=== PATIENT | female | born 1960 | race Caucasian/White ===

== ENCOUNTER 2022-10-04 08:41 | Outpatient (AMB) | payer OTHER, SELFPAY ==
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
[2022-10-04 08:44] VITALS: BP 126/76; PULSE 64; O2SAT 94; BMI 45.8
== END 2022-10-04 09:22 | disposition home or self-care (01) ==
PROVIDERS: PCP Internal Medicine; Visit Provider Internal Medicine
DX: M25.571 Pain in right ankle and joints of right foot (principal); M96.1 Postlaminectomy syndrome, not elsewhere classified; M25.441 Effusion, right hand; M25.442 Effusion, left hand
CPT/HCPCS: 99204

== ENCOUNTER → 2022-10-04 08:41 | Outpatient (BNVA) | payer OTHER, SELFPAY | PROVIDERS: PCP Internal Medicine; Visit Provider Internal Medicine | DX: M96.1 Postlaminectomy syndrome, not elsewhere classified (principal); M25.571 Pain in right ankle and joints of right foot; M25.449 Effusion, unspecified hand | CPT/HCPCS: 99202 ==

== ENCOUNTER 2022-11-10 07:41 | Outpatient (REF) | payer OTHER, SELFPAY | END 2022-11-10 07:42 | disposition home or self-care (01) | LOC: HO.CT 07:41 | PROVIDERS: PCP Physician Assistant Medical; Visit Provider Internal Medicine | DX: M96.1 Postlaminectomy syndrome, not elsewhere classified (principal) | CPT/HCPCS: 72131 ==

== ENCOUNTER 2022-11-17 12:12 | Outpatient (REF) | payer OTHER, SELFPAY | END 2022-11-17 12:13 | disposition home or self-care (01) | LOC: HO.MRI 12:12 | PROVIDERS: PCP Physician Assistant Medical; Visit Provider Internal Medicine | DX: M25.571 Pain in right ankle and joints of right foot (principal) | CPT/HCPCS: 73721 ==

== ENCOUNTER 2022-12-06 14:32 | Outpatient (AMB) | payer OTHER, SELFPAY ==
[2022-12-06 14:38] VITALS: RESP 12; BMI 46.1
--- NOTE | 2022-12-06 14:38 | A.OFFVIS_ITS ---
Intake Vital Signs 12/06/22 14:38 Height 5 ft 5 in Weight 277 lb BMI 46.1 Blood Pressure Location Lt brachial Position Sitting Respiration 12 Intake Visit Reasons: MRI/CT scan results/Lvm Allergies Penicillins Allergy (Severe, Verified 12/06/22 14:39) Anaphylaxis omeprazole [From Prilosec] Adverse Reaction (Severe, Verified 12/06/22 14:39) Rash pregabalin [From Lyrica] Adverse Reaction (Severe, Verified 12/06/22 14:39) fluid gain Medication List - Last Reconciled 12/06/22 by Whitley Rudolph LPN aspirin (Adult Aspirin Regimen) 81 mg PO DAILY celecoxib (Celebrex) 200 mg PO BID empagliflozin (Jardiance) 10 mg PO DAILY epinephrine (EpiPen) 0.3 mg IM Q4H PRN flecainide 100 mg PO Q12H gabapentin 300 mg PO QID glimepiride 2 mg PO DAILY PRN mecobalamin (vitamin B12) mcg IM .monthly metoprolol tartrate 25 mg PO DAILY mirabegron ER (Myrbetriq) 50 mg PO DAILY nitroglycerin 0.4 mg sublingual Q5M PRN ondansetron HCl 4 mg PO Q8H oxybutynin chloride ER 15 mg PO DAILY pantoprazole 40 mg PO DAILY pravastatin 10 mg PO BEDTIME rizatriptan (Maxalt) take 1 tab at onset of headache; if no relief may repeat 1 tab after at least 2 hrs; max = 3 tabs/24 hr PO ropinirole 3 mg PO BEDTIME tizanidine 2 mg PO Q8H PRN torsemide 40 mg PO DAILY tramadol 50 mg PO BID PRN trazodone 100 mg PO BEDTIME PRN venlafaxine ER 150 mg PO DAILY HPI MRI/CT scan results/Lvm HPI Details 62-year-old female who presents today to the office for a review of result. She has been experiencing back and leg pain. She states that her back pain is mostly localized on one side in the low back region. She had lumbar injections, which provided relief for a week, by Dr. Palma at [facility]. She had tried tramadol in the past. She states that her leg/foot pain has been worsening. She has weakness and instability in her lower extremities. She mostly stumbles during ambulation, which has led to multiple falls in the past. She has also noticed leg buckling while walking. She has had difficulty standing or walking in recent weeks. [facility] Medical History (Updated 12/06/22 @ 16:47 by Cheng Cruz MD) Lumbar post-laminectomy syndrome Hiatal hernia Diffuse spasm of esophagus Obstructive sleep apnea syndrome Osteoporosis Hyperlipidemia Family history of breast cancer Migraine Vitamin D deficiency Restless legs Salomon esophagus Morbid obesity Fibromyalgia Insomnia Cobalamin deficiency Spinal stenosis of lumbar region Lumbar radiculopathy Overactive bladder Chronic kidney disease, stage 3a Pain in left foot Allergy to penicillin ROQUE (dyspnea on exertion) Sensory ataxia Peripheral venous insufficiency Thrombophlebitis of superficial veins of both lower extremities Heart failure with normal ejection fraction Paroxysmal supraventricular tachycardia Coronary atherosclerosis Prinzmetal angina Hypertensive renal disease Anisocoria Chronic pain syndrome Anxiety Major depressive disorder Iron deficiency anemia Review of Systems Const All systems reviewed & are unremarkable except as noted in HPI and below Physical Exam Vital Signs: Last Vital Signs Resp 12 12/06/22 14:38 BMI result Body Mass Index 46.1 General: Appears afebrile. Alert and oriented. Mood and affect appropriate. Follows and participates in conversation appropriately. Respiratory effort is unlabored. Able to transition from sit to stand unassisted. Ambulates with bilaterally normal heel strike and toe off. Results Reviewed Results Reviewed: 11/17/22: MR ANKLE WITHOUT CONTRAST, RIGHT FINDINGS: BONE AND ARTICULAR CARTILAGE: Irregular linear low T1/low T2 signal through the medial aspect of the distal tibia contacting the medial, anterior, and posterior cortices. Prominent adjacent marrow edema. Findings are consistent with an incomplete fracture. No extension to the articular surface. Mildly displaced, oblique fracture through the distal fibular diametaphysis with cortical step off measuring up to 0.3 cm anteriorly. Surrounding new bone/callus formation with prominent marrow edema, consistent with a subacute fracture. The ankle mortise is maintained. No talar osteochondral lesion. No concerning lytic or blastic osseous lesion. Degenerative cystic change at the angle of [place]. Prominent plantar calcaneal spur. ACHILLES TENDON: Thickening of the distal Achilles tendon consistent with chronic tendinosis. No measurable tear. OTHER TENDONS: Fluid within the posterior tibialis, peroneal brevis, and peroneal longus tendon sheaths, which may represent normal variation versus mild tenosynovitis. Diffuse thickening and increased T2 signal of the tendon insertion, consistent with tendinosis. No transverse tendon tear or tendon retraction. LIGAMENTS: Complete absence of the anterior talofibular ligament consistent with a complete ligament tear. Near-complete full-thickness tear of the calcaneofibular and posterior talofibular ligaments. Grade 1 sprain/partial tear of the deltoid ligament. JOINT FLUID AND SOFT TISSUES: [id number] tibiotalar and posterior subtalar joint effusions. Prominent lateral subcutaneous edema. No soft tissue mass or fluid collection. PLANTAR FASCIA: Intact. SINUS TARSI AND TARSAL TUNNEL: Mild attenuation of the sinus tarsi which can be seen in the setting of sinus tarsi syndrome. Patent tarsal tunnel. IMPRESSION: 1. Incomplete fracture through the medial aspect of the distal tibia with prominent adjacent marrow edema. No extension to the articular surface. 2. Mildly displaced, subacute fracture through the distal fibular diametaphysis with prominent surrounding new bone/callus formation and prominent marrow edema. 3. Complete tear of the anterior talofibular ligament with near-complete tears of the calcaneofibular and posterior talofibular ligaments. Grade 1 sprain/partial tear of the deltoid ligament. 4. Fluid within the posterior tibialis, peroneal brevis, and peroneal longus tendon sheaths, which may represent normal variation versus mild tenosynovitis. No transverse tendon tear or tendon retraction. Chronic Achilles tendinosis without a measurable tear. 5. [id number] tibiotalar and posterior subtalar joint effusions. Prominent lateral subcutaneous edema. 6. Attenuation of the sinus tarsi which can be seen in the setting of sinus tarsi syndrome. 11/10/22: CT LUMBAR SPINE WITHOUT CONTRAST FINDINGS: Transitional lumbosacral anatomy with sacralized L5 vertebral body characterized by hypertrophy of the bilateral L5 transverse processes and fusion with the sacrum bilaterally (Castellvi IIIb). For the purposes of this examination the L5-S1 disc space can be seen on image 104, series 4. There is also fusion across the L5-S1 disc space. Normal lumbar lordosis is preserved. Grade 1 anterolisthesis at L3-L4. Vertebral body heights are maintained. There is no suspicious osseous lesion. Severe L4-L5 disc height loss with subchondral sclerosis/cystic change, ventral disc osteophyte and vacuum phenomenon. There is also mild to moderate L1-L2 disc height loss with vacuum phenomenon and mild L3-L4 disc height loss. Please not canal patency is not well assessed on this examination due to inherent limitations of CT without intrathecal contrast. Within these limitations, there is suggestion of congenital spinal canal narrowing with crowding/prominence of the dorsal epidural fat and degenerative changes with level by level detail are as follows: L1-L2: Annular disc bulge with punctate focus of inferiorly extruded air within the left lateral recess, mild bilateral facet hypertrophy and prominence of the dorsal epidural fat. Apparent mild spinal canal and subarticular zone narrowing. Mild bilateral neural foraminal stenosis. L2-L3: Annular disc bulge and mild bilateral facet arthrosis with ligamentum flavum thickening. Prominence of the dorsal epidural fat. Apparent moderate to severe spinal canal and subarticular zone narrowing. Mild to moderate left and mild right neural foraminal stenosis. L3-L4: Posterior disc uncovering/pseudodisc bulge, advanced bilateral facet arthrosis with vacuum phenomenon and partially calcified ligamentum flavum thickening. Severe spinal canal stenosis and subarticular zone narrowing with compression of the thecal sac and traversing bilateral L4 nerve roots. Moderate left and mild right neural foraminal stenosis with mass effect along the exiting/extraforaminal left L4 nerve root and contact along the extraforaminal right L4 nerve root.. L4-L5: Disc osteophyte complex with left lateral recess disc protrusion and right lateral recess disc osteophyte protrusion. Advanced bilateral facet arthrosis. Moderate spinal canal and bilateral subarticular zone narrowing with compression of the traversing bilateral L5 nerve roots. Severe right and moderate to severe left neural foraminal stenosis with compression of the exiting right L4 nerve root and mild mass effect on the exiting left L4 nerve root. L5-S1: No spinal canal or neural foraminal stenosis. There is mild fatty atrophy of the paraspinal musculature. 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 Postsurgical changes of the stomach with associated anastomosis and additional enteric anastomosis in the left hemiabdomen. The abdominal aorta is of normal contour and caliber. Control Integration Engineer radiographs demonstrate asymmetric left-sided CAM lesion with loss of the normal femoral head-neck offset may predispose to femoro-acetabular impingement and clinical correlation is advised. Degenerative changes at the sacroiliac joints with osseous spurring, subchondral sclerosis and vacuum phenomenon. IMPRESSION: 1. Transitional lumbosacral anatomy (Castellvi IIIb). 2. Advanced multilevel lumbar spondylosis. Severe spinal canal stenosis at L3- L4 and moderate to severe spinal canal and subarticular zone narrowing at L2-L3 and L4-L5. Varying degrees of subarticular zone narrowing, notably with compression of the traversing bilateral L4 and L5 nerve roots at L3-L4 and L4- L5, respectively. Neural foraminal stenosis is most pronounced and severe in the right at L4-L5 with compression of the exiting right L4 nerve root. 3. Control Integration Engineer radiographs demonstrate asymmetric left-sided CAM lesion with loss of the normal femoral head-neck offset may predispose to femoro-acetabular imping ement and clinical correlation is advised. Assessment & Plan Assessment & Plan (1) Current chronic use of systemic steroids: Code(s): Z79.52 - residential (current) use of systemic steroids (2) Lumbar post-laminectomy syndrome: Code(s): M96.1 - Postlaminectomy syndrome, not elsewhere classified (3) Tibial fracture: Comment: Distal Code(s): S82.209A - Unspecified fracture of shaft of unspecified tibia, initial encounter for closed fracture Qualifiers: Encounter type: subsequent encounter Tibia location: distal Fracture type: closed Fracture alignment: nondisplaced Laterality: right Fracture healing: with delayed healing (4) Spondylolisthesis, lumbar region: Code(s): M43.16 - Spondylolisthesis, lumbar region Plan I ordered a DEXA scan for further evaluation of osteoporosis. I also ordered MRI scan of lumbar spine to interrogate for spinal stenosis and x-ray of the lumbar spine to assess instability. She may need a decompression for spinal stenosis prior to potential neuromodulation. She also has significant endplate changes that may benefit from a BVN ablation. Ordered a boot to wear until satisfactory relief of pain is achieved from fracture healing. The patient will follow up for review of the results. Scribed for Dr. Cruz by Dixon Salazar, chief medical officer, on 12/06/2022. I, Dr. Cruz, have personally reviewed and agree with the information entered by the scribe. Orders: Orders XR DEXA axial skeleton Today M25.571 - Pain in right ankle and joints of right foot, M96.1 - Postlaminectomy syndrome, not elsewhere classified, Z79.52 - ad terminal makeup operator (current) use of systemic steroids MR lumbar spine wo con Today M96.1 - Postlaminectomy syndrome, not elsewhere classified XR lumbar spine bending only Today M43.16 - Spondylolisthesis, lumbar region Coding Level of Care Code New Pt Level 4 (67396) Diagnoses Current chronic use of systemic steroids Z79.52 Lumbar post-laminectomy syndrome M96.1 Tibial fracture S82.209A Encounter type: subsequent encounter Tibia location: distal Fracture type: closed Fracture alignment: nondisplaced Laterality: right Fracture healing: with delayed healing Spondylolisthesis, lumbar region M43.16
== END 2022-12-06 15:12 | disposition home or self-care (01) ==
PROVIDERS: PCP Physician Assistant Medical; Visit Provider Internal Medicine
DX: M96.1 Postlaminectomy syndrome, not elsewhere classified (principal); Z79.52 Long term (current) use of systemic steroids; S82.209D Unspecified fracture of shaft of unspecified tibia, subsequent encounter for closed fracture with routine healing; M43.16 Spondylolisthesis, lumbar region
CPT/HCPCS: 99214

== ENCOUNTER → 2022-12-06 14:32 | Outpatient (BNVA) | payer OTHER, SELFPAY | PROVIDERS: PCP Physician Assistant Medical; Visit Provider Internal Medicine | DX: M43.16 Spondylolisthesis, lumbar region (principal); M96.1 Postlaminectomy syndrome, not elsewhere classified; S82.209D Unspecified fracture of shaft of unspecified tibia, subsequent encounter for closed fracture with routine healing; Z79.52 Long term (current) use of systemic steroids | CPT/HCPCS: 99212 ==

== ENCOUNTER 2022-12-13 13:50 | Outpatient (REF) | payer OTHER, SELFPAY ==
--- NOTE | ~2022-12-13 | XR_ITS ---
EXAMINATION: XR LUMBOSACRAL SPINE BENDING FILMS ONLY CLINICAL INFORMATION: Spondylolisthesis of lumbar region COMPARISON: CT 11/11/2019 TECHNIQUE: Lateral neutral, flexion and extension views of lumbar spine. FINDINGS: Allowing for difference in technique there is no significant interval change in narrowing of L5-S1 intervertebral disc space and grade 1 anterior listhesis of L4 over L5. There is narrowing cough L2-L3 also. There is mild instability of spondylolisthesis on flexion and extension views with exaggeration of listhesis on flexion view XR/XR lumbar spine bending only IMPRESSION: Unstable is spondylolisthesis at the level of L4-L5.
== END 2022-12-13 13:51 | disposition home or self-care (01) ==
LOC: HO.XRAY 13:50
PROVIDERS: PCP Physician Assistant Medical; Visit Provider Internal Medicine
DX: M43.16 Spondylolisthesis, lumbar region (principal)
CPT/HCPCS: 72120

== ENCOUNTER 2023-03-29 15:06 | Outpatient (AMB) | payer OTHER, SELFPAY ==
--- NOTE | 2023-03-29 15:08 | MHC.OFFVIS ---
Intake Vital Signs 03/29/23 15:09 Height 5 ft 5 in Weight 275 lb 12.772 oz BMI 45.9 BP 136/74 Blood Pressure Location Lt brachial Position Sitting Pulse 75 Pulse Source Pulse Oximeter Temp 97.2 F Temp Source Skin Pulse Oximetry (%) 95 Intake Visit Reasons: Hand effusion Intake Note: New pt presents today for consult, previously seen by Dr Gr in [place]. C/o hand pain and swelling for approx 4-5 years; also morning stiffness. Currently follows with Dr Marlow Chip Bin Convey[facility] Tender Required: No Accompanied by: Self / Same As Patient Allergies Penicillins Allergy (Severe, Verified 03/29/23 15:15) Anaphylaxis omeprazole [From Prilosec] Adverse Reaction (Severe, Verified 03/29/23 15:15) Rash pregabalin [From Lyrica] Adverse Reaction (Severe, Verified 03/29/23 15:15) fluid gain Medication List - Last Reconciled 03/29/23 by Torie Eduardo MD albuterol sulfate 90 mcg/actuation inhalation aspirin (Adult Aspirin Regimen) 81 mg PO DAILY buprenorphine 15 mcg/hour 1 patch topical QWEEK celecoxib (Celebrex) 200 mg PO BID ciclopirox 0.77% topical cyanocobalamin (vitamin B-12) mcg IM cyclobenzaprine 5 mg PO TID PRN empagliflozin (Jardiance) 10 mg PO DAILY epinephrine (EpiPen) 0.3 mg IM Q4H PRN flecainide 100 mg PO Q12H gabapentin 1 morning 2 at lunch, 1 late afternoon , 2 bedtime orally 4 times a day; glimepiride 2 mg PO DAILY PRN isosorbide mononitrate ER 15 mg PO QAM lifitegrast 5% (Xiidra) drps ophthalmic (eye) loperamide mg PO losartan 25 mg PO DAILY loteprednol etabonate 0.5% (Lotemax) ophthalmic (eye) metoprolol succinate ER 25 mg PO DAILY mirabegron ER (Myrbetriq) 50 mg PO DAILY nitroglycerin 0.4 mg sublingual Q5M PRN ondansetron HCl 4 mg PO Q8H oxybutynin chloride ER 15 mg PO DAILY pantoprazole 40 mg PO BID pravastatin 10 mg PO BEDTIME rizatriptan (Maxalt) take 1 tab at onset of headache; if no relief may repeat 1 tab after at least 2 hrs; max = 3 tabs/24 hr PO ropinirole 3 mg PO BEDTIME tizanidine 2 mg PO BEDTIME torsemide 40mg qam, additional 20mg may be taken orally daily; tramadol 50 mg PO BID PRN trazodone 50 - 100 mg PO BEDTIME venlafaxine ER 150 mg PO DAILY HPI HPI Comments History of Present Illness Details This is a 62-year-old female who presents for evaluation of bilateral hand pain and swelling. She stated that she used to follow-up with Dr. Gr years ago and was diagnosed with fibromyalgia. She states that for the last 2 and half years she has been having bilateral hand pain and swelling, worse on the right, usually involves the 2nd and 3rd MCP and is now starting to involve the 4th and 5th MCPs. Symptoms not improved with NSAIDs, 2 weeks ago patient was having left hip pain, she took a prednisone prescription that was left over from a prescription for bronchitis last year. The prednisone helped her hip and improved the pain and swelling of her hands. She was also having significant right ankle pain. She was recently evaluated by Pain Management for a spinal cord stimulator right ankle MRI was ordered which showed right distal tibia fracture as well as multiple ligament tears as well as possible tenosynovitis. She was evaluated by a foot and ankle surgeon and no specific treatment was recommended. States that her brother was diagnosed with my Harleykz ds (IgG4 related ds) and follows up in [place]. She denies any history of DVT/PE [facility] Medical History (Updated 03/29/23 @ 16:22 by Torie Eduardo MD) Hiatal hernia Diffuse spasm of esophagus Obstructive sleep apnea syndrome Osteoporosis Hyperlipidemia Family history of breast cancer Migraine Vitamin D deficiency Restless legs Salomon esophagus Morbid obesity Fibromyalgia Insomnia Cobalamin deficiency Spinal stenosis of lumbar region Lumbar radiculopathy Overactive bladder Chronic kidney disease, stage 3a Pain in left foot Allergy to penicillin ROQUE (dyspnea on exertion) Sensory ataxia Peripheral venous insufficiency Thrombophlebitis of superficial veins of both lower extremities Heart failure with normal ejection fraction Paroxysmal supraventricular tachycardia Coronary atherosclerosis Prinzmetal angina Hypertensive renal disease Anisocoria Chronic pain syndrome Anxiety Major depressive disorder Iron deficiency anemia Surgical History (Updated 03/29/23 @ 15:17 by Gia Raphael [facility]) History of total right knee replacement H/O gastric bypass Lumbar post-laminectomy syndrome Family History (Updated 03/29/23 @ 15:19 by SEBAS Zhu) Mother Hypertension Father Non-Hodgkin lymphoma Hypertension Diabetes Brother Mikulicz syndrome Female Reproductive History Menstrual Total pregnancies: 0 Review of Systems Card Reports dyspnea on exertion Resp Reports dyspnea on exertion Musc Reports arthralgias, Reports joint swelling and Reports stiffness Skin/Breast Denies rash Physical Exam Vital Signs: Last Vital Signs Temp 97.2 F 03/29/23 15:09 Pulse 75 03/29/23 15:09 BP 136/74 03/29/23 15:09 Pulse Ox 95 03/29/23 15:09 BMI result Body Mass Index 45.9 Const General: cooperative, healthy appearing and comfortable Nutritional Appearance: obese morbidly obese Orientation/consciousness: patient oriented x3 Limitations: ambulation with cane HEENT Head: Yes normocephalic and Yes atraumatic Mouth: moist mucous membranes Resp Effort & Inspection: normal respiratory effort and able to speak in complete sentences Skin General skin exam: no rashes or lesions noted Neuro General: patient oriented x3 Extrem Other: Right wrist pain with full flexion Right 2nd and 3rd MCP tenderness and mild puffiness Few tender PIPs right hand Left 2nd and 3rd MCP tenderness Normal nailfold capillaroscopy Assessment & Plan Assessment & Plan (1) Swelling of hand joint: Code(s): M25.449 - Effusion, unspecified hand Qualifiers: Laterality: right Qualified Code(s): M25.441 - Effusion, right hand Plan: This is a 62-year-old female who presents for evaluation of bilateral hand pain and swelling, worse on the right, symptoms most severe in the 2nd and 3rd MCP, history of right distal tibia fracture with no memory of any trauma. It ankle MRI showing multiple tendon tears and tenosynovitis. Brother with IgG4 related disease. Will order comprehensive thoracic to screen for underlying autoimmune rheumatic disease. Check bilateral hand and wrist x-rays Plan I spent 47 minutes reviewing patient's chart, evaluating patient, ordering diagnostic workup, counseling patient and documenting in the chart Orders: Orders KELLY Reflex Titer and Pattern Today M32.9 - Systemic lupus erythematosus, unspecified Complement C3 Today M32.9 - Systemic lupus erythematosus, unspecified Complement C4 Today M32.9 - Systemic lupus erythematosus, unspecified C Reactive Protein Today M32.9 - Systemic lupus erythematosus, unspecified DNA Double Stranded-Crithidia Today M32.9 - Systemic lupus erythematosus, unspecified Erythrocyte Sedimentation Rate Today M32.9 - Systemic lupus erythematosus, unspecified Comprehensive Met. Panel Today M32.9 - Systemic lupus erythematosus, unspecified Protein Electrophoresis, Serum Today M32.9 - Systemic lupus erythematosus, unspecified Rheumatoid Factor Today M25.449 - Effusion, unspecified hand Cyclic Citrullinated Peptide Today M25.449 - Effusion, unspecified hand Lysozyme, Serum Today D86.9 - Sarcoidosis, unspecified Hepatitis A,B,C Profile Today Z11.59 - Encounter for screening for other viral diseases T Spot TB Today Z11.7 - Encounter for testing for latent tuberculosis infection Immunoglobulin G Subclasses Today D89.84 - IgG4-related disease Ferritin Today M11.20 - Other chondrocalcinosis, unspecified site Transferrin Today M11.20 - Other chondrocalcinosis, unspecified site Parathyroid Hormone Intact Today M11.20 - Other chondrocalcinosis, unspecified site Anti Extractable Nuclear Ag Today M32.9 - Systemic lupus erythematosus, unspecified Anti DNA DS Antibody Today M32.9 - Systemic lupus erythematosus, unspecified Protein Creatinine Ratio, Ur Today M32.9 - Systemic lupus erythematosus, unspecified Sjogren's Antibodies Today M32.9 - Systemic lupus erythematosus, unspecified UA w Microscopic Today M32.9 - Systemic lupus erythematosus, unspecified Complete Blood Count Auto Diff Today M32.9 - Systemic lupus erythematosus, unspecified Immunofixation Pnl, Serum Today M32.9 - Systemic lupus erythematosus, unspecified Angiotensin Converting Enzyme Today D86.9 - Sarcoidosis, unspecified IRON PROFILE Today M11.20 - Other chondrocalcinosis, unspecified site TSH reflex Free T4 Today M11.20 - Other chondrocalcinosis, unspecified site XR hand wrist LT Today M25.449 - Effusion, unspecified hand XR hand wrist RT Today M25.449 - Effusion, unspecified hand Coding Level of Care Code New Pt Level 4 (66696) Diagnoses Swelling of joint of right hand M25.441 Laterality: right
[2023-03-29 15:09] VITALS: BP 136/74; PULSE 75; TEMP 36.2; O2SAT 95; BMI 45.9
== END 2023-03-29 15:59 | disposition home or self-care (01) ==
PROVIDERS: PCP Internal Medicine; Visit Provider Student in an Organized Health Care Education/Training Program
DX: M25.441 Effusion, right hand (principal)
CPT/HCPCS: 99204

== ENCOUNTER → 2023-03-29 15:06 | Outpatient (BNVA) | payer OTHER, SELFPAY | PROVIDERS: PCP Internal Medicine; Visit Provider Student in an Organized Health Care Education/Training Program | DX: M25.441 Effusion, right hand (principal) | CPT/HCPCS: 99202 ==

== ENCOUNTER 2023-03-30 16:09 | Outpatient (REF) | payer OTHER, SELFPAY ==
--- NOTE | ~2023-03-30 | XR_ITS ---
EXAMINATION: XR HAND/WRIST, RIGHT CLINICAL INFORMATION: Effusion, unspecified hand. COMPARISON: None available. TECHNIQUE: PA, lateral, and oblique views of the right hand and wrist, together with a dedicated navicular view. FINDINGS: Bony mineralization is normal. There is a boutonniere deformity of the right index finger, with PIP flexion and DIP extension. This suggests an extensor slip tear injury. No associated fracture or dislocation is seen. The proximal and distal carpal rows are intact. There is no abnormal bony erosive change. No focal soft tissue swelling, gas or foreign body is seen. XR/XR hand wrist RT IMPRESSION: A boutonniere deformity is seen of the right index finger, suggesting an extensor digitorum tendon tear injury. EXAMINATION: XR HAND/WRIST, LEFT CLINICAL INFORMATION: Effusion, unspecified hand. COMPARISON: None available. TECHNIQUE: PA, lateral, and oblique views of the left hand and wrist, together with a dedicated navicular view. FINDINGS: Bony alignment and mineralization are normal. There is moderate osteoarthritic change of the first carpometacarpal joint. No fracture or dislocation is seen. The proximal and distal carpal rows are intact. There is no abnormal bone erosion. No focal soft tissue swelling, gas or foreign body is seen. IMPRESSION: 1. There is moderate osteoarthritic change of the left first carpometacarpal joint. 2. No fracture or dislocation is seen. 3. There is no abnormal bone erosion.
--- NOTE | ~2023-03-30 | XR_ITS ---
EXAMINATION: XR HAND/WRIST, RIGHT CLINICAL INFORMATION: Effusion, unspecified hand. COMPARISON: None available. TECHNIQUE: PA, lateral, and oblique views of the right hand and wrist, together with a dedicated navicular view. FINDINGS: Bony mineralization is normal. There is a boutonniere deformity of the right index finger, with PIP flexion and DIP extension. This suggests an extensor slip tear injury. No associated fracture or dislocation is seen. The proximal and distal carpal rows are intact. There is no abnormal bony erosive change. No focal soft tissue swelling, gas or foreign body is seen. XR/XR hand wrist LT IMPRESSION: A boutonniere deformity is seen of the right index finger, suggesting an extensor digitorum tendon tear injury. EXAMINATION: XR HAND/WRIST, LEFT CLINICAL INFORMATION: Effusion, unspecified hand. COMPARISON: None available. TECHNIQUE: PA, lateral, and oblique views of the left hand and wrist, together with a dedicated navicular view. FINDINGS: Bony alignment and mineralization are normal. There is moderate osteoarthritic change of the first carpometacarpal joint. No fracture or dislocation is seen. The proximal and distal carpal rows are intact. There is no abnormal bone erosion. No focal soft tissue swelling, gas or foreign body is seen. IMPRESSION: 1. There is moderate osteoarthritic change of the left first carpometacarpal joint. 2. No fracture or dislocation is seen. 3. There is no abnormal bone erosion.
[2023-03-30 16:47] LABS: MANUAL DIFF FLAG NO
[2023-03-30 16:53] LABS: Basophils Percent Auto 0.3 % (0-2); Eosinophils Absolute Auto 0.3 X10*3/uL (0.0-0.4); Hemoglobin 13.9 g/dl (12.0-16.0); Imm Gran Abs Auto 0.02 X10*3/uL (0.00-0.03); Imm Gran Pct Auto 0.2 % (0.0-0.4); Lymphocytes Absolute Auto 2.1 X10*3/uL (1.2-4.9); Lymphocytes Percent Auto 19.9 % (20-40); Mean Corpuscular HGB Conc 31.6 g/dl (31.0-35.0); Mean Corpuscular Hemoglobin 26.8 pg (27.0-33.0); Mean Corpuscular Volume 84.8 fL (80.0-98.0); Mean Platelet Volume 10.1 fL (9.4-12.3); Monocytes Absolute Auto 0.6 X10*3/uL (0.1-1.2); Monocytes Percent Auto 5.9 % (2-11); Neutrophils Absolute Auto 7.5 x10*3/uL (2.0-8.3); Neutrophils Percent Auto 70.7 % (45-73); Platelet Count 294 X10*3/uL (160-400); Red Blood Count 5.19 X10*6/uL (4.20-5.50); Red Cell Distribution Width 15.1 % (11.0-16.0); White Blood Count 10.6 X10*3/uL (4.8-10.8)
[2023-03-30 17:20] LABS: Rheumatoid Factor < 13.0 IU/mL (<15.0)
[2023-03-30 17:34] LABS: Alanine Aminotransferase 17 U/L (0-31); Albumin Level 3.9 g/dL (3.5-5.0); Alkaline Phosphatase 116 U/L (39-117); Anion Gap 13 (12-20); Aspartate Amino Transferase 19 U/L (5-31); Bilirubin Total 0.3 mg/dL (0.0-1.0); Blood Urea Nitrogen 23 mg/dL (9-16); C Reactive Protein 1.09 mg/dL (< or = 0.50); Calcium 8.5 mg/dL (8.4-10.2); Carbon Dioxide 21 mmol/L (22-29); Chloride 108 mmol/L (96-108); Estimated Glomerular Filt Rate 58; Glucose Random 193 mg/dL (60-115); Iron 53 mcg/dL (30-160); Percent Iron Saturation 19 % (15-50); Potassium 4.4 mmol/L (3.3-5.1); Sodium 138 mmol/L (135-145); Total Iron Binding Capacity 286 mcg/dL (228-428); Unsaturated Iron Binding 233 ug/dL
[2023-03-30 17:35] LABS: Erythrocyte Sedimentation Rate 12 MM/HR (0-20)
[2023-03-30 17:49] LABS: Appearance Urine Clear; Color Urine Yellow; Glucose Urine UA >=1000 mg/dL (Negative); Leukocyte Esterase Urine Small (1+) (Negative); Nitrite Urine Negative (Negative); PH 5.5 (5.0-9.0); Specific Gravity - Urine >= 1.030 (1.005-1.025); UMIC TRIGGER UA YES; Urine Blood Negative (Negative); Urine Ketones Negative (Negative); Urine Protein Negative (Neg-Trace)
[2023-03-30 17:50] LABS: Ferritin 88 ng/mL (10-250); TSH reflex Free T4 1.54 uIU/mL (0.32-4.0)
[2023-03-30 17:51] LABS: Bacteria Urine Trace (None Seen); Hyaline Casts Urine 0-2 /LPF (0-2); RBC Urine 0-2 /HPF (0-2); WBC Urine >50 /HPF (0-5)
[2023-03-30 18:10] LABS: Creatinine Urine 79.55 mg/dL; Protein/Creatinine Ratio, Ur 0.13 (<0.2); Total Protein Urine Random 10 mg/dL (<12)
[2023-03-31 05:38] LABS: Parathyroid Hormone Intact 139.5 pg/mL (8.7-77.1)
[2023-03-31 08:27] LABS: HBS Num1 > 1000.00 mIU/mL (0-7.99); HBc Num1 0.11 S/CO (0.00-0.79); HBsAGNum1 0.44 S/CO (0.00-0.99); Hepatitis B Core Antibody Nonreactive (Nonreactive); Hepatitis B Surface Antigen Negative (Negative); ~HepC Num1 0.12 S/CO (0.00-0.79); ~Hepatitis A Antibody IgM Nonreactive (Nonreactive); ~Hepatitis B Surface Antibody REACTIVE (Nonreactive); ~Hepatitis C Antibody Nonreactive (Nonreactive)
[2023-03-31 19:23] LABS: Transferrin 269 mg/dL (188-341)
[2023-03-31 20:34] LABS: Anti DNA DS Antibody 1 IU/mL; Antibody to SS-A Antigen <1.0 NEG AI (<1.0 NEG); Antibody to SS-B Antigen <1.0 NEG AI (<1.0 NEG); SM/Ribonucleoprotein Ab <1.0 NEG AI (<1.0 NEG); Smith Protein <1.0 NEG AI (<1.0 NEG)
[2023-04-01 07:48] LABS: Complement C3 149 mg/dL (83-193)
[2023-04-01 11:59] LABS: Prot Elec - Albumin 3.7 g/dL (3.8-4.8); Prot Elec - Alpha1 0.3 g/dL (0.2-0.3); Prot Elec - Alpha2 0.7 g/dL (0.5-0.9); Prot Elec - Beta 1 0.5 g/dL (0.4-0.6); Prot Elec - Beta 2 0.4 g/dL (0.2-0.5); Prot Elec - Total Protein 6.5 g/dL (6.1-8.1)
[2023-04-01 14:13] LABS: Cyclic Citrullinated Peptide <16 UNITS
[2023-04-01 16:44] LABS: Immunoglobulin G Subclass 1 552 mg/dL (382-929); Immunoglobulin G Subclass 2 404 mg/dL (241-700); Immunoglobulin G Subclass 3 7 mg/dL (22-178); Immunoglobulin G Subclass 4 98.4 mg/dL (4-86); Immunoglobulin G Total 1021 mg/dL (600-1540)
[2023-04-02 08:28] LABS: TS Negative Control Passed; TS Panel A 0; TS Panel B 0; TS Positive Control Passed; TSpotTB Negative (Negative)
[2023-04-03 13:29] LABS: Angiotensin Converting Enzyme 23.2 U/L (9-67)
[2023-04-04 13:08] LABS: IgA 208 mg/dL (70-320); IgG 1108 mg/dL (600-1540); IgM 88 mg/dL (50-300)
[2023-04-05 15:07] LABS: DNAds, Crithidia Antibody Positive (Negative)
[2023-04-05 15:44] LABS: DNAds, Crithidia Antibody 1:10 titer (<1:10)
[2023-04-06 19:58] LABS: Lysozyme, Serum 8.4 mcg/mL (5.0-11.0)
[2023-04-11 15:44] LABS: Anti Nuclear Antibody Screen NEGATIVE (NEGATIVE)
== END 2023-03-30 16:10 | disposition home or self-care (01) ==
LOC: HO.LAB 16:09
PROVIDERS: PCP Physician Assistant Medical; Visit Provider Student in an Organized Health Care Education/Training Program
DX: M25.449 Effusion, unspecified hand (principal)
CPT/HCPCS: 36415; 73110; 73130; 80053; 81001; 82164; 82570; 82728; 82784; 83540; 83970; 84156; 84165; 84443; 84466; 85025; 85549; 85652; 86038; 86140; 86160; 86200; 86225; 86235; 86255; 86334; 86431; 86481; 86704; 86706; 86709; 86803; 87340

== ENCOUNTER 2023-04-19 13:57 | Outpatient (AMB) | payer OTHER, SELFPAY ==
[2023-04-19 14:07] VITALS: BP 128/66; PULSE 79; TEMP 36.2; O2SAT 95; BMI 46.7
--- NOTE | 2023-04-19 14:07 | MHC.OFFVIS ---
Intake Vital Signs 04/19/23 14:07 Height 5 ft 5 in Weight 280 lb 13.903 oz BMI 46.7 BP 128/66 Blood Pressure Location Rt brachial Position Sitting Pulse 79 Pulse Source Pulse Oximeter Temp 97.2 F Temp Source Skin Pulse Oximetry (%) 95 Oxygen Delivery Method Room Air Intake Visit Reasons: discuss lab Result Intake Note: Patient last seen 03/29/23 presents today for follow up and test results. 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 Part Time Required: No Accompanied by: Friend Allergies Penicillins Allergy (Severe, Verified 04/19/23 14:15) Anaphylaxis omeprazole [From Prilosec] Adverse Reaction (Severe, Verified 04/19/23 14:15) Rash pregabalin [From Lyrica] Adverse Reaction (Severe, Verified 04/19/23 14:15) fluid gain Medication List - Last Reconciled 04/19/23 by Torie Eduardo MD albuterol sulfate 90 mcg/actuation inhalation aspirin (Adult Aspirin Regimen) 81 mg PO DAILY buprenorphine 15 mcg/hour 1 patch topical QWEEK celecoxib (Celebrex) 200 mg PO BID ciclopirox 0.77% topical cyanocobalamin (vitamin B-12) mcg IM cyclobenzaprine 5 mg PO TID PRN empagliflozin (Jardiance) 10 mg PO DAILY epinephrine (EpiPen) 0.3 mg IM Q4H PRN flecainide 100 mg PO Q12H gabapentin 1 morning 2 at lunch, 1 late afternoon , 2 bedtime orally 4 times a day; glimepiride 2 mg PO DAILY PRN isosorbide mononitrate ER 15 mg PO QAM lifitegrast 5% (Xiidra) drps ophthalmic (eye) loperamide mg PO losartan 25 mg PO DAILY loteprednol etabonate 0.5% (Lotemax) ophthalmic (eye) metoprolol succinate ER 25 mg PO DAILY nitroglycerin 0.4 mg sublingual Q5M PRN ondansetron HCl 4 mg PO Q8H oxybutynin chloride ER 15 mg PO DAILY pantoprazole 40 mg PO BID pravastatin 10 mg PO BEDTIME rizatriptan (Maxalt) take 1 tab at onset of headache; if no relief may repeat 1 tab after at least 2 hrs; max = 3 tabs/24 hr PO ropinirole 3 mg PO BEDTIME tizanidine 2 mg PO BEDTIME torsemide 40mg qam, additional 20mg may be taken orally daily; tramadol 50 mg PO BID PRN trazodone 50 - 100 mg PO BEDTIME venlafaxine ER 150 mg PO DAILY vibegron (Gemtesa) 75 mg PO DAILY HPI HPI Comments History of Present Illness Details Patient returns for follow-up after completion of her diagnostic workup. Continues to have the same joint pain and swelling both hands Initial history: This is a 62-year-old female who presents for evaluation of bilateral hand pain and swelling. She stated that she used to follow-up with Dr. Gr years ago and was diagnosed with fibromyalgia. She states that for the last 2 and half years she has been having bilateral hand pain and swelling, worse on the right, usually involves the 2nd and 3rd MCP and is now starting to involve the 4th and 5th MCPs. Symptoms not improved with NSAIDs, 2 weeks ago patient was having left hip pain, she took a prednisone prescription that was left over from a prescription for bronchitis last year. The prednisone helped her hip and improved the pain and swelling of her hands. She was also having significant right ankle pain. She was recently evaluated by Pain Management for a spinal cord stimulator right ankle MRI was ordered which showed right distal tibia fracture as well as multiple ligament tears as well as possible tenosynovitis. She was evaluated by a foot and ankle surgeon and no specific treatment was recommended. States that her brother was diagnosed with my Medz ds (IgG4 related ds) and follows up in [place]. She denies any history of DVT/PE [facility] Medical History Hiatal hernia Diffuse spasm of esophagus Obstructive sleep apnea syndrome Osteoporosis Hyperlipidemia Family history of breast cancer Migraine Vitamin D deficiency Restless legs Salomon esophagus Morbid obesity Fibromyalgia Insomnia Cobalamin deficiency Spinal stenosis of lumbar region Lumbar radiculopathy Overactive bladder Chronic kidney disease, stage 3a Pain in left foot Allergy to penicillin ROQUE (dyspnea on exertion) Sensory ataxia Peripheral venous insufficiency Thrombophlebitis of superficial veins of both lower extremities Heart failure with normal ejection fraction Paroxysmal supraventricular tachycardia Coronary atherosclerosis Prinzmetal angina Hypertensive renal disease Anisocoria Chronic pain syndrome Anxiety Major depressive disorder Iron deficiency anemia Surgical History History of total right knee replacement H/O gastric bypass Lumbar post-laminectomy syndrome Family History Mother Hypertension Father Non-Hodgkin lymphoma Hypertension Diabetes Brother Mikulicz syndrome Review of Systems [facility] Reports arthralgias, Reports joint swelling and Reports stiffness Skin/Breast Denies rash Physical Exam Vital Signs: Last Vital Signs Temp 97.2 F 04/19/23 14:07 Pulse 79 04/19/23 14:07 BP 128/66 04/19/23 14:07 Pulse Ox 95 04/19/23 14:07 Oxygen Delivery Method Room Air 04/19/23 14:07 BMI result Body Mass Index 46.7 Const General: cooperative, healthy appearing and comfortable Nutritional Appearance: obese morbidly obese Orientation/consciousness: patient oriented x3 Limitations: ambulation with cane HEENT Head: Yes normocephalic and Yes atraumatic Mouth: moist mucous membranes Resp Effort & Inspection: normal respiratory effort and able to speak in complete sentences Skin General skin exam: no rashes or lesions noted Neuro General: patient oriented x3 Extrem Other: Right wrist pain with full flexion Right 2nd and 3rd MCP tenderness and mild puffiness Few tender PIPs right hand Left 2nd and 3rd MCP tenderness Normal nailfold capillaroscopy Results Reviewed Results Reviewed: 11/17/22: MR ANKLE WITHOUT CONTRAST, RIGHT FINDINGS: BONE AND ARTICULAR CARTILAGE: Irregular linear low T1/low T2 signal through the medial aspect of the distal tibia contacting the medial, anterior, and posterior cortices. Prominent adjacent marrow edema. Findings are consistent with an incomplete fracture. No extension to the articular surface. Mildly displaced, oblique fracture through the distal fibular diametaphysis with cortical step off measuring up to 0.3 cm anteriorly. Surrounding new bone/callus formation with prominent marrow edema, consistent with a subacute fracture. The ankle mortise is maintained. No talar osteochondral lesion. No concerning lytic or blastic osseous lesion. Degenerative cystic change at the angle of Gissane. Prominent plantar calcaneal spur. ACHILLES TENDON: Thickening of the distal Achilles tendon consistent with chronic tendinosis. No measurable tear. OTHER TENDONS: Fluid within the posterior tibialis, peroneal brevis, and peroneal longus tendon sheaths, which may represent normal variation versus mild tenosynovitis. Diffuse thickening and increased T2 signal of the tendon insertion, consistent with tendinosis. No transverse tendon tear or tendon retraction. LIGAMENTS: Complete absence of the anterior talofibular ligament consistent with a complete ligament tear. Near-complete full-thickness tear of the calcaneofibular and posterior talofibular ligaments. Grade 1 sprain/partial tear of the deltoid ligament. JOINT FLUID AND SOFT TISSUES: [id number]-nitnarno tibiotalar and posterior subtalar joint effusions. Prominent lateral subcutaneous edema. No soft tissue mass or fluid collection. PLANTAR FASCIA: Intact. SINUS TARSI AND TARSAL TUNNEL: Mild attenuation of the sinus tarsi which can be seen in the setting of sinus tarsi syndrome. Patent tarsal tunnel. IMPRESSION: 1. Incomplete fracture through the medial aspect of the distal tibia with prominent adjacent marrow edema. No extension to the articular surface. 2. Mildly displaced, subacute fracture through the distal fibular diametaphysis with prominent surrounding new bone/callus formation and prominent marrow edema. 3. Complete tear of the anterior talofibular ligament with near-complete tears of the calcaneofibular and posterior talofibular ligaments. Grade 1 sprain/partial tear of the deltoid ligament. 4. Fluid within the posterior tibialis, peroneal brevis, and peroneal longus tendon sheaths, which may represent normal variation versus mild tenosynovitis. No transverse tendon tear or tendon retraction. Chronic Achilles tendinosis without a measurable tear. 5. [id number] tibiotalar and posterior subtalar joint effusions. Prominent lateral subcutaneous edema. 6. Attenuation of the sinus tarsi which can be seen in the setting of sinus tarsi syndrome. 11/10/22: CT LUMBAR SPINE WITHOUT CONTRAST FINDINGS: Transitional lumbosacral anatomy with sacralized L5 vertebral body characterized by hypertrophy of the bilateral L5 transverse processes and fusion with the sacrum bilaterally (Castellvi IIIb). For the purposes of this examination the L5-S1 disc space can be seen on image 104, series 4. There is also fusion across the L5-S1 disc space. Normal lumbar lordosis is preserved. Grade 1 anterolisthesis at L3-L4. Vertebral body heights are maintained. There is no suspicious osseous lesion. Severe L4-L5 disc height loss with subchondral sclerosis/cystic change, ventral disc osteophyte and vacuum phenomenon. There is also mild to moderate L1-L2 disc height loss with vacuum phenomenon and mild L3-L4 disc height loss. Please not canal patency is not well assessed on this examination due to inherent limitations of CT without intrathecal contrast. Within these limitations, there is suggestion of congenital spinal canal narrowing with crowding/prominence of the dorsal epidural fat and degenerative changes with level by level detail are as follows: L1-L2: Annular disc bulge with punctate focus of inferiorly extruded air within the left lateral recess, mild bilateral facet hypertrophy and prominence of the dorsal epidural fat. Apparent mild spinal canal and subarticular zone narrowing. Mild bilateral neural foraminal stenosis. L2-L3: Annular disc bulge and mild bilateral facet arthrosis with ligamentum flavum thickening. Prominence of the dorsal epidural fat. Apparent moderate to severe spinal canal and subarticular zone narrowing. Mild to moderate left and mild right neural foraminal stenosis. L3-L4: Posterior disc uncovering/pseudodisc bulge, advanced bilateral facet arthrosis with vacuum phenomenon and partially calcified ligamentum flavum thickening. Severe spinal canal stenosis and subarticular zone narrowing with compression of the thecal sac and traversing bilateral L4 nerve roots. Moderate left and mild right neural foraminal stenosis with mass effect along the exiting/extraforaminal left L4 nerve root and contact along the extraforaminal right L4 nerve root.. L4-L5: Disc osteophyte complex with left lateral recess disc protrusion and right lateral recess disc osteophyte protrusion. Advanced bilateral facet arthrosis. Moderate spinal canal and bilateral subarticular zone narrowing with compression of the traversing bilateral L5 nerve roots. Severe right and moderate to severe left neural foraminal stenosis with compression of the exiting right L4 nerve root and mild mass effect on the exiting left L4 nerve root. L5-S1: No spinal canal or neural foraminal stenosis. There is mild fatty atrophy of the paraspinal musculature. 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 Postsurgical changes of the stomach with associated anastomosis and additional enteric anastomosis in the left hemiabdomen. The abdominal aorta is of normal contour and caliber. Sweet Potato Disintegrator radiographs demonstrate asymmetric left-sided CAM lesion with loss of the normal femoral head-neck offset may predispose to femoro-acetabular impingement and clinical correlation is advised. Degenerative changes at the sacroiliac joints with osseous spurring, subchondral sclerosis and vacuum phenomenon. IMPRESSION: 1. Transitional lumbosacral anatomy (Castellvi IIIb). 2. Advanced multilevel lumbar spondylosis. Severe spinal canal stenosis at L3-L4 and moderate to severe spinal canal and subarticular zone narrowing at L2-L3 and L4-L5. Varying degrees of subarticular zone narrowing, notably with compression of the traversing bilateral L4 and L5 nerve roots at L3-L4 and L4-L5, respectively. Neural foraminal stenosis is most pronounced and severe in the right at L4-L5 with compression of the exiting right L4 nerve root. 3. Sweet Potato Disintegrator radiographs demonstrate asymmetric left-sided CAM lesion with loss of the normal femoral head-neck offset may predispose to femoro-acetabular impingement and clinical correlation is advised. Assessment & Plan Assessment & Plan (1) Swelling of hand joint: Code(s): M25.449 - Effusion, unspecified hand Qualifiers: Laterality: right Qualified Code(s): M25.441 - Effusion, right hand Plan: This is a 62-year-old female who presents for evaluation of bilateral hand pain and swelling, worse on the right, symptoms most severe in the 2nd and 3rd MCP, history of right distal tibia fracture with no memory of any trauma. RT ankle MRI showing multiple tendon tears and tenosynovitis. Brother with IgG4 related disease. Symptoms improving with steroid taper. Labs show mildly elevated CRP, normal ESR and negative serologies. Clinical picture consistent with new onset inflammatory arthritis. Need to start DMARDs. Discussed risks and benefits of methotrexate. Patient agreed to proceed. Start methotrexate 15 mg weekly for 2 weeks, 17.5 mg weekly for 2 weeks then remain on 20 mg weekly Folic acid 1 mg daily Prednisone taper for relief Labs before next visit in 2 months (2) detention methotrexate user: Code(s): Z79.631 - exterminator helper termite (current) use of antimetabolite agent Plan: Monitor safety labs (3) Parathyroid hormone excess: Code(s): E21.3 - Hyperparathyroidism, unspecified Plan: Elevated PTH with normal calcium levels. Advised patient to establish care with fine jewelry sales associate Plan I spent 27 minutes reviewing patient's chart, evaluating patient, ordering diagnostic workup, counseling patient and documenting in the chart Orders: Orders Erythrocyte Sedimentation Rate 2 Months M13.80 - Other specified arthritis, unspecified site, Z79.631 - detention (current) use of antimetabolite agent Complete Blood Count Auto Diff 2 Months M13.80 - Other specified arthritis, unspecified site, Z79.631 - detention (current) use of antimetabolite agent Comprehensive Met. Panel 2 Months M13.80 - Other specified arthritis, unspecified site, Z79.631 - detention (current) use of antimetabolite agent C Reactive Protein 2 Months M13.80 - Other specified arthritis, unspecified site, Z79.631 - exterminator helper termite (current) use of antimetabolite agent Medications: New folic acid 1 mg PO DAILY 90 tabs 0RF methotrexate sodium Take 6 tabs once weekly for 2 weeks, 7 tabs once weekly for 2 weeks then stay on 8 tabs weekly 64 tabs 0RF prednisone Take 4 tabs daily for 1 week, 3 tabs daily for 1 week, 2 tabs daily for 1 week, 1 tab daily for 1 week then stop 70 tabs 0RF Coding Level of Care Code Est Pt Level 4 (49580) Diagnoses Swelling of joint of right hand M25.441 Laterality: right detention methotrexate user Z79.631 Parathyroid hormone excess E21.3
== END 2023-04-19 14:52 | disposition home or self-care (01) ==
PROVIDERS: PCP Physician Assistant Medical; Visit Provider Student in an Organized Health Care Education/Training Program
DX: M25.441 Effusion, right hand (principal); Z79.631 Long term (current) use of antimetabolite agent; E21.3 Hyperparathyroidism, unspecified
CPT/HCPCS: 99214

== ENCOUNTER → 2023-04-19 13:57 | Outpatient (BNVA) | payer OTHER, SELFPAY | PROVIDERS: PCP Physician Assistant Medical; Visit Provider Student in an Organized Health Care Education/Training Program | DX: M25.441 Effusion, right hand (principal); E21.3 Hyperparathyroidism, unspecified; Z79.631 Long term (current) use of antimetabolite agent | CPT/HCPCS: 99212 ==

== ENCOUNTER 2023-06-20 11:18 | Outpatient (REF) | payer OTHER, SELFPAY ==
[2023-06-20 11:49] LABS: MANUAL DIFF FLAG NO
[2023-06-20 12:17] LABS: Basophils Absolute Auto 0.1 X10*3/uL (0.0-0.2); Basophils Percent Auto 0.6 % (0-2); Eosinophils Absolute Auto 0.1 X10*3/uL (0.0-0.4); Hematocrit 43.1 % (37.0-47.0); Hemoglobin 13.8 g/dl (12.0-16.0); Imm Gran Abs Auto 0.03 X10*3/uL (0.00-0.03); Imm Gran Pct Auto 0.3 % (0.0-0.4); Lymphocytes Absolute Auto 1.1 X10*3/uL (1.2-4.9); Lymphocytes Percent Auto 12.1 % (20-40); Mean Corpuscular Hemoglobin 28.2 pg (27.0-33.0); Mean Corpuscular Volume 88.1 fL (80.0-98.0); Mean Platelet Volume 10.6 fL (9.4-12.3); Monocytes Absolute Auto 0.4 X10*3/uL (0.1-1.2); Monocytes Percent Auto 4.4 % (2-11); Neutrophils Absolute Auto 7.2 x10*3/uL (2.0-8.3); Neutrophils Percent Auto 81.6 % (45-73); Platelet Count 273 X10*3/uL (160-400); Red Blood Count 4.89 X10*6/uL (4.20-5.50); Red Cell Distribution Width 15.8 % (11.0-16.0); White Blood Count 8.9 X10*3/uL (4.8-10.8)
[2023-06-20 12:39] LABS: Alanine Aminotransferase 18 U/L (0-31); Albumin Level 3.8 g/dL (3.5-5.0); Alkaline Phosphatase 86 U/L (39-117); Anion Gap 13 (12-20); Aspartate Amino Transferase 18 U/L (5-31); Bilirubin Total 0.4 mg/dL (0.0-1.0); Blood Urea Nitrogen 18 mg/dL (9-16); C Reactive Protein 1.13 mg/dL (< or = 0.50); Calcium 9.2 mg/dL (8.4-10.2); Carbon Dioxide 23 mmol/L (22-29); Chloride 111 mmol/L (96-108); Estimated Glomerular Filt Rate > 60; Glucose Random 139 mg/dL (60-115); Potassium 4.4 mmol/L (3.3-5.1); Sodium 143 mmol/L (135-145); Total Protein 6.8 g/dL (6.5-8.0)
[2023-06-20 13:00] LABS: Erythrocyte Sedimentation Rate 6 MM/HR (0-20)
== END 2023-06-20 11:19 | disposition home or self-care (01) ==
LOC: HO.LAB 11:18
PROVIDERS: PCP Physician Assistant Medical; Visit Provider Student in an Organized Health Care Education/Training Program
DX: M13.80 Other specified arthritis, unspecified site (principal); Z79.631 Long term (current) use of antimetabolite agent
CPT/HCPCS: 36415; 80053; 85025; 85652; 86140

== ENCOUNTER 2023-06-21 09:49 | Outpatient (AMB) | payer OTHER, SELFPAY ==
--- NOTE | 2023-06-21 09:56 | MHC.OFFVIS ---
Vital Signs 06/21/23 10:03 Height 5 ft 5 in Weight 271 lb 2.697 oz BMI 45.1 BP 116/72 Blood Pressure Location Rt brachial Position Sitting Pulse 83 Pulse Source Pulse Oximeter Pulse Oximetry (%) 95 Oxygen Delivery Method Room Air Intake Visit Reasons: RA Intake Note: Patient last seen 04/19/23 presents today for follow up and test results. 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 Allergies Penicillins Allergy (Severe, Verified 06/21/23 10:03) Anaphylaxis omeprazole [From Prilosec] Adverse Reaction (Severe, Verified 06/21/23 10:03) Rash pregabalin [From Lyrica] Adverse Reaction (Severe, Verified 06/21/23 10:03) fluid gain Medication List - Last Reconciled 06/21/23 by Torie Eduardo MD albuterol sulfate 90 mcg/actuation inhalation aspirin (Adult Aspirin Regimen) 81 mg PO DAILY buprenorphine 15 mcg/hour 1 patch topical QWEEK celecoxib (Celebrex) 200 mg PO BID cholecalciferol (vitamin D3) (Vitamin D3) 125 mcg PO DAILY ciclopirox 0.77% topical cyanocobalamin (vitamin B-12) mcg IM cyclobenzaprine 5 mg PO TID PRN empagliflozin (Jardiance) 10 mg PO DAILY epinephrine (EpiPen) 0.3 mg IM Q4H PRN flecainide mg PO DAILY fluticasone furoate-vilanterol 100-25 mcg/dose (Breo Ellipta) inhalation gabapentin 1 morning 2 at lunch, 1 late afternoon , 2 bedtime orally 4 times a day; glimepiride 2 mg PO DAILY PRN isosorbide mononitrate ER 15 mg PO QAM lifitegrast 5% (Xiidra) drps ophthalmic (eye) loperamide mg PO losartan 25 mg PO DAILY loteprednol etabonate 0.5% (Lotemax) ophthalmic (eye) metoprolol succinate ER 25 mg PO DAILY nitroglycerin 0.4 mg sublingual Q5M PRN ondansetron HCl 4 mg PO Q8H oxybutynin chloride ER 15 mg PO DAILY pantoprazole 40 mg PO BID pravastatin 10 mg PO BEDTIME prednisone 10 mg (2 x 5 mg) PO DAILY rizatriptan (Maxalt) take 1 tab at onset of headache; if no relief may repeat 1 tab after at least 2 hrs; max = 3 tabs/24 hr PO ropinirole 3 mg PO BEDTIME semaglutide (Ozempic) mg subcut tizanidine 2 mg PO BEDTIME torsemide mg PO tramadol 50 mg PO BID PRN trazodone 50 - 100 mg PO BEDTIME venlafaxine ER 150 mg PO DAILY vibegron (Gemtesa) 75 mg PO DAILY HPI Comments Details: 63-year-old female with seronegative RA returns for follow-up. She took methotrexate for approximately 1 month and could not tolerate it due to persistent GI upset and nausea. It was discontinued 3-4 weeks ago and we restarted prednisone. She is taking prednisone 10 mg daily and it gives her about 20% relief. Continues to have pain and swelling in her wrists and knuckles. Initial history: This is a 62-year-old female who presents for evaluation of bilateral hand pain and swelling. She stated that she used to follow-up with Dr. Gr years ago and was diagnosed with fibromyalgia. She states that for the last 2 and half years she has been having bilateral hand pain and swelling, worse on the right, usually involves the 2nd and 3rd MCP and is now starting to involve the 4th and 5th MCPs. Symptoms not improved with NSAIDs, 2 weeks ago patient was having left hip pain, she took a prednisone prescription that was left over from a prescription for bronchitis last year. The prednisone helped her hip and improved the pain and swelling of her hands. She was also having significant right ankle pain. She was recently evaluated by Pain Management for a spinal cord stimulator right ankle MRI was ordered which showed right distal tibia fracture as well as multiple ligament tears as well as possible tenosynovitis. She was evaluated by a foot and ankle surgeon and no specific treatment was recommended. States that her brother was diagnosed with my Miculikz ds (IgG4 related ds) and follows up in [place]. She denies any history of DVT/PE [facility] Medical History (Updated 06/21/23 @ 10:30 by Torie Eduardo MD) Hiatal hernia Diffuse spasm of esophagus Obstructive sleep apnea syndrome Osteoporosis Hyperlipidemia Family history of breast cancer Migraine Vitamin D deficiency Restless legs Salomon esophagus Morbid obesity Fibromyalgia Insomnia Cobalamin deficiency Spinal stenosis of lumbar region Lumbar radiculopathy Overactive bladder Chronic kidney disease, stage 3a Pain in left foot Allergy to penicillin ROQUE (dyspnea on exertion) Sensory ataxia Peripheral venous insufficiency Thrombophlebitis of superficial veins of both lower extremities Heart failure with normal ejection fraction Paroxysmal supraventricular tachycardia Coronary atherosclerosis Prinzmetal angina Hypertensive renal disease Anisocoria Chronic pain syndrome Anxiety Major depressive disorder Iron deficiency anemia Surgical History History of total right knee replacement H/O gastric bypass Lumbar post-laminectomy syndrome Family History Mother Hypertension Father Non-Hodgkin lymphoma Hypertension Diabetes Brother Mikulicz syndrome Review of Systems [facility] [place] Reports arthralgias, Reports joint swelling and Reports stiffness Skin/Breast Denies rash Physical Exam Vital Signs: Last Vital Signs Pulse 83 06/21/23 10:03 BP 116/72 06/21/23 10:03 Pulse Ox 95 06/21/23 10:03 Oxygen Delivery Method Room Air 06/21/23 10:03 BMI result Body Mass Index 45.1 Const General: cooperative, healthy appearing and comfortable Nutritional Appearance: obese morbidly obese Orientation/consciousness: patient oriented x3 Limitations: ambulation with cane HEENT Head: Yes normocephalic and Yes atraumatic Mouth: moist mucous membranes Resp Effort & Inspection: normal respiratory effort and able to speak in complete sentences Skin General skin exam: no rashes or lesions noted Neuro General: patient oriented x3 Extrem Other: Right wrist swelling and tenderness, pain with full flexion Left wrist tenderness and pain with full flexion Right 2nd and 3rd MCP tenderness and mild puffiness Few tender PIPs right hand Left 2nd, 3rd MCP swelling Left 2nd 3rd 4th and 5th MCP tenderness Left 2nd and 3rd PIP tenderness Normal nailfold capillaroscopy Results Reviewed Results Reviewed: 11/17/22: MR ANKLE WITHOUT CONTRAST, RIGHT FINDINGS: BONE AND ARTICULAR CARTILAGE: Irregular linear low T1/low T2 signal through the medial aspect of the distal tibia contacting the medial, anterior, and posterior cortices. Prominent adjacent marrow edema. Findings are consistent with an incomplete fracture. No extension to the articular surface. Mildly displaced, oblique fracture through the distal fibular diametaphysis with cortical step off measuring up to 0.3 cm anteriorly. Surrounding new bone/callus formation with prominent marrow edema, consistent with a subacute fracture. The ankle mortise is maintained. No talar osteochondral lesion. No concerning lytic or blastic osseous lesion. Degenerative cystic change at the angle of [place]. Prominent plantar calcaneal spur. ACHILLES TENDON: Thickening of the distal Achilles tendon consistent with chronic tendinosis. No measurable tear. OTHER TENDONS: Fluid within the posterior tibialis, peroneal brevis, and peroneal longus tendon sheaths, which may represent normal variation versus mild tenosynovitis. Diffuse thickening and increased T2 signal of the tendon insertion, consistent with tendinosis. No transverse tendon tear or tendon retraction. LIGAMENTS: Complete absence of the anterior talofibular ligament consistent with a complete ligament tear. Near-complete full-thickness tear of the calcaneofibular and posterior talofibular ligaments. Grade 1 sprain/partial tear of the deltoid ligament. JOINT FLUID AND SOFT TISSUES: [id number] tibiotalar and posterior subtalar joint effusions. Prominent lateral subcutaneous edema. No soft tissue mass or fluid collection. PLANTAR FASCIA: Intact. SINUS TARSI AND TARSAL TUNNEL: Mild attenuation of the sinus tarsi which can be seen in the setting of sinus tarsi syndrome. Patent tarsal tunnel. IMPRESSION: 1. Incomplete fracture through the medial aspect of the distal tibia with prominent adjacent marrow edema. No extension to the articular surface. 2. Mildly displaced, subacute fracture through the distal fibular diametaphysis with prominent surrounding new bone/callus formation and prominent marrow edema. 3. Complete tear of the anterior talofibular ligament with near-complete tears of the calcaneofibular and posterior talofibular ligaments. Grade 1 sprain/partial tear of the deltoid ligament. 4. Fluid within the posterior tibialis, peroneal brevis, and peroneal longus tendon sheaths, which may represent normal variation versus mild tenosynovitis. No transverse tendon tear or tendon retraction. Chronic Achilles tendinosis without a measurable tear. 5. [id number] tibiotalar and posterior subtalar joint effusions. Prominent lateral subcutaneous edema. 6. Attenuation of the sinus tarsi which can be seen in the setting of sinus tarsi syndrome. 11/10/22: CT LUMBAR SPINE WITHOUT CONTRAST FINDINGS: Transitional lumbosacral anatomy with sacralized L5 vertebral body characterized by hypertrophy of the bilateral L5 transverse processes and fusion with the sacrum bilaterally (Castellvi IIIb). For the purposes of this examination the L5-S1 disc space can be seen on image 104, series 4. There is also fusion across the L5-S1 disc space. Normal lumbar lordosis is preserved. Grade 1 anterolisthesis at L3-L4. Vertebral body heights are maintained. There is no suspicious osseous lesion. Severe L4-L5 disc height loss with subchondral sclerosis/cystic change, ventral disc osteophyte and vacuum phenomenon. There is also mild to moderate L1-L2 disc height loss with vacuum phenomenon and mild L3-L4 disc height loss. Please not canal patency is not well assessed on this examination due to inherent limitations of CT without intrathecal contrast. Within these limitations, there is suggestion of congenital spinal canal narrowing with crowding/prominence of the dorsal epidural fat and degenerative changes with level by level detail are as follows: L1-L2: Annular disc bulge with punctate focus of inferiorly extruded air within the left lateral recess, mild bilateral facet hypertrophy and prominence of the dorsal epidural fat. Apparent mild spinal canal and subarticular zone narrowing. Mild bilateral neural foraminal stenosis. L2-L3: Annular disc bulge and mild bilateral facet arthrosis with ligamentum flavum thickening. Prominence of the dorsal epidural fat. Apparent moderate to severe spinal canal and subarticular zone narrowing. Mild to moderate left and mild right neural foraminal stenosis. L3-L4: Posterior disc uncovering/pseudodisc bulge, advanced bilateral facet arthrosis with vacuum phenomenon and partially calcified ligamentum flavum thickening. Severe spinal canal stenosis and subarticular zone narrowing with compression of the thecal sac and traversing bilateral L4 nerve roots. Moderate left and mild right neural foraminal stenosis with mass effect along the exiting/extraforaminal left L4 nerve root and contact along the extraforaminal right L4 nerve root.. L4-L5: Disc osteophyte complex with left lateral recess disc protrusion and right lateral recess disc osteophyte protrusion. Advanced bilateral facet arthrosis. Moderate spinal canal and bilateral subarticular zone narrowing with compression of the traversing bilateral L5 nerve roots. Severe right and moderate to severe left neural foraminal stenosis with compression of the exiting right L4 nerve root and mild mass effect on the exiting left L4 nerve root. L5-S1: No spinal canal or neural foraminal stenosis. There is mild fatty atrophy of the paraspinal musculature. 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 Postsurgical changes of the stomach with associated anastomosis and additional enteric anastomosis in the left hemiabdomen. The abdominal aorta is of normal contour and caliber. [employer] Dispatcher radiographs demonstrate asymmetric left-sided CAM lesion with loss of the normal femoral head-neck offset may predispose to femoro-acetabular impingement and clinical correlation is advised. Degenerative changes at the sacroiliac joints with osseous spurring, subchondral sclerosis and vacuum phenomenon. IMPRESSION: 1. Transitional lumbosacral anatomy (Castellvi IIIb). 2. Advanced multilevel lumbar spondylosis. Severe spinal canal stenosis at L3-L4 and moderate to severe spinal canal and subarticular zone narrowing at L2-L3 and L4-L5. Varying degrees of subarticular zone narrowing, notably with compression of the traversing bilateral L4 and L5 nerve roots at L3-L4 and L4-L5, respectively. Neural foraminal stenosis is most pronounced and severe in the right at L4-L5 with compression of the exiting right L4 nerve root. 3. [employer] Dispatcher radiographs demonstrate asymmetric left-sided CAM lesion with loss of the normal femoral head-neck offset may predispose to femoro-acetabular impingement and clinical correlation is advised. Assessment & Plan Assessment & Plan (1) Seronegative rheumatoid arthritis: Comment: -ve RF -ve CCP MTX 04/2023 DC 05/2023 due to nausea & GI upset Code(s): M06.00 - Rheumatoid arthritis without rheumatoid factor, unspecified site Category: Medical Plan: This is a 63-year-old female who presents for evaluation of bilateral hand pain and swelling, worse on the right, symptoms most severe in the 2nd and 3rd MCP, history of right distal tibia fracture with no memory of any trauma.? RT ankle MRI showing multiple tendon tears and tenosynovitis.? Brother with IgG4 related disease.? Symptoms improving with steroid taper. Labs show mildly elevated CRP, normal ESR and negative serologies.? Clinical picture consistent with new onset seronegative rheumatoid arthritis. We started methotrexate last visit, patient took it for approximately 1 month but could not tolerate it due to significant nausea and GI upset Will need to switch DMARDs. Discussed risks and benefits of TNF inhibitors. Patient agreed to proceed. Will start prior authorization for Enbrel. Continue prednisone 10 mg daily for 4 weeks, 5 mg daily for 4 weeks then stop Labs before next visit in 3 months (2) High risk medication use: Code(s): Z79.899 - Other halfway (current) drug therapy Category: Medical Plan: Side effects of Enbrel were discussed with the patient in detail including increased risk of infection, demyelinating disease, reactivation of latent TB, possible increased risk of solid and skin tumors. Patient fully aware. Advised patient to seek medical care [facility] if patient has an infection and advised patient to stop the medication until the infection is resolved. Plan I spent 27 minutes reviewing patient's chart, evaluating patient, ordering diagnostic workup, counseling patient and documenting in the chart Orders: Orders Erythrocyte Sedimentation Rate 3 Months M13.80 - Other specified arthritis, unspecified site Complete Blood Count Auto Diff 3 Months M13.80 - Other specified arthritis, unspecified site Comprehensive Met. Panel 3 Months M13.80 - Other specified arthritis, unspecified site C Reactive Protein 3 Months M13.80 - Other specified arthritis, unspecified site Medications: Changed From prednisone 10 mg (2 x 5 mg) PO DAILY 60 tabs 0RF To prednisone Take 2 tabs daily for 4 weeks then 1 tab daily for 4 weeks then stop 90 tabs 0RF Coding Level of Care Code Est Pt Level 4 (65557) Diagnoses Seronegative rheumatoid arthritis M06.00 High risk medication use Z79.899
[2023-06-21 10:03] VITALS: BP 116/72; PULSE 83; O2SAT 95; BMI 45.1
== END 2023-06-21 10:25 | disposition home or self-care (01) ==
PROVIDERS: PCP Physician Assistant Medical; Visit Provider Student in an Organized Health Care Education/Training Program
DX: M06.00 Rheumatoid arthritis without rheumatoid factor, unspecified site (principal); Z79.899 Other long term (current) drug therapy
CPT/HCPCS: 99214

== ENCOUNTER → 2023-06-21 09:49 | Outpatient (BNVA) | payer OTHER, SELFPAY | PROVIDERS: PCP Physician Assistant Medical; Visit Provider Student in an Organized Health Care Education/Training Program | DX: M06.00 Rheumatoid arthritis without rheumatoid factor, unspecified site (principal) | CPT/HCPCS: 99212 ==

== ENCOUNTER 2023-09-13 10:14 | Outpatient (AMB) | payer OTHER, SELFPAY ==
--- NOTE | 2023-09-13 10:17 | A.OFFVIS_ITS ---
Vital Signs 09/13/23 10:21 Height 5 ft 5 in Weight 255 lb 8.252 oz BMI 42.5 BP 116/68 Blood Pressure Location Rt brachial Position Sitting Pulse 93 Pulse Source Pulse Oximeter Pulse Oximetry (%) 94 Oxygen Delivery Method Room Air Intake Visit Reasons: RA/cm Intake Note: Patient presents for RA. Allergies Penicillins Allergy (Severe, Verified 09/13/23 10:20) Anaphylaxis omeprazole [From Prilosec] Adverse Reaction (Severe, Verified 09/13/23 10:20) Rash pregabalin [From Lyrica] Adverse Reaction (Severe, Verified 09/13/23 10:20) fluid gain Medication List - Last Reconciled 09/13/23 by Torie Eduardo MD albuterol sulfate 90 mcg/actuation inhalation aspirin (Adult Aspirin Regimen) 81 mg PO DAILY buprenorphine 15 mcg/hour 1 patch topical QWEEK celecoxib (Celebrex) 200 mg PO BID cholecalciferol (vitamin D3) (Vitamin D3) 125 mcg PO DAILY ciclopirox 0.77% topical cyanocobalamin (vitamin B-12) mcg IM cyclobenzaprine 5 mg PO TID PRN empagliflozin (Jardiance) 10 mg PO DAILY Enbrel SureClick (etanercept) 50 mg subcut QWEEK NS epinephrine (EpiPen) 0.3 mg IM Q4H PRN flecainide mg PO DAILY fluticasone furoate-vilanterol 100-25 mcg/dose (Breo Ellipta) inhalation gabapentin 300 mg PO BID glimepiride 2 mg PO DAILY PRN isosorbide mononitrate ER 15 mg PO QAM lifitegrast 5% (Xiidra) drps ophthalmic (eye) loperamide mg PO losartan 25 mg PO DAILY loteprednol etabonate 0.5% (Lotemax) ophthalmic (eye) metoprolol succinate ER 25 mg PO DAILY nitroglycerin 0.4 mg sublingual Q5M PRN ondansetron HCl 4 mg PO Q8H oxybutynin chloride ER 15 mg PO DAILY pantoprazole 40 mg PO BID pravastatin 10 mg PO BEDTIME rizatriptan (Maxalt) take 1 tab at onset of headache; if no relief may repeat 1 tab after at least 2 hrs; max = 3 tabs/24 hr PO ropinirole 3 mg PO BEDTIME semaglutide (Ozempic) mg subcut tizanidine 2 mg PO BEDTIME torsemide mg PO tramadol 50 mg PO BID PRN trazodone 50 - 100 mg PO BEDTIME venlafaxine ER 150 mg PO DAILY vibegron (Gemtesa) 75 mg PO DAILY HPI Comments Details: 63-year-old female with seronegative RA returns for follow-up. Has been taking Enbrel regularly for more than 2 months now. Denies any side effects. Pain and swelling of her knuckles significantly improved. Been using a new right ankle brace and it does help. She has been using Ozempic and she has lost 25 lb, she was also started on a nasal CPAP with improvement of her sleep. She is starting to use last gabapentin, she is down to 300 mg Twice daily. Overall doing much better Initial history: This is a 62-year-old female who presents for evaluation of bilateral hand pain and swelling. She stated that she used to follow-up with Dr. Gr years ago and was diagnosed with fibromyalgia. She states that for the last 2 and half years she has been having bilateral hand pain and swelling, worse on the right, usually involves the 2nd and 3rd MCP and is now starting to involve the 4th and 5th MCPs. Symptoms not improved with NSAIDs, 2 weeks ago patient was having left hip pain, she took a prednisone prescription that was left over from a prescription for bronchitis last year. The prednisone helped her hip and improved the pain and swelling of her hands. She was also having significant right ankle pain. She was recently evaluated by Pain Management for a spinal cord stimulator right ankle MRI was ordered which showed right distal tibia fracture as well as multiple ligament tears as well as possible tenosynovitis. She was evaluated by a foot and ankle surgeon and no specific treatment was recommended. States that her brother was diagnosed with my Miculikz ds (IgG4 related ds) and follows up in [place]. She denies any history of DVT/PE [facility] Medical History Hiatal hernia Diffuse spasm of esophagus Obstructive sleep apnea syndrome Osteoporosis Hyperlipidemia Family history of breast cancer Migraine Vitamin D deficiency Restless legs Saloomn esophagus Morbid obesity Fibromyalgia Insomnia Cobalamin deficiency Spinal stenosis of lumbar region Lumbar radiculopathy Overactive bladder Chronic kidney disease, stage 3a Pain in left foot Allergy to penicillin ROQUE (dyspnea on exertion) Sensory ataxia Peripheral venous insufficiency Thrombophlebitis of superficial veins of both lower extremities Heart failure with normal ejection fraction Paroxysmal supraventricular tachycardia Coronary atherosclerosis Prinzmetal angina Hypertensive renal disease Anisocoria Chronic pain syndrome Anxiety Major depressive disorder Iron deficiency anemia Surgical History History of total right knee replacement H/O gastric bypass Lumbar post-laminectomy syndrome Family History Mother Hypertension Father Non-Hodgkin lymphoma Hypertension Diabetes Brother Mikulicz syndrome Female Reproductive History Menstrual Total pregnancies: 0 Review of Systems Musc Reports arthralgias, Denies joint swelling and Denies stiffness Skin/Breast Denies rash Physical Exam Vital Signs: Last Vital Signs Pulse 93 09/13/23 10:21 BP 116/68 09/13/23 10:21 Pulse Ox 94 09/13/23 10:21 Oxygen Delivery Method Room Air 09/13/23 10:21 BMI result Body Mass Index 42.5 Const General: cooperative, healthy appearing and comfortable Nutritional Appearance: obese morbidly obese Orientation/consciousness: patient oriented x3 Limitations: ambulation with cane HEENT Head: Yes normocephalic and Yes atraumatic Mouth: moist mucous membranes Resp Effort & Inspection: normal respiratory effort and able to speak in complete sentences Skin General skin exam: no rashes or lesions noted Neuro General: patient oriented x3 Extrem Other: Bilateral wrist tenderness but no swelling Mild puffiness of right 2nd and 3rd MCPs with no significant tenderness Puffiness of left 2nd and 3rd MCPs but no significant tenderness No PIP swelling or tenderness bilaterally No elbow pain with full flexion-extension Normal range of motion of shoulders without pain Left knee crepitus and pain with flexion Right ankle tenderness medially Left ankle tenderness without much swelling Few tender PIPs right hand Normal nailfold capillaroscopy Results Reviewed Results Reviewed: 11/17/22: MR ANKLE WITHOUT CONTRAST, RIGHT FINDINGS: BONE AND ARTICULAR CARTILAGE: Irregular linear low T1/low T2 signal through the medial aspect of the distal tibia contacting the medial, anterior, and posterior cortices. Prominent adjacent marrow edema. Findings are consistent with an incomplete fracture. No extension to the articular surface. Mildly displaced, oblique fracture through the distal fibular diametaphysis with cortical step off measuring up to 0.3 cm anteriorly. Surrounding new bone/callus formation with prominent marrow edema, consistent with a subacute fracture. The ankle mortise is maintained. No talar osteochondral lesion. No concerning lytic or blastic osseous lesion. Degenerative cystic change at the angle of [place]iss[place]. Prominent plantar calcaneal spur. ACHILLES TENDON: Thickening of the distal Achilles tendon consistent with chronic tendinosis. No measurable tear. OTHER TENDONS: Fluid within the posterior tibialis, peroneal brevis, and peroneal longus tendon sheaths, which may represent normal variation versus mild tenosynovitis. Diffuse thickening and increased T2 signal of the tendon insertion, consistent with tendinosis. No transverse tendon tear or tendon retraction. LIGAMENTS: Complete absence of the anterior talofibular ligament consistent with a complete ligament tear. Near-complete full-thickness tear of the calcaneofibular and posterior talofibular ligaments. Grade 1 sprain/partial tear of the deltoid ligament. JOINT FLUID AND SOFT TISSUES: [id number] tibiotalar and posterior subtalar joint effusions. Prominent lateral subcutaneous edema. No soft tissue mass or fluid collection. PLANTAR FASCIA: Intact. SINUS TARSI AND TARSAL TUNNEL: Mild attenuation of the sinus tarsi which can be seen in the setting of sinus tarsi syndrome. Patent tarsal tunnel. IMPRESSION: 1. Incomplete fracture through the medial aspect of the distal tibia with prominent adjacent marrow edema. No extension to the articular surface. 2. Mildly displaced, subacute fracture through the distal fibular diametaphysis with prominent surrounding new bone/callus formation and prominent marrow edema. 3. Complete tear of the anterior talofibular ligament with near-complete tears of the calcaneofibular and posterior talofibular ligaments. Grade 1 sprain/partial tear of the deltoid ligament. 4. Fluid within the posterior tibialis, peroneal brevis, and peroneal longus tendon sheaths, which may represent normal variation versus mild tenosynovitis. No transverse tendon tear or tendon retraction. Chronic Achilles tendinosis without a measurable tear. 5. [id number] tibiotalar and posterior subtalar joint effusions. Prominent lateral subcutaneous edema. 6. Attenuation of the sinus tarsi which can be seen in the setting of sinus tar si syndrome. 11/10/22: CT LUMBAR SPINE WITHOUT CONTRAST FINDINGS: Transitional lumbosacral anatomy with sacralized L5 vertebral body characterized by hypertrophy of the bilateral L5 transverse processes and fusion with the sacrum bilaterally (Castellvi IIIb). For the purposes of this examination the L5-S1 disc space can be seen on image 104, series 4. There is also fusion across the L5-S1 disc space. Normal lumbar lordosis is preserved. Grade 1 anterolisthesis at L3-L4. Vertebral body heights are maintained. There is no suspicious osseous lesion. Severe L4-L5 disc height loss with subchondral sclerosis/cystic change, ventral disc osteophyte and vacuum phenomenon. There is also mild to moderate L1-L2 disc height loss with vacuum phenomenon and mild L3-L4 disc height loss. Please not canal patency is not well assessed on this examination due to inherent limitations of CT without intrathecal contrast. Within these limitations, there is suggestion of congenital spinal canal narrowing with crowding/prominence of the dorsal epidural fat and degenerative changes with level by level detail are as follows: L1-L2: Annular disc bulge with punctate focus of inferiorly extruded air within the left lateral recess, mild bilateral facet hypertrophy and prominence of the dorsal epidural fat. Apparent mild spinal canal and subarticular zone narrowing. Mild bilateral neural foraminal stenosis. L2-L3: Annular disc bulge and mild bilateral facet arthrosis with ligamentum flavum thickening. Prominence of the dorsal epidural fat. Apparent moderate to severe spinal canal and subarticular zone narrowing. Mild to moderate left and mild right neural foraminal stenosis. L3-L4: Posterior disc uncovering/pseudodisc bulge, advanced bilateral facet arthrosis with vacuum phenomenon and partially calcified ligamentum flavum thickening. Severe spinal canal stenosis and subarticular zone narrowing with compression of the thecal sac and traversing bilateral L4 nerve roots. Moderate left and mild right neural foraminal stenosis with mass effect along the exiting/extraforaminal left L4 nerve root and contact along the extraforaminal right L4 nerve root.. L4-L5: Disc osteophyte complex with left lateral recess disc protrusion and right lateral recess disc osteophyte protrusion. Advanced bilateral facet arthrosis. Moderate spinal canal and bilateral subarticular zone narrowing with compression of the traversing bilateral L5 nerve roots. Severe right and moderate to severe left neural foraminal stenosis with compression of the exiting right L4 nerve root and mild mass effect on the exiting left L4 nerve root. L5-S1: No spinal canal or neural foraminal stenosis. There is mild fatty atrophy of the paraspinal musculature. 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 Postsurgical changes of the stomach with associated anastomosis and additional enteric anastomosis in the left hemiabdomen. The abdominal aorta is of normal contour and caliber. [facility] radiographs demonstrate asymmetric left-sided CAM lesion with loss of the normal femoral head-neck offset may predispose to femoro-acetabular impingement and clinical correlation is advised. Degenerative changes at the sacroiliac joints with osseous spurring, subchondral sclerosis and vacuum phenomenon. IMPRESSION: 1. Transitional lumbosacral anatomy (Castellvi IIIb). 2. Advanced multilevel lumbar spondylosis. Severe spinal canal stenosis at L3- L4 and moderate to severe spinal canal and subarticular zone narrowing at L2-L3 and L4-L5. Varying degrees of subarticular zone narrowing, notably with compression of the traversing bilateral L4 and L5 nerve roots at L3-L4 and L4- L5, respectively. Neural foraminal stenosis is most pronounced and severe in the right at L4-L5 with compression of the exiting right L4 nerve root. 3. [facility] radiographs demonstrate asymmetric left-sided CAM lesion with loss of the normal femoral head-neck offset may predispose to femoro-acetabular impingement and clinical correlation is advised. Assessment & Plan Assessment & Plan (1) Seronegative rheumatoid arthritis: Comment: -ve RF -ve CCP (initial eval : bilateral hand pain and swelling, worse on the right, symptoms most severe in the 2nd and 3rd MCP, history of right distal tibia fracture with no memory of any trauma.? RT ankle MRI showing multiple tendon tears and tenosynovitis) MTX 04/2023 DC 05/2023 due to nausea & GI upset Enbrel 06/2023 effective Code(s): M06.00 - Rheumatoid arthritis without rheumatoid factor, unspecified site Category: Medical Plan: This is a 63-year-old female with seronegative RA who presents for follow-up. Doing much better overall on Enbrel 50 mg weekly. Joints much less swollen and tender Continue Enbrel 50 mg weekly Labs before next visit in 4 months (2) High risk medication use: Code(s): Z79.899 - Other group home (current) drug therapy Category: Medical Plan: Side effects of Enbrel were discussed with the patient in detail including increased risk of infection, demyelinating disease, reactivation of latent TB, possible increased risk of solid and skin tumors. Patient fully aware. Advised patient to seek medical care [facility] if patient has an infection and advised patient to stop the medication until the infection is resolved. Plan I spent 27 minutes reviewing patient's chart, evaluating patient, ordering diagnostic workup, counseling patient and documenting in the chart Orders: Orders Complete Blood Count Auto Diff 4 Months M06.00 - Rheumatoid arthritis without rheumatoid factor, unspecified site Erythrocyte Sedimentation Rate 4 Months M06.00 - Rheumatoid arthritis without rheumatoid factor, unspecified site Comprehensive Met. Panel 4 Months M06.00 - Rheumatoid arthritis without rheumatoid factor, unspecified site C Reactive Protein 4 Months M06.00 - Rheumatoid arthritis without rheumatoid factor, unspecified site Coding Level of Care Code Est Pt Level 4 (85330) Diagnoses Seronegative rheumatoid arthritis M06.00 High risk medication use Z79.899
[2023-09-13 10:21] VITALS: BP 116/68; PULSE 93; O2SAT 94; BMI 42.5
== END 2023-09-13 10:45 | disposition home or self-care (01) ==
PROVIDERS: PCP Physician Assistant Medical; Visit Provider Student in an Organized Health Care Education/Training Program
DX: M06.00 Rheumatoid arthritis without rheumatoid factor, unspecified site (principal); Z79.899 Other long term (current) drug therapy
CPT/HCPCS: 99214

== ENCOUNTER → 2023-09-13 10:14 | Outpatient (BNVA) | payer OTHER, SELFPAY | PROVIDERS: PCP Physician Assistant Medical; Visit Provider Student in an Organized Health Care Education/Training Program | DX: M06.00 Rheumatoid arthritis without rheumatoid factor, unspecified site (principal); Z79.899 Other long term (current) drug therapy | CPT/HCPCS: 99212 ==

== ENCOUNTER 2024-05-01 15:10 | Outpatient (REF) | payer OTHER, SELFPAY ==
[2024-05-01 15:26] LABS: MANUAL DIFF FLAG NO
[2024-05-01 17:11] LABS: Basophils Absolute Auto 0.1 X10*3/uL (0.0-0.2); Basophils Percent Auto 0.7 % (0-2); Eosinophils Absolute Auto 0.2 X10*3/uL (0.0-0.4); Eosinophils Percent Auto 2.3 % (0-4); Hematocrit 43.8 % (37.0-47.0); Hemoglobin 14.3 g/dl (12.0-16.0); Imm Gran Abs Auto 0.02 X10*3/uL (0.00-0.03); Imm Gran Pct Auto 0.2 % (0.0-0.4); Lymphocytes Absolute Auto 1.4 X10*3/uL (1.2-4.9); Lymphocytes Percent Auto 17.7 % (20-40); Mean Corpuscular HGB Conc 32.6 g/dl (31.0-35.0); Mean Corpuscular Hemoglobin 28.2 pg (27.0-33.0); Mean Corpuscular Volume 86.4 fL (80.0-98.0); Mean Platelet Volume 10.6 fL (9.4-12.3); Monocytes Absolute Auto 0.4 X10*3/uL (0.1-1.2); Monocytes Percent Auto 4.8 % (2-11); Neutrophils Percent Auto 74.3 % (45-73); Platelet Count 268 X10*3/uL (160-400); Red Blood Count 5.07 X10*6/uL (4.20-5.50); Red Cell Distribution Width 14.6 % (11.0-16.0); White Blood Count 8.1 X10*3/uL (4.8-10.8)
[2024-05-01 17:35] LABS: Alanine Aminotransferase 15 U/L (0-31); Albumin Level 4.2 g/dL (3.5-5.0); Alkaline Phosphatase 87 U/L (39-117); Anion Gap 10 (12-20); Aspartate Amino Transferase 22 U/L (5-31); Bilirubin Total 0.6 mg/dL (0.0-1.0); Blood Urea Nitrogen 16 mg/dL (9-16); C Reactive Protein 0.28 mg/dL (< or = 0.50); Calcium 9.2 mg/dL (8.4-10.2); Carbon Dioxide 27 mmol/L (22-29); Chloride 110 mmol/L (96-108); Estimated Glomerular Filt Rate > 60; Glucose Random 82 mg/dL (60-115); Potassium 4.3 mmol/L (3.3-5.1); Sodium 143 mmol/L (135-145)
[2024-05-01 18:14] LABS: Erythrocyte Sedimentation Rate 5 MM/HR (0-20)
== END 2024-05-01 15:11 | disposition home or self-care (01) ==
LOC: HO.LAB 15:10
PROVIDERS: PCP Physician Assistant Medical; Visit Provider Student in an Organized Health Care Education/Training Program
DX: M06.00 Rheumatoid arthritis without rheumatoid factor, unspecified site (principal); M13.80 Other specified arthritis, unspecified site
CPT/HCPCS: 36415; 80053; 85025; 85652; 86140

== ENCOUNTER 2024-07-10 13:50 | Outpatient (AMB) | payer OTHER, SELFPAY ==
[2024-07-10 13:52] VITALS: BP 124/70; PULSE 72; O2SAT 93; BMI 33.9
--- NOTE | 2024-07-10 13:52 | MHC.OFFVIS ---
Vital Signs 07/10/24 13:52 Height 5 ft 5 in Weight 203 lb 7.787 oz BMI 33.9 BP 124/70 Blood Pressure Location Lt brachial Position Sitting Pulse 72 Pulse Source Pulse Oximeter Pulse Oximetry (%) 93 Oxygen Delivery Method Room Air Intake Visit Reasons: RA/cm Intake Note: Patient last seen by Doctor Torie Eduardo on 09/13/23. Presents today for RA follow up and test results. Patient taking Mounjaro, 7.5 . Allergies Penicillins Allergy (Severe, Verified 07/10/24 13:57) Anaphylaxis vaccine adjuvant system, AS01B lipo [From Shingrix (PF)] Allergy (Mild, Verified 07/10/24 13:57) Shingles varicella-zoster virus glycoprotein [From Shingrix (PF)] Allergy (Mild, Verified 07/10/24 13:57) Shingles omeprazole [From Prilosec] Adverse Reaction (Severe, Verified 07/10/24 13:57) Rash pregabalin [From Lyrica] Adverse Reaction (Severe, Verified 07/10/24 13:57) fluid gain Medication List - Last Reconciled 07/10/24 by Ana Alvarez MD aspirin (Adult Aspirin Regimen) 81 mg PO DAILY buprenorphine 15 mcg/hour 1 patch topical QWEEK celecoxib (Celebrex) 200 mg PO BID cholecalciferol (vitamin D3) (Vitamin D3) 125 mcg PO DAILY cyanocobalamin (vitamin B-12) mcg IM cyclobenzaprine 5 mg PO TID PRN cyclosporine 0.1% (Vevye) drps ophthalmic (eye) empagliflozin (Jardiance) 10 mg PO DAILY epinephrine (EpiPen) 0.3 mg IM Q4H PRN flecainide mg PO DAILY gabapentin 300 mg PO BID glimepiride 2 mg PO DAILY PRN isosorbide mononitrate ER 15 mg PO QAM loperamide mg PO losartan 50 mg PO DAILY metoprolol succinate ER 25 mg PO DAILY mirabegron ER (Myrbetriq) 50 mg PO DAILY nitroglycerin 0.4 mg sublingual Q5M PRN ondansetron HCl 4 mg PO Q8H oxybutynin chloride ER 15 mg PO DAILY pantoprazole 40 mg PO BID pravastatin 10 mg PO BEDTIME rizatriptan (Maxalt) take 1 tab at onset of headache; if no relief may repeat 1 tab after at least 2 hrs; max = 3 tabs/24 hr PO ropinirole 3 mg PO BEDTIME tizanidine 2 mg PO BEDTIME torsemide mg PO tramadol 50 mg PO BID PRN trazodone 50 - 100 mg PO BEDTIME venlafaxine ER 150 mg PO DAILY HPI Comments Details: Patient is a 64-year-old female with diabetes, hyperlipidemia, hyperparathyroidism, overactive bladder, hypertension, polyarticular osteoarthritis and seronegative rheumatoid arthritis here today for follow up Interval History: Patient last seen 09/13/[address] Eduardo. At that time she was following up for her sero negative rheumatoid arthritis on Enbrel monotherapy with significant improvement in her swollen and tender joint count. About 3 months ago, she stopped Enbrel due to rash (hives, sores and erythema at the injection sites) Since then she has noticed return of symtoms Of note she was walking in [place] and noticed sudden onset of foot pain. Went to several providers before ultimately doing a CT which confirmed a fracture. Currently seeing podiatry and in an ankle brace Rheumatologic History: Seronegative rheumatoid arthritis -ve RF -ve CCP (initial eval : bilateral hand pain and swelling, worse on the right, symptoms most severe in the 2nd and 3rd MCP, history of right distal tibia fracture with no memory of any trauma.? RT ankle MRI showing multiple tendon tears and tenosynovitis) MTX 04/2023 DC 05/2023 due to nausea & GI upset Enbrel 06/2023 effective Initial history: This is a 62-year-old female who presents for evaluation of bilateral hand pain and swelling. She stated that she used to follow-up with Dr. Gr years ago and was diagnosed with fibromyalgia. She states that for the last 2 and half years she has been having bilateral hand pain and swelling, worse on the right, usually involves the 2nd and 3rd MCP and is now starting to involve the 4th and 5th MCPs. Symptoms not improved with NSAIDs, 2 weeks ago patient was having left hip pain, she took a prednisone prescription that was left over from a prescription for bronchitis last year. The prednisone helped her hip and improved the pain and swelling of her hands. She was also having significant right ankle pain. She was recently evaluated by Pain Management for a spinal cord stimulator right ankle MRI was ordered which showed right distal tibia fracture as well as multiple ligament tears as well as possible tenosynovitis. She was evaluated by a foot and ankle surgeon and no specific treatment was recommended. States that her brother was diagnosed with my Iwona ds (IgG4 related ds) and follows up in [place]. She denies any history of DVT/PE Current Rheumatology Medication(s): Enbrel 50mg SC weekly (no longer taking) [facility] Medical History Hiatal hernia Diffuse spasm of esophagus Obstructive sleep apnea syndrome Osteoporosis Hyperlipidemia Family history of breast cancer Migraine Vitamin D deficiency Restless legs Salomon esophagus Morbid obesity Fibromyalgia Insomnia Cobalamin deficiency Spinal stenosis of lumbar region Lumbar radiculopathy Overactive bladder Chronic kidney disease, stage 3a Pain in left foot Allergy to penicillin ROQUE (dyspnea on exertion) Sensory ataxia Peripheral venous insufficiency Thrombophlebitis of superficial veins of both lower extremities Heart failure with normal ejection fraction Paroxysmal supraventricular tachycardia Coronary atherosclerosis Prinzmetal angina Hypertensive renal disease Anisocoria Chronic pain syndrome Anxiety Major depressive disorder Iron deficiency anemia Surgical History History of total right knee replacement H/O gastric bypass Lumbar post-laminectomy syndrome Family History Mother Hypertension Father Non-Hodgkin lymphoma Hypertension Diabetes Brother Mikulicz syndrome Review of Systems Const Details: Review of Systems Constitutional: Denies fever, chills, weight loss ENT: Denies vision changes, eye pain or eye redness, dental caries, dry mouth GI: Denies nausea, vomiting, diarrhea, abdominal pain, change in BM Pulm: Denies SOB, ROQUE, hemoptysis, wheezing Cards: Denies chest pain, palpitations Skin: Denies Raynaud's, rash, nail changes, photosensitivity, [employer]: Denies headaches, weakness, paresthesias, recurrent falls MSK: as per HPI All other systems reviewed and are unremarkable except noted above Physical Exam Vital Signs: Last Vital Signs Pulse 72 07/10/24 13:52 BP 124/70 07/10/24 13:52 Pulse Ox 93 07/10/24 13:52 Oxygen Delivery Method Room Air 07/10/24 13:52 BMI result Body Mass Index 33.9 Vital signs reviewed Physical Examination CONSTITUITIONAL Patient alert and cooperative. Well appearing and in no apparent painful distress HEENT Conjunctiva and sclera clear. ?Pupils equal round and reactive to light. ?No lymphadenopathy. ? CHEST/RESPIRATORY SYSTEM Normal respiratory effort and able to speak in complete sentences. ?Clear to auscultation bilaterally. ?No crackles, rales, rhonchi, wheezes heard. CARDIAC SYSTEM Regular rate and rhythm. ?S1 and S2 heard no murmurs. ?Radial pulses intact bilaterally MSK Hands: ?Able to make a fist. Right: TTP of the 2nd - 5th MCPs and PIPs Left: TTP of the 3rd MCP. No TTP of the PIPs Mild herbeden's nodes noted Wrists: ?Full range of motion.Bilateral TTP Elbows: Full range of motion without pain. No tenderness, weakness, swelling, increased warmth or erythema. Shoulders: Full range of active range of motion. TTP bilateral AC joint Hips: Full range of motion without pain. Hip bursa: Bilateral TTP Knees: ?Full range of motion. ?No tenderness, swelling, increased warmth or erythema.?Surgical scar of the right knee. Ankles: Right ankle in a mold. Left ankle no TTP or swelling.? Feet: ?Negative squeeze test. ?No tenderness to palpation or swelling of the MTPs. Tender points:?No tenderness to palpation of the bilateral trapezius, supraspinatus, greater trochanters, anterior costochondral junctions, bilateral gluteal areas, bilateral suboccipital muscle insertions SKIN Skin intact without rashes. Results Reviewed Results Reviewed: Laboratory Tests 05/01/24 15:25 WBC 8.1 RBC 5.07 Hgb 14.3 Hct 43.8 Plt Count 268 ESR 5 Sodium 143 Potassium 4.3 Chloride 110 H Carbon Dioxide 27 BUN 16 Creatinine 0.91 AST 22 ALT 15 Alkaline Phosphatase 87 C-Reactive Protein 0.28 Rheumatology lab 03/30/23 16:40 Rheumatoid Factor < 13.0 Cycl Citrul Peptide IgG <16 KELLY Screen NEGATIVE Infectious labs 03/30/23 16:40 Hepatitis A IgM Ab Nonreactive Hep Bs Antigen Negative Hep Bs Antibody REACTIVE Hep B Core Total Ab Nonreactive Hepatitis C Ab (EIA) Nonreactive TB Test (T-Spot) Com Negative Assessment & Plan Assessment & Plan (1) Seronegative rheumatoid arthritis: Comment: -ve RF -ve CCP (initial eval : bilateral hand pain and swelling, worse on the right, symptoms most severe in the 2nd and 3rd MCP, history of right distal tibia fracture with no memory of any trauma.? RT ankle MRI showing multiple tendon tears and tenosynovitis) MTX 04/2023 DC 05/2023 due to nausea & GI upset Enbrel 06/2023 effective Code(s): M06.00 - Rheumatoid arthritis without rheumatoid factor, unspecified site Category: Medical Plan: #Seronegative RA Patient is a 64-year-old female with seronegative rheumatoid arthritis here today for follow up. Had an allergic reaction to Enbrel and so had to self discontinue it. Currently in flare of her disease with elevated CDAI and inflammatory markers indicating moderate rheumatoid arthritis disease activity. Since she had good efficacy from the Enbrel we will try another TNF: Humira Plan - Stop Enbrel - Start Humira 40mg SC every 2 weeks - RTC 3 months - Labs before visit: CBC, CMP, ESR, CRP, hepatitis panel, T spot (2) Screening for osteoporosis: Code(s): Z13.820 - Encounter for screening for osteoporosis Plan: #Screening for osteoporosis Patient with ankle fracture after minimal trauma. We will check bone density (3) Encounter for monitoring of adalimumab therapy: Code(s): Z51.81 - Encounter for therapeutic drug level monitoring; Z79.620 - moth exterminator (current) use of immunosuppressive biologic Plan: #Long-term Use of TNF Inhibitors: Humira Discussed with the patient the benefits and risks of TNF inhibitors for the management of the rheumatic condition Benefits include reduce pain, maintenance of remission and reduction of flares as well as ?progression of the disease Risks include injection sites/infusion reactions, serious infections (such as bacterial infections, opportunistic infections), malignancy, delaminating syndromes, autoimmune phenomena, CHF exacerbations, palmar plantar psoriasis and cytopenias Recommended rotating injection sites, and holding medication during and for up to 1 week after resolution of a febrile illness or open skin wound Plan I spent 42 minutes reviewing the record and labs, taking a history, examining the patient, discussing the treatment plan, ordering diagnostic work up and documenting in the medical record Orders: Orders XR DEXA axial skeleton Today M81.0 - Age-related osteoporosis without current pathological fracture XR DEXA appendicular skeleton Today M81.0 - Age-related osteoporosis without current pathological fracture Complete Blood Count Auto Diff 3 Months M06.00 - Rheumatoid arthritis without rheumatoid factor, unspecified site Comprehensive Met. Panel 3 Months M06.00 - Rheumatoid arthritis without rheumatoid factor, unspecified site Erythrocyte Sedimentation Rate 3 Months M06.00 - Rheumatoid arthritis without rheumatoid factor, unspecified site Hepatitis A,B,C Profile 3 Months M06.00 - Rheumatoid arthritis without rheumatoid factor, unspecified site T Spot TB 3 Months M06.00 - Rheumatoid arthritis without rheumatoid factor, unspecified site C Reactive Protein 3 Months M06.00 - Rheumatoid arthritis without rheumatoid factor, unspecified site Medications: New adalimumab (Humira(CF) Pen) 40 mg (0.4 mL) subcut Q2W 2 ea 5RF M06.00 - Rheumatoid arthritis without rheumatoid factor, unspecified site Coding Level of Care Code Est Pt Level 5 (15587) Complex EM visit Add On G2211 Diagnoses Seronegative rheumatoid arthritis M06.00 Screening for osteoporosis Z13.820 Encounter for monitoring of adalimumab therapy Z51.81; Z79.620
--- OUTSIDE RECORDS SUMMARY | 2024-07-10 15:34 | XMS_ITS | Data Portability ---
Author Organization [facility], Main Office Address [address] [facility] [address] [place] [id number] Care Team Providers Care Tube Skiver Name Role Phone JHONNY RESENDIZ Medical Oncologist [phone] YVON CUEVA Orthopedic Surgeon [phone] ANNEMARIE GILL Cleat Maker LOUISA TATUM Breast Surgeon AMBER SMALLWOOD Primary Care Provider [phone] [facility] Lead Generation Representative [facility] Urologist LOKESH LAMAR Neurologist CATHY CURTIS Pickling Solution Maker MAGDALENA LOWERY Sleep Medicine TAMMIE MITCHELL Machine Maintenance Servicer ARIC SERRA Physical Therapist [phone] QUE PIKE Pipe Wrapping Machine Operator [phone] WIL IRAHETA Automotive Metalsmith Assessment Encounter Date Assessment Date Assessment LastModified by Organization Details LastModified Time 02/20/2024 02/20/2024 This service was provided using telemedicine. Patient consented to video & audio visit Patient was located in the [facility]. Provider was located in the office. No other persons participated in the telemedicine visit except for the patient unless otherwise indicated here. Total time of visit was 20 minutes. STable symptoms of URI with recent COVID diagnosis. Used Lagevrio because of renal insufficiency last time she was treated for COVID. Also noted to have fewer drug drug interactions with Lagevrio. Reviewed infection control recommendations and indications for call to office or eval in ED. [email or web address] Not available 02/20/2024 14:19:51 03/01/2024 03/01/2024 This service was provided using telemedicine. Patient consented to video & audio visit Patient was located in the [facility]. Provider was located in the office. No other persons participated in the telemedicine visit except for the patient unless otherwise indicated here. Total time of visit was 15 minutes. [email or web address] Not available 03/01/2024 17:00:40 04/19/2024 04/19/2024 This service was provided using telemedicine. Patient consented to video & audio visit Patient was located in the [facility]. Provider was located in the office. No other persons participated in the telemedicine visit except for the patient unless otherwise indicated here. Total time of visit was 15 minutes. kathie Not available 04/19/2024 15:40:50 05/31/2024 05/31/2024 This service was provided using telemedicine. Patient consented to video & audio visit Patient was located at home in the [facility]. Provider was located in the office. No other persons participated in the telemedicine visit except for the patient unless otherwise indicated here. Total time of visit was 12 minutes. [email or web address] Not available 05/31/2024 15:11:24 Plan of Treatment Reminders Order Date Submit Date Provider Last Modified By Organization Details Last Modified Time Details Appointments Follow Up DM 30 2024 10:00A M Tatianna Smallwood PA-C Not available Not available Not available AWV30 2024 01:00P M Amber Smallwood PA-C Not available Not available Not available Lab None record ed. Referral None record ed. Procedures None record ed. Surgeries None record ed. Imaging None record ed. Medication Orders Tyleno l Arthri tis Pain 650 mg tablet ,exten ded releas e 2024 025 [facility]/Pharmacy #[id number], [address] [place] [address], [address], 05/31/2024 15:10:50 bupren orphin e 15 mcg/ho ur weekly transd ermal patch 2024 025 [facility]/Pharmacy #0838, [address] [place] [address], [address], 07/05/2024 05:01:29 bupren orphin e 15 mcg/ho ur weekly transd ermal patch 2024 025 [facility]/Pharmacy #0859, [address] [place] [address], [address], 07/05/2024 05:01:29 bupren orphin e 15 mcg/ho ur weekly transd ermal patch 2024 025 [facility]armacy #0859, [address] [place] [address], [address], 07/05/2024 05:01:29 Tyleno l Arthri tis Pain 650 mg tablet ,exten ded releas e 2024 025 [facility]/Pharmacy #0859, [address] [place] [address], [address], 04/19/2024 15:28:16 bupren orphin e 15 mcg/ho ur weekly transd ermal patch 2024 025 [facility]/Pharmacy #0859, [address] [place] [address], [address], 07/05/2024 05:01:29 bupren orphin e 15 mcg/ho ur weekly transd ermal patch 2024 025 [facility]/Pharmacy #0859, [address] [place] [address], [address], 07/05/2024 05:01:29 bupren orphin e 15 mcg/ho ur weekly transd ermal patch 2024 025 [facility]/Pharmacy #0859, [address] [place] [address], [address], 07/05/2024 05:01:29 Mounja ro 5 mg/0.5 mL subcut aneous pen inject or 2024 025 [facility]/Pharmacy #0859, [address] [place] [address], [address], 05/22/2024 14:08:28 Lagevr io 200 mg capsul e (EUA) 2024 025 [facility] #[id number], [address] [place], [place], [id number], 03/01/2024 14:46:57 COVID- 19 At-Marissa e Test kit 2024 025 angely [facility] #[id number], [address] [place], [place], [id number], 05/31/2024 14:37:13 Patient TargetsNo targets recorded. Patient Instructions Encounter Date Encounter Id Patient Instructions Last Modified By Organization Details Last Modified Time 02/20/2024 [id number] 10 things to do when you have covid-19 [email or web address] Not available 02/20/2024 13:48:43 04/11/2024 [id number] body mass index: care instructions Not available 04/11/2024 10:44:30 learning about healthy weight Not available 04/11/2024 10:44:30 Medications (OTC, herbal therapies, supplements) reviewed and reconciled with patient and or caregiver, including potential side effects, drug interactions, instructions, and the consequences of not taking medication. Reviewed potential barriers to medication adherence, such as side effects from medication or cost of medication. [email or web address] Not available 04/11/2024 10:11:31 04/19/2024 [id number] chronic pain: care instructions [email or web address] Not available 04/19/2024 15:28:13 Learning About Take-Home Naloxone Kits for Opioid Emergencies [email or web address] Not available 04/19/2024 15:28:13 Reviewed the risks and benefits of long-term use of opiate for chronic, non-malignant pain. Reviewed with patient that group home opiate use is appropriate treatment based on current medical condition and patient states that continued benefit is noted. Contract for opiate use is in place. Discussed side effects of opiates. Caution driving, reviewed fall risk, and treatment for constipation, as well as option to fill in lesser amounts. [email or web address] Not available 04/19/2024 15:21:16 05/31/2024 [id number] chronic pain: care instructions [email or web address] Not available 05/31/2024 15:00:10 Learning About Take-Home Naloxone Kits for Opioid Emergencies [email or web address] Not available 05/31/2024 15:00:10 Reviewed the risks and benefits of long-term use of opiate for chronic, non-malignant pain. Reviewed with patient that ferry terminal agent opiate use is appropriate treatment based on current medical condition and patient states that continued benefit is noted. Contract for opiate use is in place. Discussed side effects of opiates. Caution driving, reviewed fall risk, and treatment for constipation, as well as option to fill in lesser amounts. A Prescription for an Opioid has been given to the patient and I have reviewed the patients profile in [facility] Partial fill of RX is possible. angely Not available 05/31/2024 14:35:40 Reason for Referral None Reported. Results Created Date Observation Date Name Description Value Unit Range Abnormal Flag Note LastModifiedBy Organization Detail LastModifiedTime 03/19/1903/20/2024 BASIC METAB OLIC PANEL (8) glucose 96 mg/dL 70-99 normal Not Available [facility] ([facility]) [address] [place], [address], 03/21/2024 12:05:57 03/19/19 25 03/20/2024 BASIC METAB OLIC PANEL (8) BUN 23 mg/dL 8-27 normal Not Available [facility] ([facility]) [address] [place], [address], 03/21/2024 12:05:57 03/19/19 25 03/20/2024 BASIC METAB OLIC PANEL (8) creatinine 1.10 mg/dL 0.57-1 .00 above high normal Not Available [facility] ([facility]) [address] [place], [address], 03/21/2024 12:05:57 03/19/19 25 03/20/2024 BASIC METAB OLIC PANEL (8) eGFR 56 mL/mi n/1.7 3 >59 below low normal Not Available [facility] ([facility]) [address] [facility] [place], [address], 03/21/2024 12:05:57 03/19/19 25 03/20/2024 BASIC METAB OLIC PANEL (8) BUN/creatini ne ratio 21 12-28 normal Not Available [facility] ([facility]) [address] [facility] [place], [address], 03/21/2024 12:05:57 03/19/19 25 03/20/2024 BASIC METAB OLIC PANEL (8) sodium 144 mmol/ L 134-14 4 normal Not Available [facility] ([facility]) [address] [facility] [place], [address], 03/21/2024 12:05:57 03/19/19 25 03/20/2024 BASIC METAB OLIC PANEL (8) potassium 4.9 mmol/ L 3.5-5. 2 normal Not Available [facility] ([facility]) [address] [facility] [place], [address], 03/21/2024 12:05:57 03/19/19 25 03/20/2024 BASIC METAB OLIC PANEL (8) chloride 105 mmol/ L 96-106 normal Not Available [facility] ([facility]) [address] [facility] [place], [address], 03/21/2024 12:05:57 03/19/19 25 03/20/2024 BASIC METAB OLIC PANEL (8) carbon dioxide, total 24 mmol/ L 20-29 normal Not Available [facility] ([facility]) [address] [facility] [place], [address], 03/21/2024 12:05:57 03/19/19 25 03/20/2024 BASIC METAB OLIC PANEL (8) calcium 8.9 mg/dL 8.7-10 .3 normal Not Available [facility] ([facility]) [address] [facility] [place], [address], 03/21/2024 12:05:57 03/19/19 25 03/21/2024 ALBUM IN/CR EAT RATIO , RANDO M UR creatinine, urine 80.3 mg/dL not estab. normal Not Available [facility] ([facility]) [address] [facility], [place], [address], 03/21/2024 12:05:58 03/19/19 25 03/21/2024 ALBUM IN/CR EAT RATIO , RANDO M UR albumin, urine 6.2 ug/mL not estab. Not Available [facility] ([facility]) [address] [place], [address], 03/21/2024 12:05:58 03/19/19 25 03/21/2024 ALBUM IN/CR EAT RATIO , RANDO M UR alb/creat ratio 8 mg/g_ creat 0-29 Kathleen l: 0 - 29 Moder ately incre ased: 30 - 300 Sever jelena incre ased: >300 Not Available [facility] ([facility]) [address] [facility], [place], [address], 03/21/2024 12:05:58 03/19/19 25 03/20/2024 HEMOG LOBIN A1C hemoglobin A1C 6.0 % 4.8-5. 6 above high normal Predi abete s: 5.7 - 6.4 Diabe colleen: >6.4 Glyce joel contr ol for adult s with diabe colleen: <7.0 Not Available [facility] ([facility]) [address] [facility], [place], [address], 03/21/2024 12:05:59 03/28/1903/28/2024 TISSU E EXAM .note See Note Origi nal Order ing Provi cristina: [facility] - [address], [place], [place] [address] Not Available [address], [address], 03/29/2024 10:59:10 03/28/19 25 03/28/2024 TISSU E EXAM final diagnosis Esopha gaby, biopsy : - Squam ocolu mnar junct ion with a focus of intes tinal metap lasia (Strong ett esoph catie) ident ified in one tissu e fragm ent, negat herminio for dyspl zak. - Esoph ageal squam ous mucos a with scatt ered intra epith elial eosin ophil s (maxi mum of three intra epith elial eosin ophil s in a high- power field and react herminio epith elial simpson es inclu ding focal ly promi nent spong iosis , basil ar hyper plasi a and an areas of mucos al erosi on. - Scant gastr ic cardi ac-ty pe mucos a with chron ic infla mmati on also prese nt. Elect nieves kovacs matt d by Matti Bustos MD on 2024 at 10:56 AM Not Available [address], [address], 03/29/2024 10:59:10 03/28/19 25 03/28/2024 TISSU E EXAM gross description A. Esopha gaby, biopsi es- hx of emilie ts: Label ed biop sies esoph catie . Recei gen in forma mark are seven irreg ular pink- white mucos al tissu e fragm ents, rangi ng from less than 0.1 cm to 0.3 cm in great est dimen amari, which are wrapp ed in paper and submi tted in toto in one casse tte, seven piece s, multi ple level s on one slide . YADY Not Available [address], [address], 03/29/2024 10:59:10 03/28/19 25 03/28/2024 TISSU E EXAM disclaimer Unles s other jacinto speci fied, all tissu e is 10% NB forma mark fixed and paraf fin embed ded. Not Available [address] [place], [address], 03/29/2024 10:59:10 02/27/19 25 02/28/2024 CT, chest , w/o contr ast CT Chest W/O Contra st INDICA TION: R91.1; pulmon victor hugo nodule . TECHNI QUE: Helica l CT scan of the chest withou t IV contra st, format lupe in 3 planes . Weight -based protoc ol was perfor med using automa tic exposu re contro l. CTDIvo l Body: 15.49 mGy, DLP Body: 514 mGy*cm . COMPAR DERREK: Cardia c CT 07/12/19 19. FINDIN GS: Trache a and airway s: Patent withou t eviden ce of trache al or endobr onchia l lesion . Lungs and pleura : Multif ocal ground glass opacit ies throug hout the right upper and left lower lobes predom inantl y new compar ed to previo us. Subtle nodula rity along the depend ent portio n of the right lower lobe pleura l surfac e for instan ce there is a 7 mm nodule microsoft architect ior medial ly axial image 51 series 3. Discoi d focus of atelec tasis or scarri ng microsoft architect iorly inferi marisabel in the lingul a is new compar ed to the previo us examin ation withou t eviden ce of a centra l obstru cting abnorm ality. No effusi on or pneumo thorax . Medias tinum and ingris: No mass or hemato ma. No medias tinal or hilar lympha denopa thy. Heart: Heart is normal in size. No perica rdial effusi on. Minima l jaimes ry artery calcif icatio n. Aorta: Unrema rkable . Pulmon victor hugo arteri es: Normal calibe r. Chest wall soft tissue s: No acute abnorm ality. Diaphr agm and includ ed upper abdome n: Small slidin g hiatal hernia is again noted with eviden ce of a previo us gastri c bypass . Patien t is status post cholec ystect brian. Bones: No acute abnorm alitie s, no suspic ious osseou s lesion s. IMPRES AMARI: 1. Multif ocal subtle ground glass opacit ies throug hout the right lung are likely infect ious or inflam matory than neopla stic. 2. Indete rminat e 7 mm right lower lobe pulmon victor hugo nodule abutti ng the pleura l surfac e microsoft architect iorly. 3. Discoi d focus of atelec tasis or scarri ng in the lingul a new compar ed to previo us CT of the abdome n 2023. 4. Interv al follow -up in 3-6 months recomm ended. WSN: [id number] Orderi ng Physic hannah: Michael Smallwood Dictat ed By: Elisa skinner MD, Sanjeev Mcclure Dictat ed Date/T jory: 4:19 pm Review ed By: Elisa skinner MD, Sanjeev Mcclure Signed By: Elisa skinner MD, Sanjeev Mcclure Signed Date/T jory: 4:19 pm Transc ribed By: CHAD Transc ribed Date/T jory: 4:06 pm Patien t Class: Outpat ient [facility] (Outpt Imaging) [address] [facility], [place], [address], 03/06/2024 09:35:17 03/28/19 25 upper endos copy proce dure (EGD) (PROC ) No observ ation record ed. [email or web address] [address], [address], 03/29/2024 11:26:38 05/17/19 25 05/16/2024 XR, ankle , 3 or more view See Note [facility] , a member of [employer] Name: MAREN BEGUM Date of : 1960 Reason for Exam: follow up right ankle Exam Date: 2024 [id number] EST Report Status : Final Orderi ng Provid er: CALVIN PIKE PCP: MICHAEL SMALLWOOD Right ankle [address], [address], 05/16/2024 20:55:28 05/17/19 25 05/16/2024 XR, ankle , 3 or more view See Note [facility] , a member of [employer] [facility] Name: MAREN BEGUM Date of : 1960 Reason for Exam: follow up right ankle Exam Date: 2024 [id number] EST Report Status : FA Orderi ng Provid er: CALVIN PIKE PCP: MICHAEL SMALLWOOD Right ankle 3 views Radiog raphs unchan ged from previo us radiog raphs taken in Octobe r consis tent with advanc ed pes planus foot type concer ns for prior high fibula r fractu re with deltoi d insuff icienc y causin g valgus tiltin g of the talus [address], [address], 05/16/2024 20:55:29 06/30/19 25 06/28/2024 MAMMO , scree sravani, digit al, bilat eral No observ ation record ed. [email or web address] [facility] [place] [address] [place], [address], 07/04/2024 08:16:40 07/04/19 25 06/28/2024 MAMMO , scree sravani, digit al, bilat eral No observ ation record ed. [address] [facility] [place] [address] [place], [address], 07/04/2024 08:16:52 Result Notes None recorded. Problems Name Problem SNOMED Code Status Onset Date Resolution Date Notes Provider Name and Address Organization Details Recorded Time Serum iron below reference range 610061371 Completed 201702/17/2022 Amber Smallwood PA-C [address] [facility] [address], [place], [address], [facility] 3 19:10:49 Lumbar radiculop athy 065016540 Active 2017 [facility] [place] [facility] 0 09:22:54 Restless legs 15497451 Active 2017 QIAN Fischer, [facility] 4 11:20:41 Hiatal hernia 57063913 Completed 201709/07/2023 Amber Smallwood PA-C [address], [place], [address], [facility] 4 17:32:58 Salomon's esophagus 186277737 Active 2017 QIAN Fischer, [facility] 4 11:20:41 Diffuse spasm of esophagus 90588124 Active 2017 Alesha Kitchen CPPM null, [facility] 0 09:22:55 Spinal stenosis of lumbar region 92818795 Active 2017 Alesha Kitchen CPPM null, [facility] 0 09:22:54 Fibromyal danyel 365448681 Active 2017 QIAN Fischer, [facility] 4 11:20:41 Osteoporo sis 84318086 Active 2017 ARIEL Duggan, [facility] 0 09:22:54 Migraine 87128163 Active 2017 QIAN Fischer, [facility] 4 11:20:41 Cobalamin deficienc y 459193883 Active 2017 Alesha Kitchen CPPM null, [facility] 0 09:22:55 Foot pain 23794014 Completed 201708/04/2020 Amber Smallwood PA-C [address], [place], [address], [facility] 1 13:44:08 Closed fracture of lower limb 20197358 Completed 201702/17/2022 Amber Smallwood PA-C [address], [place], [address], [facility] 3 19:08:57 Edema of knee 876064920 Completed 201712/01/2020 Tatiannaandi Smallwood PA-C [address], [place], [address], [facility] 1 09:02:20 Edema of lower extremity 970966848 Completed 201809/05/2022 Amber Smallwood PA-C [address], [place], [address], [facility] 3 09:51:25 Morbid obesity 123870814 Active 2018 ARIEL Duggan, [facility] 0 09:22:54 Vitamin D deficienc y 21983189 Active 2018 Alesha Kitchen CPPM null, [facility] 0 09:22:54 Diastolic dysfuncti on 4412039 Completed 201802/17/2022 Amber Smallwood PA-C [address], [place], [address], [facility] 3 19:09:29 Hyperlipi demia 22660002 Active 2018 ARIEL Duggan, [facility] 0 09:22:55 Hypokalem ia 37043596 Completed 201809/05/2022 Amber Smallwood PA-C [address], [place], [address], [facility] 3 09:51:55 Insomnia 324306993 Active 2018 Amber Smallwood PA-C [address], [place], [address], [facility] 4 17:32:12 Obstructi ve sleep apnea syndrome 12304964 Completed 201909/07/2023 Amber Smallwood PA-C [address], [place], [address], [facility] 4 17:34:29 Upper respirato ry infection 20691972 Completed 02/17/2022 Amber Smallwood PA-C [address], [place], [address], [facility] 3 19:13:51 Family history of breast cancer 572410187 Active Lucia Ale null, [facility] 0 15:11:00 Overactiv e urinary bladder 388064328 Active 2019 Alesha Kitchen CPPM null, [facility] 0 09:22:54 Major depressiv e disorder 612182219 Active 2019 Alesha Kitchen CPPM null, [facility] 0 09:22:54 Nausea 220588828 Completed 201902/17/2022 Amber Smallwood PA-C [address] [facility] [address], [place], [address], [facility] 3 19:10:18 Allergy to penicilli n 87281098 Active 2019 Alesha Kitchen CPPM null, [facility] 0 09:22:54 Heart failure with normal ejection fraction 461019046 Active 2019 Alesha Kitchen CPPM null, [facility] 0 09:22:54 Paroxysma l supravent ricular tachycard ia 13062980 Active 2019 Alesha Kitchen CPPM null, [facility] 0 09:22:54 Coronary atheroscl erosis 472572133 Active 2019 Alesha Kitchen CPPM null, [facility] 0 09:22:55 Chronic diastolic heart failure 804553029 Completed 201909/05/2022 Amber ZARATEC [address], [place], [address], [facility] 3 09:51:01 Chronic pain syndrome 364560424 Active 2019 Amber ROSE-C [address], [place], [address], [facility] 0 16:11:06 Prediabet es 379607534 Completed 201910/09/2019 Tatianna ROSE-C [address], [place], [address], [facility] 0 10:31:33 Pain in left foot 270530781647 107 Completed 201909/07/2023 Amber ZARATEC [address], [place], [address], [facility] 4 17:35:00 Type 1 diabetes mellitus without complicat ion 800851551 Completed 201910/09/2019 Tatianna ZARATEC [address], [place], [address], [facility] 0 10:27:27 Type 2 diabetes mellitus without complicat ion 944756422 Completed 201911/20/2019 Tatianna ROSE-C [address], [place], [address], [facility] 0 11:11:03 Chronic kidney disease stage 2 725716066 Completed 201908/04/2020 Tatianna ZARATEC [address], [place], [address], [facility] 3 10:37:16 Sensory ataxia 292820580 Active 2019 Amber ROSE-Kary [address], [place], [address], [facility] 0 10:11:58 Hypertens herminio renal disease 17580497 Active 2019 Silviatarah Bull jami, [facility] 0 10:23:38 Chronic kidney disease due to type 2 diabetes mellitus 676219754678 Completed 201904/21/2020 Tatianna Smallwood PA-C [address], [place], [address], [facility] 1 10:32:56 History of herpes zoster 059554424784 108 Completed 02/17/2022 Amber Smallwood PA-C [address] [facility] [address], [place], [address], [facility] 3 19:14:16 Renal disorder due to type 2 diabetes mellitus 884783087 Active 2020 Tatianna Smallwood PA-C [address], [place], [address], [facility] 1 10:33:00 Renal hypertens ion 42380231 Completed 202002/17/2022 Amber Smallwood PA-C [address], [place], [address], [facility] 3 19:10:37 Periphera l venous insuffici ency 27660633 Active 2020 Amber Smallwood PA-C [address], [place], [address], [facility] 1 13:28:35 Thromboph lebitis of superfici al veins of lower extremity 99976778 Active 2020 Amber Smallwood PA-C [address], [place], [address], [facility] 1 13:30:27 Chronic kidney disease stage 3A 247694133 Completed 202002/17/2022 Tatianna Smallwood PA-C [address], [place], [address], [facility] 3 10:37:07 Cardiac arrhythmi a 384866141 Completed 202002/17/2022 Amber Smallwood PA-C [address], [place], [address], [facility] 3 19:08:39 Essential hypertens ion [id number] Completed 202010/10/2020 Silvia Bull jami, [facility] 1 08:26:34 Anxiety state [id number] Active 2020 Amber Smallwood PA-C [address], [place], [address], [facility] 1 13:15:46 Glenoid labrum tear [id number] Completed 202009/05/2022 Amber Smallwood PA-C [address], [place], [address], [facility] 3 09:51:46 Prinzmeta l angina [id number] Active 2021 Amber Smallwood PA-C [address], [place], [address], [facility] 2 16:04:30 Acute bronchiti s [id number] Completed 202102/17/2022 Amber Smallwood PA-C [address], [place], [address], [facility] 3 19:08:01 Iron deficienc y anemia 30084762 Active 2022 Amber Smallwood PA-C [address], [place], [address], [facility] 3 10:32:11 Anisocori a 43029909 Active 2022 Amber Smallwood PA-C [address], [place], [address], [facility] 3 11:30:11 Chronic kidney disease stage 3A [id number] Active 2022 Tatianna Smallwood PA-C [address], [place], [address], [facility] 3 10:37:07 Dyspnea on exertion 15783267 Active 2022 Amber Smallwood PA-C [address], [place], [address], [facility] 3 09:54:27 Diabetic periphera l neuropath y 663839129 Active 2022 Tatianna Smallwood PA-C [address], [place], [address], [facility] 3 13:35:47 Pain in right foot [id number] 107 Active 2023 Amber Smallwood PA-C [address], [place], [address], [facility] 4 17:45:05 Hyperpara thyroidis m 33203244 Active 2023 Amber Smallwood PA-C [address], [place], [address], [facility] 4 12:43:26 Body mass index 40+ - severely obese 310079962 Active 2023 Taitanna Smallwood PA-C [address], [place], [address], [facility] 4 14:00:24 Chronic constipat ion 170753238 Active 2023 Amber Smallwood PA-C [address], [place], [address], [facility] 4 10:47:27 Mixed sleep apnea 935391995 Active 2023 Amber Smallwood PA-C [address], [place], [address], [facility] 4 10:48:24 Seronegat herminio rheumatoi d arthritis 803102957 Active 2023 Amber Smallwood PA-C [address], [place], [address], [facility] 4 12:00:51 Restricti ve lung disease 71980765 Active 2023 Amber Smallwood PA-C [address], [place], [address], [facility] 4 12:05:48 Solitary nodule of lung 684310068 Active 2023 Amber Smallwood PA-C [address], [place], [address], [facility] 4 18:19:18 Problem Notes None recorded. Procedures Surgical History Date Name Laterality Status Provider Name and Address Organization Details Recorded Time 06/28 Most Recent Mammogram completed Darlene Williamson [facility] 5 08:16:29 05/31 Chronic Pain Assessment completed Elzbieta Hoffman MA [facility] 5 14:45:18 04/19 Chronic Pain Assessment completed Laura Cantu MA [facility] 5 14:55:38 03/28 Endoscopic us exam esoph completed Darlene Williamson [facility] 5 11:26:28 02/12 Chronic Pain Assessment completed Evelyn Carlos MA [facility] 5 13:40:46 01/12 injection into lumbar epidural space completed Darlene Williamson [facility] 4 08:40:40 07/28 injection into lumbar epidural space completed Darlene Williamson [facility] 4 11:18:58 06/22 Mammogram screening completed Elena Almanza [place] Yocasta oakley [facility] 4 08:38:32 11/09 Diabetic Foot Exam (Monofilament) completed Tatianna Smallwood PA-C [address] [facility] [address], [place], [address], [facility] 3 13:42:33 10/06 Colonoscopy completed Darlene Williamson [facility] 3 09:25:38 08/11 Chronic Pain Assessment completed Emerald Raphael MA [facility] 3 15:13:46 05/18 Chronic Pain Assessment completed Emerald Raphael MA [facility] 3 16:00:36 03/12 diabetic retinopathy screening completed Darlene Williamson [facility] 3 10:20:34 11/06 esophagogastroduodenoscopy completed Cecy Alex [facility] 2 14:02:40 09/14 Chronic Pain Assessment completed Emerald Raphael MA [facility] 2 10:36:46 06/16 Chronic Pain Assessment completed Emerald Raphael MA [facility] 2 11:46:09 12/01 Diabetic Foot Exam (Monofilament) completed Anjali Goodwin MA [facility] 1 08:52:08 05/21 Chronic Pain Assessment completed Cori Curtis MA [facility] 1 14:35:33 01/16 Chronic Pain Assessment completed Anjali Goodwin MA [facility] 0 10:06:09 11/11 biopsy completed Lucia Aguilera [facility] 0 10:06:52 10/22 Chronic Pain Assessment completed Anjali Goodwin MA [facility] 0 10:01:47 07/17 Chronic Pain Assessment completed Dez Weldon [facility] 0 10:17:29 04/17 Chronic Pain Assessment completed Dez Weldon [facility] 0 11:19:46 01/17 Chronic Pain Assessment completed Magdalena man MA [facility] 9 13:17:58 12/04 Date of Last Pap Smear completed Rosa Alex [facility] 0 13:57:15 10/23 Chronic Pain Assessment completed Dez Weldon [facility] 9 09:15:36 07/24 Chronic Pain Assessment completed Dez Weldon [facility] 9 10:49:00 05/02 Removal of implant deep completed Bhavya Alex [facility] 9 15:44:57 04/25 Chronic Pain Assessment completed Dez Weldon [facility] 9 09:17:25 08/22 Treatment of thigh fracture completed Rosa Alex [facility] 8 14:22:40 07/22 Hydrocortisone acetate inj completed Maribell Alfaro [facility] 8 12:02:53 06/18 Inj paravert f jnt c/t 1 lev completed Guerda Powell [facility] 8 11:46:04 04/05 Date of Last Colonoscopy completed Areli Powell [facility] 8 16:03:59 04/05 Egd diagnostic brush wash completed Imani osorio [facility] 8 13:16:18 03/25 Myelography lumbar injection completed Rosa Alex [facility] 8 11:55:42 02/07 peripherally inserted central catheter care completed Magdalena man MA [facility] 9 15:43:39 02/07 Orthopedic Surgery completed Anjali Goodwin MA [facility] 1 10:38:34 01/10 Suture/Staple removal completed Amber Smallwood PA-C [address] [address], [place], [address] 7 09:29:11 02/07 Eye Surgery completed Anjali Goodwin MA [facility] 1 10:38:34 02/07 Cholecystectomy completed Anjlai Goodwin MA [facility] 1 10:38:34 02/07 Cataract Surgery completed Anjali Goodwin MA [facility] 1 10:38:34 02/07 Bariatric Surgery completed Anjali Goodwin MA [facility] 1 10:38:34 02/07 Joint Replacement completed Anjali Goodwin MA [facility] 1 10:38:34 02/07 Cancer Surgery completed Anjali Goodwin MA [facility] 1 10:38:34 02/07 Back Surgery completed Anjali Goodwin MA [facility] 1 10:38:34 Orthopedic Surgery completed Imani osorio MA [facility] 7 11:22:10 Back Surgery completed Magdalena man MA [facility] 9 11:45:14 Gastric Bypass completed Imani Morataya MA [facility] 7 11:22:54 Unlisted px ant segm ent eye completed Magdaelna man MA [facility] 9 11:45:21 Cataract Surgery completed Imani krishnan MA [facility] 7 11:23:41 Imaging Results None recorded. Procedure Notes None recorded. Medical Equipment None Reported. Allergies Allergen ID Allergen Name Allergen Category Reaction Reaction Severity Criticality Documentation Date Start Date Code Code System Note Provider Name and Address Organization Details Recorded Time 96650 Product containin g penicilli n (product) medicatio n anaphylax is Not available Not available 12/08/2016 46957 8001 SNOMED Imani Olivaariella farrell [facility] 7 11:26:43 74159 Lyrica medicatio n Not available Not available Not available 12/08/2016 90806 1 RxNorm PUT PT IN CHF JUAN Ramírez [facility] 3 10:56:06 13531 Prilosec medicatio n hives tachycard ia Not available Not available Not available 12/08/2016 07138 5 RxNorm QIAN Lopez [facility] 3 09:44:01 99113 omeprazol e medicatio n hives tachycard ia Not available Not available Not available 05/14/2019 7646 RxNorm Lucia Ale farrell [facility] 0 15:11:13 19419 lisinopri l medicatio n rash moderate Not available 10/24/2019 37618 RxNorm QIAN Lopez [facility] 3 09:43:58 66478 Shingrix medicatio n rash Not available Not available 01/26/202019858 26 RxNorm GOT SHING LES AFTER FIRST DOSE, DID NOT GET SECON D DOSE JUAN Ramírez [facility] 3 10:57:33 57578 Ozempic medicatio n nausea Not available Not available 03/19/2024 07 RxNorm Tatianna Mayito S[place] [address] [facility] [address] [place] [address], [facility] 5 15:06:29 Medications Name Sig Start Date Stop Date Status Note LastModified by Organization Details LastModified Time losartan 50 mg tablet TAKE 1 TABLET BY MOUTH EVERY DAY active Not Available Not Available No t Available BD Luer-Reshma Syringe 3 mL 23 x 1 USE TO INJECT B-12 INJECTIO N EVERY MONTH DIRECTED active Not Available Not Available No t Available celecoxib 200 mg capsule TAKE 1 CAPSULE BY MOUTH TWICE DAILY 2024 active Not Available Not Available Not Avai lable cyclobenz aprine 10 mg tablet TAKE 1 TABLET BY MOUTH THREE TIMES DAILY 06/08 completed Not Available Not Available Not Available prednison e 10 mg tablet TAKE 4 TABLETS DAILY FOR 3 DAYS THEN 3 TABLETS DAILY FOR 3 DAYS THEN 2 TABLETS DAILY FOR 3 DAYS THEN 1 TABLET DAILY FOR 3 DAYS 08/11 completed Not Available Not Available Not Available oxybutyni n chloride ER 15 mg tablet,ex tended release 24 hr TAKE 1 TABLET BY MOUTH EVERY DAY active Not Available Not Available No t Available doxycycli ne hyclate 100 mg capsule Take 1 capsule twice a day by oral route for 7 days. 07/15 completed Not Available Not Available Not Available atorvasta tin 20 mg tablet Take 1 tablet every day by oral route at bedtime for 30 days. 06/20 completed Not Available Not Available Not Available ropinirol e 1 mg tablet TAKE 2 TABLETS BY MOUTH EVERY DAY FOR 90 DAYS active Not Available Not Available No t Available venlafaxi ne 75 mg tablet Take 1 tablet twice a day by oral route. 07/14 completed quantity issue Not Available Not Available Not Available torsemide 20 mg tablet TAKE 3 TABLETS BY MOUTH EVERY DAY NEEDED FOR 90 DAYS. active Not Available Not Available No t Available erythromy carol 500 mg tablet 11/19 completed Not Available Not Available Not Available tizanidin e 2 mg tablet TAKE 1 TABLET BY MOUTH EVERY DAY NEEDED active Not Available Not Available No t Available flecainid e 150 mg tablet TAKE 1/2 TABLET BY MOUTH EVERY 12 HOURS active Not Available Not Available No t Available loperamid e 2 mg capsule TAKE 2 CAPSULES BY MOUTH THREE TIMES DAILY NEEDED active Not Available Not Available No t Available trazodone 50 mg tablet TAKE 2 TABLETS BY MOUTH EVERY DAY AT BEDTIME active Not Available Not Available No t Available oxybutyni n chloride ER 10 mg tablet,ex tended release 24 hr Take 1 tablet every day by oral route as directed for 30 days. 12/15 completed Not Available Not Available Not Available azithromy carol 250 mg tablet TAKE 2 TABLETS (500 MG) BY ORAL ROUTE ONCE DAILY FOR 1 DAY THEN 1 TABLET (250 MG) BY ORAL ROUTE ONCE DAILY FOR 4 DAYS 01/19 completed Not Available Not Available Not Available metoprolo l succinate ER 50 mg tablet,ex tended release 24 hr TAKE 1 TABLET BY MOUTH EVERY DAY DIRECTED active Not Available Not Available No t Available valacyclo vir 1 gram tablet Take 1 tablet 3 times a day by oral route for 7 days. 02/25 completed Not Available Not Available Not Available sucralfat e 1 gram tablet TAKE 1 TABLET BY MOUTH FOUR TIMES DAILY 12/09 completed Not Available Not Available Not Available FreeStyle Lancets 28 gauge USE TO TEST BLOOD GLUCOSE ONCE A DAY active Not Available Not Available No t Available ondansetr on HCl 4 mg tablet TAKE 1 TABLET BY MOUTH EVERY 8 HOURS FOR 7 DAYS NEEDED FOR NAUSEA OR VOMITING 04/19 completed Not Available Not Available Not Available famotidin e 40 mg tablet TAKE 1 TABLET BY MOUTH TWICE DAILY 11/02 completed Not Available Not Available Not Available prednison e 20 mg tablet TAKE 2 TABLETS BY MOUTH EVERY DAY WITH MEALS FOR 5 DAYS 01/19 completed Not Available Not Available Not Available isosorbid e mononitra te ER 30 mg tablet,ex tended release 24 hr Take 0.5 tablets every day by oral route. active Not Available Not Available No t Available rizatript an 10 mg tablet TAKE 1 TABLET BY MOUTH EVERY DAY DIRECTED PRN MIGRAINE active Not Available Not Available No t Available prednison e 5 mg tablet Take 1 tablet every day by oral route. 09/04 completed Not Available Not Available Not Available pantopraz ole 40 mg intraveno us solution 12/15 completed Not Available Not Available Not Available venlafaxi ne ER 150 mg capsule,e xtended release 24 hr Take 1 capsule every day by oral route for 90 days. 2024 active Not Available Not Available Not Avai lable Tylenol Arthritis Pain 650 mg tablet,ex tended release Take 2 tablets twice a day by oral route for 90 days. 2024 active Not Available Not Available Not Avai lable topiramat e 25 mg tablet Take 1 tablet every day by oral route in the morning. 04/15 completed Not Available Not Available Not Available metronida zole 500 mg tablet TAKE 1 TABLET BY MOUTH THREE TIMES DAILY FOR 7 DAYS 12/12 completed Not Available Not Available Not Available prochlorp erazine maleate 10 mg tablet TAKE 1 TABLET BY MOUTH THREE TIMES DAILY FOR 7 DAYS NEEDED FOR NAUSEA AND VOMITING 01/08 completed Not Available Not Available Not Available ciproflox acin 500 mg tablet TAKE 1 TABLET BY MOUTH 1 HOUR BEFORE PROCEDUR E active for botox injectio n of bladder and dental procedur es Not Available Not Available Not Available aspirin 81 mg tablet,de layed release Take 1 tablet every day by oral route. 2020 active Not Available Not Available Not Avai lable doxycycli ne monohydra te 100 mg tablet TAKE 1 TABLET BY MOUTH TWICE DAILY FOR 14 DAYS 12/12 completed Not Available Not Available Not Available tramadol 50 mg tablet TAKE 1 TABLET BY MOUTH TWICE DAILY NEEDED active Not Available Not Available No t Available glimepiri de 2 mg tablet TAKE 1 TABLET BY MOUTH DAILY AFTER CORTISON E INJECTIO N AND CONTINUE D UNTIL GLUCOSE IS UNDER 200 RANGE active Not Available Not Available No t Available pantopraz ole 20 mg tablet,de layed release 12/15 completed Not Available Not Available Not Available pravastat in 10 mg tablet TAKE 1 TABLET BY MOUTH EVERYDAY AT BEDTIME active Not Available Not Available No t Available triamcino lone acetonide 0.025 % topical cream JAMES EXT AA BID PRN 10/22 completed Not Available Not Available Not Available methotrex ate sodium 2.5 mg tablet TAKE 8 TABS ONCE WEEKLY 12/12 completed on hold Not Available Not Available Not Available ropinirol e 0.25 mg tablet 12/12 completed Not Available Not Available Not Available ropinirol e 2 mg tablet TAKE 1 TABLET BY MOUTH DAILY 12/12 completed Not Available Not Available Not Available pantopraz ole 40 mg tablet,de layed release TAKE 1 TABLET BY MOUTH TWICE DAILY BEFORE MEALS 2024 active Not Available Not Available Not Avai lable erythromy carol 5 mg/gram (0.5 %) eye ointment APPLY SMALL AMOUNT IN BOTH EYES AT BEDTIME DIRECTED 02/04 completed Not Available Not Available Not Available cyanocoba rigo (vit B-12) 1,000 mcg/mL injection solution ADMINSTE R 1ML IN THE MUSCLE EVERY MONTH active Not Available Not Available No t Available tobramyci n 0.3 % eye drops Instill 1 drop every 4 hours by ophthalm ic route. 02/04 completed Not Available Not Available Not Available syringe (disposab le) 3 mL use to administ er B12 injxn q month 04/21 completed Not Available Not Available Not Available prednison e 50 mg tablet Take 1 tablet every day by oral route for 6 days. 07/15 completed Not Available Not Available Not Available nitroglyc tatum 0.6 mg sublingua l tablet Place 1 tablet every day by sublingu al route for 30 days. 06/08 completed Not Available Not Available Not Available losartan 25 mg tablet TAKE 1 TABLET BY MOUTH EVERY DAY 08/09 completed Not Available Not Available Not Available Tums E-X 300 mg (as calcium carbonate 750 mg) chewable tablet Take 1 tablet every day by oral route. 2020 active for calcium Not Available Not Available Not Available flecainid e 100 mg tablet TAKE 1 TABLET BY MOUTH EVERY 12 HOURS 05/09 completed Not Available Not Available Not Available nitroglyc tatum 0.4 mg sublingua l tablet Place 1 tablet every day by sublingu al route as needed for 30 days. active Not Available Not Available No t Available oxybutyni n chloride ER 5 mg tablet,ex tended release 24 hr Take 1 tablet every day by oral route. 12/15 completed Not Available Not Available Not Available gabapenti n 300 mg capsule TAKE 1 CAPSULE BY MOUTH TWICE DAILY 2024 active Not Available Not Available Not Avai lable raloxifen e 60 mg tablet TAKE 1 TABLET BY MOUTH EVERY DAY 04/21 completed Not Available Not Available Not Available folic acid 1 mg tablet TAKE 1 TABLET BY MOUTH DAILY 06/06 completed Not Available Not Available Not Available codeine 10 mg-guaife nesin 100 mg/5 mL oral liquid TAKE 10 ML BY MOUTH AT BEDTIME NEEDED 08/11 completed Not Available Not Available Not Available lisinopri l 5 mg tablet TAKE 1 TABLET BY MOUTH EVERY DAY active Not Available Not Available No t Available furosemid e 20 mg tablet Take 1 tablet every other day by oral route for 90 days. 06/06 completed Do not take with torsemid e Not Available Not Available Not Available metoprolo l succinate ER 25 mg tablet,ex tended release 24 hr TAKE 1 TABLET BY MOUTH DAILY active Not Available Not Available No t Available lorazepam 1 mg tablet TAKE 1 TABLET BY MOUTH 1 HOUR BEFORE PROCEDUR E AND REPEAT DOSE IN 4 HOURS NEEDED FOR ANXIETY 06/08 completed Not Available Not Available Not Available epinephri ne 0.3 mg/0.3 mL injection , auto-inje ctor INJECT CONTENTS OF 1 SYRINGE (0.3MG) INTO THE MUSCLE DIRECTED active Not Available Not Available No t Available levofloxa carol 750 mg tablet TAKE 1 TABLET BY MOUTH EVERY DAY FOR 5 DAYS active Not Available Not Available No t Available albuterol sulfate HFA 90 mcg/actua tion aerosol inhaler Inhale 2 puffs every 4-6 hours by inhalati on route as needed for 25 days. 08/01 completed Not Available Not Available Not Available ondansetr on 4 mg disintegr ating tablet PLACE 1 TABLET BY TRANSLIN GUAL ROUTE 3 TIMES A DAY NEEDED FOR 10 DAYS active prn Not Available Not Available No t Available doxycycli ne hyclate 100 mg tablet TAKE 1 TABLET BY MOUTH TWICE DAILY 11/02 completed Not Available Not Available Not Available naproxen 500 mg tablet TAKE 1 TABLET BY MOUTH TWICE DAILY NEEDED 2023 active Not Available Not Available Not Avai lable diazepam 5 mg tablet TAKE 1 TABLET BY MOUTH 2 HOURS BEFORE PROCEDUR E. MAY REPEAT 1 TIME 1 HOUR BEFORE PROCEDUR E 08/01 completed Not Available Not Available Not Available ciclopiro x 0.77 % topical gel APPLY TOPICALL Y TO THE AFFECTED AREA DAILY 08/01 completed Not Available Not Available Not Available tobramyci n 0.3 %-dexamet hasone 0.1 % eye drops,nupur pension INSTILL 1 DROP BOTH EYES 4 TIMES DIRECTED 12/01 completed Not Available Not Available Not Available oxycodone 5 mg tablet TAKE 1 TO 2 TABLETS BY MOUTH EVERY 4 HOURS NEEDED FOR PAIN 06/08 completed Not Available Not Available Not Available Asprin Ec Low Dose 81 mg tablet,de layed release Take 1 tablet every day by oral route in the morning for 30 days. 10/22 completed Not Available Not Available Not Available cyclobenz aprine 5 mg tablet TAKE 1 TABLET BY MOUTH EVERY DAY NEEDED active Not Available Not Available No t Available Pepcid AC 20 mg tablet Take 1 tablet twice a day by oral route for 30 days. 04/15 completed Not Available Not Available Not Available topiramat e 50 mg tablet Take 1 tablet every day by oral route at bedtime. 04/15 completed Not Available Not Available Not Available nitrofura ntoin monohydra te/macroc rystals 100 mg capsule TAKE 1 CAPSULE BY MOUTH TWICE DAILY 06/06 completed Not Available Not Available Not Available BD Integra Syringe 3 mL 23 gauge x 1 Take 1 syringe every day by miscell. route for 84 days. 2020 active Not Available Not Available Not Avai lable Vitamin D3 2000iu wkly 10/27 completed Not Available Not Available Not Available rosuvasta tin 12/05 completed Prescrib ed by cardio gist. Not Available Not Available Not Available Enbrel SureClick 50 mg/mL (1 mL) subcutane ous pen injector inject weekly active Not Available Not Available No t Available FreeStyle Lite Meter kit USE DIRECTED active Not Available Not Available No t Available FreeStyle Lite Strips USE TO TEST BLOOD SUGAR THREE TIMES DAILY active Not Available Not Available No t Available cholecalc iferol (vitamin D3) 1,250 mcg (50,000 unit) capsule TAKE 1 CAPSULE BY MOUTH EVERY WEEK 12/12 completed Not Available Not Available Not Available Protonix 40 mg granules delayed-r elease packet Take 40 mg by oral route. 10/22 completed Not Available Not Available Not Available diclofena c 1 % topical gel Apply 1 g every day by topical route for 7 days. 07/20 completed Not Available Not Available Not Available GaviLyte- G 236 gram-22.7 4 gram-6.74 gram-5.86 gram oral solution 07/08 completed Not Available Not Available Not Available Purelax 17 gram/dose oral powder MIX 17 GRAMS IN BEVERAGE & DRINK ONCE DAILY active Not Available Not Available No t Available Vitamin D3 125 mcg (5,000 unit) tablet TAKE 1 TABLET BY MOUTH EVERY DAY 08/01 completed no tolerate Not Available Not Available Not Available ProChambe r USE INSTRUCT ED 05/31 completed Not Available Not Available Not Available buprenorp zayda 10 mcg/hour weekly transderm al patch APPLY 1 PATCH TOPICALL Y TO THE SKIN EVERY WEEK 03/09 completed Not Available Not Available Not Available Vitamin D3 50 mcg (2,000 unit) capsule TAKE 1 CAPSULE BY MOUTH DAILY 2024 active Not Available Not Available Not Avai lable Lotemax 0.5 % eye ointment APPLY SMALL AMOUNT IN EACH EYE AT BEDTIME 05/09 completed Not Available Not Available Not Available Myrbetriq 25 mg tablet,ex tended release TK 1 TS PO ONCE DAILY 07/31 completed Not Available Not Available Not Available Myrbetriq 50 mg tablet,ex tended release TAKE 1 TABLET BY MOUTH EVERY DAY active Not Available Not Available No t Available Probiotic 15 billion cell sprinkle capsule TAKE 1 CAPSULE BY MOUTH EVERY DAY 02/12 completed Not Available Not Available Not Available Breo Ellipta 100 mcg-25 mcg/dose powder for inhalatio n INHALE 1 PUFF BY MOUTH DAILY 12/12 completed Not Available Not Available Not Available buprenorp zayda 15 mcg/hour weekly transderm al patch Apply 1 patch every week by transder mal route for 28 days. 07/05 completed Not Available Not Available Not Available K-Tab 20 mEq tablet,ex tended release Take 1 tablet every day by oral route. 06/10 completed pt stopped due to normal levels Not Available Not Available Not Available Jardiance 10 mg tablet TAKE 1 TABLET BY MOUTH EVERY DAY active Not Available Not Available No t Available Entresto 24 mg-26 mg tablet TAKE 1 TABLET BY MOUTH TWICE DAILY. DISCONTI NUE LOSARTAN 08/11 completed Not Available Not Available Not Available naloxone 4 mg/actuat ion nasal spray CALL 911. SPR CONTENTS OF ONE SPRAYER (0.1ML) INTO ONE NOSTRIL. REPEAT IN 2-3 MIN IF SYMPTOMS OF OPIOID EMERGENC Y PERSIST, ALTERNAT E NOSTRILS active Not Available Not Available No t Available Xiidra 5 % eye drops in a dropperet te INSTILL 1 DROP IN BOTH EYES TWICE DAILY 09/04 completed changed to Vevye Not Available Not Available Not Available Shingrix (PF) 50 mcg/0.5 mL intramusc ular suspensio n, kit ADM 0.5ML IM UTD 10/22 completed Not Available Not Available Not Available Cequa 0.09 % eye drops in a dropperet te Instill 1 drop twice a day by ophthalm ic route. 02/04 completed Not Available Not Available Not Available ergocalci ferol (vitamin D2) 50 mcg (2,000 unit) capsule TAKE 1 CAPSULE BY MOUTH DAILY active Not Available Not Available No t Available Gemtesa 75 mg tablet TAKE 1 TABLET BY MOUTH DAILY 05/31 completed Not Available Not Available Not Available BinaxNOW COVID-19 Ag Self Test kit TEST DIRECTED TODAY 05/31 completed Not Available Not Available Not Available Paxlovid 150 mg-100 mg tablets in a dose pack (Moderate Renal Dose) TAKE 2 TABLETS BY MOUTH TWICE DAILY FOR COVID HOLD FLECANID E AND TRAMADOL AND LIMIT TRAZODON E 03/01 completed Not Available Not Available Not Available Mounjaro 7.5 mg/0.5 mL subcutane ous pen injector INJECT 7.5 MG SUBCUTAN EOUSLY WEEKLY active Not Available Not Available No t Available Mounjaro 5 mg/0.5 mL subcutane ous pen injector INJECT 5 MG SUBCUTAN EOUSLY WEEKLY 05/22 completed Not Available Not Available Not Available Mounjaro 2.5 mg/0.5 mL subcutane ous pen injector INJECT 2.5 MG SUBCUTAN EOUSLY WEEKLY 04/19 completed Not Available Not Available Not Available Lagevrio 200 mg capsule (EUA) TAKE 4 CAPSULES BY MOUTH EVERY 12 HOURS FOR 5 DAYS 12/09 completed Not Available Not Available Not Available Ozempic 0.25 mg or 0.5 mg (2 mg/3 mL) subcutane ous pen injector INJECT 0.5MG SUBCUTAN EOUSLY EVERY WEEK 03/19 completed Not Available Not Available Not Available Vevye 0.1 % eye drops INSTILL 1 DROP INTO BOTH EYE TWICE DAILY active Not Available Not Available No t Available Vitals Date Recorded Body height Provider Name an d Address Organization Details Last Updated DateTime 02/20/2024 167.64 cm Kathryn Jay LPN [facility] 02/20/2024 13:17:36 Date Recorded Body height Systolic blood pressure Diastolic blood pressure Provider Name and Address Organization Details Last Updated DateTime 03/01/2024 167.64 cm 134 mm[Hg] 86 mm[Hg] Kathryn Jay LPN [facility] 03/01/2024 14:44:45 Date Recorded Body height Body mass index (BMI) Body weight Heart rate Oxygen saturation Oxygen saturation in Arterial blood by Pulse oximetry Body temperature Oxygen saturation Oxygen saturation in Arterial blood by Pulse oximetry Systolic blood pressure Diastolic blood pressure Provider Name and Address Organization Details Last Updated DateTime 167.64 cm 37 kg/m2 767710. 65 g 60 /min 91 % 91 % 97.6 [degF] 97 % 97 % 137 mm[Hg] 77 mm[Hg] Magdalena schultz MA [facility] 10:16:35 Date Recorded Body height Provider Name an d Address Organization Details Last Updated DateTime 04/19/2024 167.64 cm Laura Cantu MA [facility] 04/19/2024 14:48:22 Social History Question Answer Notes LastModified by Organizat ion Details LastModified Time Tobacco Smoking Status [facility] 13:18:19 Do You Have An Advance Directive? Yes HCP Is Jose Arguetay (brother); [facility] [email or web address] Information not available 01/19/2022 Is Blood Transfusion Acceptable In An Emergency? Yes Information not available 03/10/2017 What Is Your Level Of Caffeine Consumption? Moderate 1-2 Servings Of Coffee Daily. Tea Decaf Ice Tea [email or web address] Information not available 09/01/2022 How Much Tobacco Do You Chew? None Information not available 03/10/2017 What Type Of Diet Are You Following? REGULAR Information not available 03/10/2017 Which Illicit Or Recreational Drugs Have You Used? None Information not available 03/10/2017 Live Alone Or With Others? Alone [email or web address] Information not available 01/19/2022 Do You Take Precautions To Prevent Distracted Driving? Yes Information not available 03/10/2017 How Often Do You Need To Have Someone Help You When You Read Instructions, Pamphlets, Or Other Written Material From Your Doctor Or Pharmacy? Never Information not available 03/10/2017 Have You Served In The ? No Information not available 03/10/2017 Have You Or Anyone In Your Household Had Any Of The Following Symptoms In The Last 14 Days: Sore Throat, Cough, Chills, Body Aches For Unknown Reasons, Shortness Of Breath For Unknown Reasons, Loss Of Smell, Loss Of Taste, Fever At Or Greater Than 100 Degrees Fahrenheit? No [email or web address] Information not available 10/23/2019 Are You Or Anyone In Your Household A Health Care Provider Or Emergency Responder? No [email or web address] Information not available 10/23/2019 To The Best Of Your Knowledge Have You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 [address] 03/24/2022 10:20:56 03/24/2022 10:57:44 Renal disorder due to type 2 diabetes mellitus 621103701 E11.22 Pt. is doing very well with jardiance 10 mg. Will continue medic. and repeat bmp in 3 m. Chronic ki dney disease stage 3A 214841184 N18.31 continue losartan and jardiance [id number] Nghia Vieira MD Main Office [address] [place] [address] 05/18/2022 15:35:58 05/18/2022 16:30:26 Chronic pain syndrome 931310536 G89.4 She has been on pain meds since around 2013. Her pain is primarily from spinal stenosis/L BP and fibromyalg ia. She has good days and bad days. She gets fluoroscop ic-guided injections from [facility] which help. She can get 4 per year. She has CHF and it is currently under poor control and has caused an increase in her pain over the last couple of months Chronic di astolic heart failure 093997680 I50.32 Her CHF has recently been under poor control and this has exacerbate d her chronic pain. [id number] Leonides Jensen MD Main Office [address] [place] [address] 06/23/2022 10:04:15 06/23/2022 10:48:18 Renal disorder due to type 2 diabetes mellitus 822907519 E11.22 Pt. is doing very well with jardiance 10 mg. Will continue medic. and repeat bmp, f/u 3 m. Chronic ki dney disease stage 3A 272549404 N18.31 continue jardiance Hypertensi ve renal disease 77135785 I12.9 repeat magnesium and bmp, let cardiology know blood pressure runs low with dizziness. Metoprolol likely needs to be stopped. Pt. advised to hydrate and wear compressio n daily. [id number] Crispin Echols MD Main Office 3640 [facility] 207 [facility] [place] [address] 07/08/2022 15:32:41 07/08/2022 16:47:56 Cough 49018199 R05.9 [place] [facility] [place] ~ 40% better on doxy & pred 50mg - tessalon was declined, not sleeping well d/t cough - will give rock AC hs prn see below f/u next week - if no sig improvemen t then consider cxr, pulm eval Pneumonia 604728232 J18. 9 stop doxy, change to levaquinre commend probiotics while on abx Acute bronchitis 7489588 2 J20.9 will give further pred, but as a taperrec add spacer to prn alb [id number] Crispin Echols MD Main Office [address] [facility] [address] [facility] [place] [address] 07/15/2022 13:39:49 07/15/2022 14:54:11 Pneumonia 049780768 J18.9 stop doxy, change to levaquinre commend probiotics while on abx 6.8.23 - sxs only ~ 20% better as per pt - but pt able to talk/speak in complete sentences sig better than last week - will check cxr, finished levaquin yesterday, almost done c pred taper (on 20mg) - finish as dir, less coughing c rock AC, cont prn alb === rx c add'l abx if cxr + for pna Heart fail ure with normal ejection fraction 883514589 I50.31 s/p recent admission, diuresed, changed parameters of her torsemide - 40mg in am c 20mg at noon prn 2-3 lb wt gain pending see card 2.10 - check bmp c cc: card prior 07.30 - last seen by card ~ 2 months ago, did consider seeing pulm (didn't say in 04.29 note) - see above/belo w Dyspnea on exertion 6084 5006 R06.09 see above - persists, will get pulm eval ---- ? has restrictiv e lung dz??? no h/o smoking and no h/o asthma/endoscopy support specialist d [id number] Nghia Vieira MD Main Office 3640 [facility] 207 [place] [address] 08/11/2022 14:59:47 08/11/2022 15:35:46 Chronic pain syndrome 458096817 G89.4 She has been on pain meds since around 2013. Her pain is primarily from spinal stenosis/L BP and fibromyalg ia. She has good days and bad days. She gets fluoroscop ic-guided injections from [facility] which help. She can get 4 per year. She has been taking more pain meds which no longer seem to be helping with her pain at night. We will refer her to a pain specialist for and evaluation and input concerning an appropriat e regimen. Spinal elaine nosis of lumbar region 07302947 M48.061 Fibromyalgia 131136505 M 79.7 [id number] Crispin Echols MD Main Office [address] [facility] 207 [place] [address] 09/01/2022 14:25:34 09/01/2022 15:46:45 Adult health examination 285781146 Z00.00 mammo utd, pending colon ? next month Chronic pain syndrome 37 1526470 G89.4 cont to f/u c [facility] She has been on pain meds since around 2013. Her pain is primarily from spinal stenosis/L BP and fibromyalg ia. She has good days and bad days. Some days she takes no tramadol and other days she takes 3 tabs. 08.29 - [facility] put in referral to pain management - encouraged pt to call them, cont f/u c pssp for bubba injxn in lower back Iron defic iency anemia 14410159 D50.9 cont f/u c hem/onc prn - gets occ [place] [facility] [place] . - seen by hem/onc recently - stable iron levels - no need for infusion Screening for malignant neoplasm of cervix 703978961 Z12.4 encouraged pt to call engineer of system development for pap Heart fail ure with normal ejection fraction 345412695 I50.31 s/p recent admission, diuresed, changed parameters of her torsemide - 40mg in am c 20mg at noon prn 2-3 lb wt gain pending see card 2.10 - check bmp c cc: card prior 07.30 - last seen by card ~ 2 months ago, did consider seeing pulm (didn't say in 04.29 note) - see above/belo w 08.29 - stable, cont f/u c card Dyspnea on exertion 6084 5006 R06.09 see above - persists, will get pulm eval ---- ? has restrictiv e lung dz??? no h/o smoking and no h/o asthma/endoscopy support specialist d 08.29 - pending see pulm in 12.30, cont prn alb Major depr essive disorder 591014512 F32.0 worse phq score d/t recent illness in family members (situation al) - typically scores low - cont med (venl) as dir, consider calling [address] [place] [address] - handout given - to talk c therapist == if persists/w orse, then consider increase in med Chronic ki dney disease stage 3A 877473495 N18.31 stable Hyperlipidemia 09212826 E78.5 cont statin, cont f/u c card Hypertensi ve renal disease 93243915 I12.9 bp stable, cont meds as dir, cont f/u c card Renal diso rder due to type 2 diabetes mellitus 339591479 E11.22 Pt. is doing very well with jardiance 10 mg. Will continue meds as dirf/u c VM next month Vitamin D deficiency 347 19451 E55.9 cont supp as dir, pending recheck in 6 wks Body mass index 40+ - severely obese 154254721 E66.01 Z68.41 [id number] Crispin [facility]ols MD [facility] [address] [place], [place] [address] 11/02/2022 10:39:31 11/02/2022 13:00:56 Anxiety state 541132563 F41.1 navid peaking - has pending vein surgeries next wk and next month - cont venl as dir, has great support system at home (boyfriend , 2 best friends) - declines counsellor 9. - see below Major depr essive disorder 827155325 F32.0 worse phq score d/t recent illness in family members (situation al) - typically scores low - cont med (venl) as dir, consider calling [address] [place] [address] - handout given - to talk c therapist == if persists/w orse, then consider increase in med 9. - navid/phq better, sister feeling better, progress c pain med - see below, cont meds as dir Cellulitis of right lower limb 3045836335 9439574 L03.115 seen by neos last month - gave abx - but still swollen - went to ER - doppler u/s negative for dvt, but ? found to have tenosynovi tis - she since seen by card - rec nsaids - taking ibu 400mg q 6 hours, cont elevate, warm compress, bengay - still somewhat painful - ? has superficia l thrombophl ebitis - so will give trial of naproxen 500mg - stop when better Gastroesop hageal reflux disease 745915989 K21.9 gi stopped her ppi, changed to carafate - but has had diarrhea - see below pending egd later this month 9. - cont ppi bid d/t nsaids above Chronic pain syndrome 37 7141877 G89.4 cont to f/u c [facility] She has been on pain meds since around 2013. Her pain is primarily from spinal stenosis/L BP and fibromyalg ia. She has good days and bad days. Some days she takes no tramadol and other days she takes 3 tabs. 7. - [facility] put in referral to pain management - encouraged pt to call them, cont f/u c pssp for bubba injxn in lower back 9. - pending spinal cord stimulator Renal diso rder due to type 2 diabetes mellitus 644624252 E11.22 Pt. is doing very well with jardiance 10 mg. Will continue meds as dirf/u c VM next month 9.23 - a1c down to 6.0 - cont meds as dir Chronic ki dney disease stage 3A 891567609 N18.31 stable Hyperlipidemia 08566440 E78.5 cont statin, cont f/u c card . - ldl 70, stable - cont pravastati n but CK mildly elevated at 215 - encouraged cont plenty of water, and recheck CK ac see card in 01.29 Dyspnea on exertion 6084 5006 R06.09 see above - persists, will get pulm eval ---- ? has restrictiv e lung dz??? no h/o smoking and no h/o asthma/endoscopy support specialist d 08.29 - pending see pulm in 12.30, cont prn alb . - pt is on cancellati on list for pulm - cont call them 2x/wk, pending scheduled for 12.23.22 Heart fail ure with normal ejection fraction 349039014 I50.31 s/p recent admission, diuresed, changed parameters of her torsemide - 40mg in am c 20mg at noon prn 2-3 lb wt gain pending see card 2.10 - check bmp c cc: card prior 07.30 - last seen by card ~ 2 months ago, did consider seeing pulm (didn't say in 04.29 note) - see above/belo w 10.30 - rev recent card note in pvix - ~ stable, cont f/u c card, next in 3 months [id number] Leonides Jensen MD Main Office [address] [place] [address] 11/09/2022 12:53:32 11/09/2022 13:49:17 Renal disorder due to type 2 diabetes mellitus 484980448 E11.22 Pt. is doing very well with jardiance 10 mg. Will continue medic. and repeat A1c in 3-4 m. Chronic ki dney disease stage 3A 540371351 N18.31 continue jardiance 10 mg and restart renal dose of losartan 25 mg. Hypertensi ve renal disease 77185086 I12.9 Losartan was discontinu ed in the hospital and was not restarted. WE will restart at 25 mg dose. Pt. was advised to monitor bp at home and increase hydration. Diabetic p eripheral neuropathy 954102232 E11.40 refer to radiology transcriptionist for regular foot and nail care plus diabetic shoues are advised to wear. [id number] Nghia Vieira MD Main Office 3640 [facility] 207 [facility] [address] 12/29/2022 09:00:25 12/29/2022 09:55:30 Chronic pain syndrome 764331440 G89.4 She has been on pain meds since around 2013. Her pain is primarily from spinal stenosis/L BP and fibromyalg ia. She has good days and bad days. She gets fluoroscop ic-guided injections from [facility] which help. She can get 4 per year. She has been taking more pain meds which no longer seem to be helping with her pain at night. She was seen by pain mgmt in [place] and was diagnosed with a right ankle fracture of unclear duration. boot has been ordered but she is still waiting for this to come in. No recommenda tions were made for meds. I will refer her to Dr Serra for help with meds to help to control her pain. Needs infl uenza immunization 472590343 Z23 Pain of ri ght ankle joint 8620222363 1915890 M25.571 Waiting on a walking boot. Will avoid oral steroids given her diabetes. May benefit from an injection at [facility]. [id number] Crispin Echols MD Main Office 36[address] [facility] 207 [facility] [place] [address] 03/09/2023 12:59:44 03/09/2023 14:04:08 Anxiety state 156679764 F41.1 navid peaking - has pending vein surgeries next wk and next month - cont venl as dir, has great support system at home (boyfriend , 2 best friends) - declines counsellor 1.24 - stable, see above Major depr essive disorder 781306851 F32.0 worse phq score d/t recent illness in family members (situation al) - typically scores low - cont med (venl) as dir, consider calling [address] [place] [address] - handout given - to talk c therapist == if persists/w orse, then consider increase in med 9.23 - navid/phq better, sister feeling better, progress c pain med - see below, cont meds as dir 1.24 - stable, cont meds as dir Hypertensi ve renal disease 98936208 I12.9 bp stable, cont meds as dir, cont f/u c card - next in 04.30 Dyspnea on exertion 6084 5006 R06.09 see above - persists, will get pulm eval ---- ? has restrictiv e lung dz??? no h/o smoking and no h/o asthma/endoscopy support specialist d 08.29 - pending see pulm in 12.30, cont prn alb . - pt is on cancellati on list for pulm - cont call them 2x/wk, pending scheduled for 12.23.2203.02 - seen by pulm - next in 05.31, had nl pft's - ? d/t chf vs obesity - rec wt loss, ? get sleep study? would benefit from aquatherap y - may help c chronic pain and improve endurance/ lung function Pain in right foot 46687 89627 24466 M79.671 apparently had spiral fx - seen by pain - never got walking boot, then seen by podiatry and physiatry - cont f/u c them, ? will get AFO Chronic ki dney disease stage 3A 479769477 N18.31 stable Heart fail ure with normal ejection fraction 039857296 I50.31 s/p recent admission, diuresed, changed parameters of her torsemide - 40mg in am c 20mg at noon prn 2-3 lb wt gain pending see card 2.10 - check bmp c cc: card prior 07.30 - last seen by card ~ 2 months ago, did consider seeing pulm (didn't say in 04.29 note) - see above/belo w 10.30 - rev recent card note in pvix - ~ stable, cont f/u c card, next in 3 months 03.02 - cont f/u c card - next 04.30 Chronic pain syndrome 37 9057485 G89.4 cont to f/u c [facility] She has been on pain meds since around 2013. Her pain is primarily from spinal stenosis/L BP and fibromyalg ia. She has good days and bad days. Some days she takes no tramadol and other days she takes 3 tabs. . - [facility] put in referral to pain management - encouraged pt to call them, cont f/u c pssp for bubba injxn in lower back 10.30 - pending spinal cord stimulator 03/02 - cont meds as dir, f/u c pmr Fibromyalgia 203092077 M 79.7 better lately as per pt - cont meds as dir - venlafaxin e / gbn, cont f/u c rheum 03.02 - no like tizanidine , will change to prn flexeril - tried her friends - it worked better [id number] Nghia Vieira MD [facility] [address], [place] [address] 03/24/2023 13:10:34 03/24/2023 16:21:41 Chronic pain syndrome 657486363 G89.4 She has been on pain meds since around 2013. Her pain is primarily from spinal stenosis/L BP and fibromyalg ia. She has good days and bad days. She was getting fluoroscop ic-guided injections from [facility] which were helping. She can get 4 per year. She had been taking pain meds which were no longer helping with her pain at night. I referred her to Dr Serra for help with meds to help to control her pain. She was first seen last November and was started on a buprenorph ine 10 mg patch which helped a great deal. She was seen in / and this was increased to 15 mg which gave her even more pain relief. Since starting the patch she has only had to use tramadol a few times per week. She developed more fatigue with the increased dose but did not want to go down because it was working well. She instead decreased her gabapentin dose to 1 in the am, 2 in the pm and 3 at bedtime and this lessened her fatigue. She may cut back by 1 more dose under the direction of Dr Serra. She uses a tegaderm patch to keep the buprenorph ine on. In addition she also received a left hip steroid injection for bursitis. She will follow with Dr Serra and I will decrease her appointmen ts to every 6 months with me. [id number] BETSY BERGER MD Main Office [address], [place] [address] 05/10/2023 13:14:19 05/10/2023 14:11:22 Renal disorder due to type 2 diabetes mellitus 872661947 E11.22 N18.2 Stable diabetes on jardiance 10 mg, but high cardiovasc ular risk due to obesity. WE will add Ozempic 0.25 mg for first 4 weeks, then 0.5 mg weekly thereafter . F/u 3 m. WE discussed possible side effects of constipati on, GERD, nausea. recheck microalbum in. Chronic ki dney disease stage 3A 186499476 N18.31 continue jardiance 10 mg and renal dose of losartan 25 mg. Hypertensi ve renal disease 04364419 I12.9 stable hypertensi on. Body mass index 40+ - severely obese 928834635 Z68.42 see above. pt. is unable to lose weight due to RA and increase appetite. She will benefit from start of GLP-1 for weight and her diabetes due to cardiovasc ular data available. F/u 3 m. [id number] Crispin Echols MD Telehealt [facility] 36[address] [facility] [address] [facility] [place] [address] 06/07/2023 09:13:09 06/07/2023 11:09:58 Dyspnea on exertion 14184553 R06.09 see above - persists, will get pulm eval ---- ? has restrictiv e lung dz??? no h/o smoking and no h/o asthma/endoscopy support specialist d . - pending see pulm in 12.30, cont prn alb 9. - pt is on cancellati on list for pulm - cont call them 2x/wk, pending scheduled for 12.23.22 1.24 - seen by pulm - next in 05.31, had nl pft's - ? d/t chf vs obesity - rec wt loss, ? get sleep study? would benefit from aquatherap y - may help c chronic pain and improve endurance/ lung function .24 - not seen by PT yet, pending start aquatherap ycont f/u c pulm - he had sent her back for repeat sleep study, see below - next f/u c pulm in a few wks Heart fail ure with normal ejection fraction 100553013 I50.31 s/p recent admission, diuresed, changed parameters of her torsemide - 40mg in am c 20mg at noon prn 2-3 lb wt gain pending see card 2.10 - check bmp c cc: card prior 6.23 - last seen by card ~ 2 months ago, did consider seeing pulm (didn't say in 04.29 note) - see above/belo w . - rev recent card note in pvix - ~ stable, cont f/u c card, next in 3 months 1.24 - cont f/u c card - next 3. 4.24 - stable, cont f/u c card - losartan & isosorbide on hold & cut met. in half d/t low bp - next f/u 9. Fatigue 91255352 R53.83 see above / below Mixed sleep apnea 939403 001 G47.39 had mild sanjana on sleep study 1.20 - seen by sleep specialist 3.20 - pt defers cpap for now, will consider trying otc MAD and attempt to lose wt 4.24 - had updated sleep study - found to have mixed sleep apnea (? SE of bup patch - central sleep apnea and low bp above - but pt is benefiting > SE's, so she wishes to cont bup patch as dir by PMR) Hyperparathyroidism 6699 9008 E21.1 found by rheum, referred to endo - eval turned away d/t repeat pth wnl? likely secondary hyperparat hyroidism d/t severely low vit drecheck p get vit d supp as below Vitamin D deficiency 347 34863 E55.9 cont supp as dir, pending recheck in 6 wks4.24 - pt gets nauseous from 50k vit d, so will change to 5k qdpending recheck p 6.1.24 Nausea [id number] R11.0 pt requested refill of prn zofran Chronic constipation [address] a/p c uro - no calculus - but has + moderate amount of fecal retention? this is etiology of nausea and occ overflow diarrhea?r ec miralax 1/2-1 scoop qd-qod [id number] Crispin Echols MD Telehealt [facility] [address] [facility] [address] [facility] [place] [address] 08/02/2023 12:42:38 08/02/2023 15:27:26 Hyperparathyroidism 02770292 E21.1 found by rheum, referred to endo - eval turned away d/t repeat pth wnl? likely secondary hyperparat hyroidism d/t severely low vit drecheck p get vit d supp as below 6.24 - rec'd letter from endo - rec vit d 50k q wk x 3 months, then take vit d 2000iu qdcheck labs in 1 month to include bmp, pth, vit d, albumincon t tums (750mg calcium) bid & prn Vitamin D deficiency 347 24241 E55.9 cont supp as dir, pending recheck in 6 wks 4.24 - pt gets nauseous from 50k vit d, so will change to 5k qdpending recheck p 6.1.24 6.24 - see above, ask pharmacist about different formulatio n or how to take med so she can tolerate it better Osteoporosis 53764046 M8 1.0 cont med, f/u c endo 6.24 - cont tums (750mg calcium) bid & prn [id number] Crispin Echols MD Main Office [address] [facility] [address] [place] [address] 08/10/2023 09:02:48 08/10/2023 09:55:14 Renal disorder due to type 2 diabetes mellitus 505861049 E11.22 Stable diabetes on jardiance 10 mg, but high cardiovasc ular risk due to obesity. Ozempic started in May. Pt. tolerates it well. Lost 22 lbs in 3 months. Recommend to continue current treatment. WE discussed increasing fluids and fiber, eating 3 meals low calorie per day. Repeat bmp and magnesium. F/u 4 m. Chronic ki dney disease stage 3A 740399603 N18.31 continue jardiance 10 mg , stop losartan 25 mg due to being light headed. F/u with renal. Heart fail ure with normal ejection fraction 500845545 I50.31 Pt. is on torsemide and jardiance. WE will retest bmp and magnesium. [id number] Crispin Echols MD Main Office [address] [facility] [address] [place] [address] 09/05/2023 11:02:57 09/05/2023 12:28:59 Adult health examination 259076415 Z00.00 mammo utd & last breast bx normal, colon utd Pain in right foot 18586 73637 47775 M79.671 apparently had spiral fx - seen by HH pain - never got walking boot, then seen by podiatry and physiatry - cont f/u c them, ? will get AFO 7.24 - stable - cont brace, f/u c radiology transcriptionist Hypertensi ve renal disease 85782816 I12.9 bp fairly stable, cont meds as dir, cont f/u c card - rec increase water intake to help prevent occ orthostasi s Hyperlipidemia 85890875 E78.5 cont statin, cont f/u c card 9. - ldl 70, stable - cont pravastati n but CK mildly elevated at 215 - encouraged cont plenty of water, and recheck CK ac see card in 01.29 Heart fail ure with normal ejection fraction 382395964 I50.31 s/p recent admission, diuresed, changed parameters of her torsemide - 40mg in am c 20mg at noon prn 2-3 lb wt gain pending see card 2.10 - check bmp c cc: card prior 07.30 - last seen by card ~ 2 months ago, did consider seeing pulm (didn't say in 04.29 note) - see above/belo w . - rev recent card note in pvix - ~ stable, cont f/u c card, next in 3 months 1.24 - cont f/u c card - next 3.24 4.24 - stable, cont f/u c card - losartan & isosorbide on hold & cut met. in half d/t low bp - next f/u 9.24 Renal diso rder due to type 2 diabetes mellitus 065723999 E11.22 Continue quarterly follow-up of serum creatinine , blood pressure, glycemic control. Referral to renal as indicated. 7.24 - stable on ozempic, cont f/u c VM Chronic ki dney disease stage 3A 910436394 N18.31 stable Salomon's esophagus 3029 38286 K22.70 cont meds as dir by gi, cont f/u c gi Screening for malignant neoplasm of cervix 587903483 Z12.4 encouraged pt to call engineer of system development for pap Seronegati ve rheumatoid arthritis 278908180 M06.00 stable, cont med - enbrel wkly - helpful, cont f/u c rheum Chronic pain syndrome 37 1370257 G89.4 cont to f/u c [facility] She has been on pain meds since around 2013. Her pain is primarily from spinal stenosis/L BP and fibromyalg ia. She has good days and bad days. Some days she takes no tramadol and other days she takes 3 tabs. 7. - [facility] put in referral to pain management - encouraged pt to call them, cont f/u c pssp for bubba injxn in lower back 9. - pending spinal cord stimulator 08/30 - cont meds as dir, f/u c pmr Major depr essive disorder 674022174 F32.0 worse phq score d/t recent illness in family members (situation al) - typically scores low - cont med (venl) as dir, consider calling [address] [place] [address] - handout given - to talk c therapist == if persists/w orse, then consider increase in med 9. - navid/phq better, sister feeling better, progress c pain med - see below, cont meds as dir 7.24 - stable, cont meds as dir, no see therapist - has strong social support of friends Vitamin D deficiency 347 48394 E55.9 cont supp as dir, pending recheck in 6 wks 4.24 - pt gets nauseous from 50k vit d, so will change to 5k qdpending recheck p 6.1.24 6.24 - see above, ask pharmacist about different formulatio n or how to take med so she can tolerate it better 7.24 - stable level, tolerating med - cont as dir Restrictiv e lung disease 71846105 J98.4 stable, cont inhaler as dir, cont f/u c pulm Body mass index 40+ - severely obese 815202410 E66.01 Z68.41 Fatigue 82232939 R53.83 see above / below Iron defic iency anemia 78025814 D50.9 cont f/u c hem/onc prn - [place] [facility] [place] - seen by hem/onc recently - stable iron levels - no need for infusion Mixed sleep apnea 048818 001 G47.39 had mild sanjana on sleep study 1.20 - seen by sleep specialist 3.20 - pt defers cpap for now, will consider trying otc MAD and attempt to lose wt 4.24 - had updated sleep study - found to have mixed sleep apnea (? SE of bup patch - central sleep apnea and low bp above - but pt is benefiting > SE's, so she wishes to cont bup patch as dir by PMR) 7.24 - starting cpap tonight [id number] Crispin Echols MD Main Office [address] [address] [place] [address] 12/13/2023 10:00:15 12/13/2023 10:43:40 Renal disorder due to type 2 diabetes mellitus 226480314 E11.22 Hemoglobin A1C 5.4% today. On jardiance 10 mg, but high cardiovasc ular risk due to obesity. Ozempic started in May with significan t weight loss of 37 lbs. . Pt. tolerates it well. Recommend to continue current treatment. We discussed increasing fluids and fiber, eating 3 meals low calorie per day. F/u 4 m. Chronic ki dney disease stage 3A 434419052 N18.31 Continue jardiance 10 mg. losartan 25 mg was discontinu ed due to light headedness . Hypertensi ve renal disease 97833256 I12.9 stable hypertensi on. continue low sodium diet . Recommend to test blood pressure at home 2-3 times weekly. [id number] Crispin Echols MD Main Office [address] [address] [place] [address] 01/09/2024 08:19:47 01/10/2024 12:37:47 [id number] Crispin Echols MD Main Office [address] [address] [place] [address] 01/10/2024 11:04:13 01/10/2024 12:02:00 Viral gastroenteritis 160444463 A08.4 s/p ER, then seen by gi as outpt, then recent admission x 3-4 days = negative w/u, including ct scan a/p as per dc summaryrec f/u c gi - next f/u in ~ 2 months Heart fail ure with normal ejection fraction 932084808 I50.31 s/p recent admission, diuresed, changed parameters of her torsemide - 40mg in am c 20mg at noon prn 2-3 lb wt gain pending see card 2.10 - check bmp c cc: card prior 6.23 - last seen by card ~ 2 months ago, did consider seeing pulm (didn't say in 04.29 note) - see above/belo w 10.30 - rev recent card note in pvix - ~ stable, cont f/u c card, next in 3 months . - cont f/u c card - next 04.30. - stable, cont f/u c card - losartan & isosorbide on hold & cut met. in half d/t low bp - next f/u 10.31 - stable, cont meds as dir, cont f/u c card - next on 01.19.24 Hypokalemia 35881492 E87 .6 potassium stabilized at hospital by dc - recheck next week Nausea 790870285 R11.0 has plenty of prn zofran left Iron defic iency anemia 89240580 D50.9 cont f/u c hem/onc prn - gets occ [place] [facility] [place] 08.29 - seen by hem/onc recently - stable iron levels - no need for infusion Transition from acute care to self-care [id number] 76767 Z76.89 Solitary n odule of lung 822607824 R91.1 in pvix - as per ct a/p 11.25.23 - radiologis t recommende d [address] chest to assess for stability ---- 02/2024 [id number] Crispin Echols MD Main Office [address] [place] [address] 02/13/2024 13:30:41 02/13/2024 14:18:52 Chronic pain syndrome 069858012 G89.4 cont to f/u c [facility] She has been on pain meds since around 2013. Her pain is primarily from spinal stenosis/L BP and fibromyalg ia. She has good days and bad days. Some days she takes no tramadol and other days she takes 3 tabs. 08.29 - [facility] put in referral to pain management - encouraged pt to call them, cont f/u c pssp for bubba injxn in lower back 10.30 - pending spinal cord stimulator 08/30 - cont meds as dir, f/u c pmr 1.25 - pt fol by pmr - reviewed note - deferred back to pcp since pt has been stable on bup. 15mcg q wk x few months, cont gbn 300mg bid, rarely uses prn tramadolf/ u c AJ next month Chronic constipation [address] a/p c uro - no calculus - but has + moderate amount of fecal retention? this is etiology of nausea and occ overflow diarrhea?r ec miralax 1/2-1 scoop qd-qod 1.25 - stable on miralax Heart fail ure with normal ejection fraction 012899578 I50.31 s/p recent admission, diuresed, changed parameters of her torsemide - 40mg in am c 20mg at noon prn 2-3 lb wt gain pending see card 2.10 - check bmp c cc: card prior 07.30 - last seen by card ~ 2 months ago, did consider seeing pulm (didn't say in 04.29 note) - see above/belo w 10.30 - rev recent card note in pvix - ~ stable, cont f/u c card, next in 3 months 1.24 - cont f/u c card - next 04.30 4.24 - stable, cont f/u c card - losartan & isosorbide on hold & cut met. in half d/t low bp - next f/u . 12. 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 Referral to renal as indicated. 7.24 - stable on ozempic, cont f/u c VM 1.25 - has been off ozempic x few months d/t SE - recheck a1c ac f/u c VM in 3.25 Solitary n odule of lung 086114254 R91.1 in pvix - as per ct a/p 11.24.24 - radiologis t recommende d [address] chest to assess for stability ---- 02/28/2024 [id number] Aric Espitia MD [facility] [address] [place] [address] 02/20/2024 12:44:57 02/20/2024 14:10:09 COVID-19 857441589 U07.1 [id number] Nghia Vieira MD [facility] [address] [address] [place] [address] 03/01/2024 13:46:53 03/01/2024 15:35:48 Chronic pain syndrome 846949148 G89.4 She has been on pain meds since around 2013. Her pain is primarily from spinal stenosis/L BP and fibromyalg ia. She has good days and bad days. She was getting fluoroscop ic-guided injections from [facility] which were helping. She can get 4 per year. She had been taking pain meds which were no longer helping with her pain at night. I referred her to Dr Serra for help with meds to help to control her pain. She was first seen last November 2022 and was started on a buprenorph ine 10 mg patch which helped a great deal. She was seen in f/u and this was increased to 15 mg which gave her even more pain relief. Since starting the patch she has only had to use tramadol a few times per week. She developed more fatigue with the increased dose but did not want to go down because it was working well. She instead decreased her gabapentin dose to 1 in the am, 2 in the pm and 3 at bedtime and eventually went down to 1 in the am and in at bedtime. She uses a tegaderm patch to keep the buprenorph ine on. In addition she also received a left hip steroid injection for bursitis. She will now get her meds from here and will return to Dr Serra as needed. [id number] Nghia Vieira MD Main Office [address] [address] [place] [address] 04/11/2024 10:06:10 04/11/2024 10:54:05 Renal disorder due to type 2 diabetes mellitus 991731668 E11.22 Hemoglobin A1C 6.0% today. On jardiance 10 mg, but high cardiovasc ular risk due to obesity. 2.5 mg started in February, increasing dose to 5 mg to help weight loss. Recommend to continue current treatment. We discussed increasing fluids and fiber, eating 3 meals low calorie per day. F/u 3 m. Chronic ki dney disease stage 3A 625968101 N18.31 Continue jardiance 10 mg. losartan 25 mg was discontinu ed due to light headedness . Body mass index 40+ - severely obese 912861123 E66.01 Z68.41 see above. pt. is unable to lose weight due to RA and increase appetite. She will benefit from start of GLP-1 for weight and her diabetes due to cardiovasc ular data available. F/u 3 m. [id number] Nghia Vieira MD [facility] 36[address] [facility] [address] [facility] [place] [address] 04/19/2024 13:01:14 04/19/2024 15:43:47 Chronic pain syndrome 490199545 G89.4 She has been on pain meds since around 2013. Her pain is primarily from spinal stenosis/L BP and fibromyalg ia. She has good days and bad days. She was getting fluoroscop ic-guided injections from [facility] which were helping. She can get 4 per year. She had been taking pain meds which were no longer helping with her pain at night. I referred her to Dr Serra for help with meds to help to control her pain. She was first seen last November 2022 and was started on a buprenorph ine 10 mg patch which helped a great deal. She was seen in f/u and this was increased to 15 mg which gave her even more pain relief. Since starting the patch she has only had to use increasing ly lower doses of tramadol and only used 2 doses over the last month. She instead has been taking tylenol 650 mg 2 tablets twice daily. She developed more fatigue with the increased dose but did not want to go down because it was working well. She instead decreased her gabapentin dose from 9 tablets daily to 1 tablet twice a day. She uses a tegaderm patch to keep the buprenorph ine on. She will now get her meds from here and will return to Dr Serra as needed. [id number] Nghia Vieira MD [facility] [address] [facility] [address] [place] [address] 05/31/2024 13:06:47 05/31/2024 15:31:22 Chronic pain syndrome 156712155 G89.4 She has been on pain meds since around 2013. Her pain is primarily from spinal stenosis/L BP and fibromyalg ia. She has good days and bad days. She was getting fluoroscop ic-guided injections from [facility] which were helping. She can get 4 per year. She had been taking pain meds which were no longer helping with her pain at night. I referred her to Dr Serra for help with meds to help to control her pain. She was first seen last November 2022 and was started on a buprenorph ine 10 mg patch which helped a great deal. She was seen in f/u and this was increased to 15 mg which gave her even more pain relief. Since starting the patch she has only had to use increasing ly lower doses of tramadol and only used 2 doses over the last month. She instead has been taking tylenol 650 mg 2 tablets twice daily. She developed more fatigue with the increased dose but did not want to go down because it was working well. She instead decreased her gabapentin dose from 9 tablets daily to 1 tablet twice a day. She uses a tegaderm patch to keep the buprenorph ine on. She also uses tylenol arthritis 2 pills twice a day which is covered by her insurance. Health Concerns Section Related Observation LastModified by Organization Detai ls LastModified Time None Recorded Concern Status LastModified by Organization Details LastModified Time None Recorded Advance Directives Directive Y: HCP is Jose Begum (brother); copy at [employer] P[employer] Encounter Date Sequence Insurance Name Policy Number Policy Segura Covered Member ID Segura Member ID Guarantor Name 02/20/2024 1 [facility] [employer] - DOS ON OR AFTER 2022 - MEDICARE [place]VANTAGE [place]/ADV ANTAGE - PPO) Maren Begum [id number] Maren Begum 03/01/2024 1 [facility] - DOS ON OR AFTER 2022 - [place]IC[place]/ADV ANTAGE - PPO) Maren Begum [id number] Maren Begum 04/11/2024 1 [facility] - DOS ON OR AFTER 2022 - [place]/ADV ANTAGE - PPO) Maren Preston Shy [id number] Maren C Shy 04/19/2024 1 [facility] - DOS ON OR AFTER 2022 - [place]/ADV ANTAGE - PPO) Maren Preston Shy [id number] Maren Kary Begum 05/31/2024 1 [facility] - DOS ON OR AFTER 2022 - [place]/ADV ANTAGE - PPO) Maren Preston Shy [id number] Maren Preston Shy Notes Date Note Type Note Provider Name and Address Organization Details Recorded Time 02/20/2024 text/html 63yo with sympto ms of cough, headache and nasal congestion x48 hours. Called for office appt this morning and was asked to take a home COVID test, which was positive. Notes that she has not had fevers, loose stools, diarrhea, nausea or vomiting. States that symptoms are milder than prior COVID infection. Was not given Paxlovid because of renal insufficiency and drug interactions, but had good result with Lagevrio. Noted to have chronic dyspnea related to HFpEF that is not worse with recent illness. Denies CP. Aric Espitia MD [address], [address], [facility] 02/20/2024 14:20:19 03/01/2024 text/html She has been doi ng well since there was a change in her regimen instituted by Dr Serra. She started on buprenorphine patch first 10 and then 15 mg and since that has used her tramadol infrequently and cut back on her neurontin from 2700 mg daily to 600 mg daily. She is very happy with her control Nghia Vieira MD [address], [address], [facility] 03/01/2024 17:04:16 04/11/2024 text/html Diabetes F/UReported bypatient.Review finger sticks:fastin-110s; Checks once per day with [facility]. Context:normal range of home blood sugars (in the low 100s); seeing eye doctor regularly; checking feet regularly; taking aspirin daily; not missing doses of medications; no side effects from medications; Seeing eye doctor regularly, has radiology transcriptionist appt tomorrow. Associated Symptoms:no dizziness; no sweats; no headaches; no confusion; no increased thirst; no increased appetite; no increased urination; no blurred vision; no numbness of feet; no calluses on feet;weight loss (2 lbs)Notes:A1c was 6% 1 month ago.Meds: Jardiance 10 mg, glimepiride 2 mg only if steroid injection is given and glucose is up. Mounjaro was started last month at 2.5 mg weekly. Pt. reports good tolerance and no constipation. Lost only 2 lbs since the start of med.CKD stg 3A is stable. Blood pressure is stable on isosorbide, torsemide, metoprolol. No microalbuminuria. Lipids are stable.Diabetic eye exam scheduled for 2 weeks from now. Pt. sees radiology transcriptionist every 3 m. Tatianna Smallwood PA-C [address], [address], [facility] 04/11/2024 11:00:40 04/19/2024 text/html She has been doi ng well since there was a change in her regimen instituted by Dr Serra. She started on buprenorphine patch first 10 and then 15 mg and since then has used her tramadol infrequently (only twice this past month) and cut back on her neurontin from 2700 mg daily to 600 mg daily. She is very happy with her control. She has also been taking tylenol arthritis 650 mg twice a day which also helps with her pain. She has been buying it OTC but would like a script sent to her pharmacy. Nghia Vieira MD [address] [address], [place], [address], [facility] 04/19/2024 15:40:57 05/31/2024 text/html She has been doi ng well since there was a change in her regimen instituted by Dr Serra. She started on buprenorphine patch first 10 and then 15 mg and since then has used her tramadol infrequently (only twice this past month) and cut back on her neurontin from 2700 mg daily to 600 mg daily. She is very happy with her control. She has also been taking tylenol arthritis 650 mg twice a day which also helps with her pain. Her insurance covers this. Nghia Vieira MD [address] [address], [place], [address], [facility] 05/31/2024 15:12:15 OBGyn Episode No OBEpisode recorded.
== END 2024-07-10 14:49 | disposition home or self-care (01) ==
LOC: HO.RHE 13:51
PROVIDERS: PCP Physician Assistant Medical; Visit Provider Student in an Organized Health Care Education/Training Program
DX: M06.09 Rheumatoid arthritis without rheumatoid factor, multiple sites (principal); Z13.820 Encounter for screening for osteoporosis; Z51.81 Encounter for therapeutic drug level monitoring; Z79.620 Long term (current) use of immunosuppressive biologic
CPT/HCPCS: 99215; G2211

== ENCOUNTER → 2024-07-10 13:50 | Outpatient (BNVA) | payer OTHER, SELFPAY | PROVIDERS: PCP Physician Assistant Medical; Visit Provider Student in an Organized Health Care Education/Training Program | DX: M06.042 Rheumatoid arthritis without rheumatoid factor, left hand (principal); M06.041 Rheumatoid arthritis without rheumatoid factor, right hand; Z51.81 Encounter for therapeutic drug level monitoring; Z13.820 Encounter for screening for osteoporosis; Z79.620 Long term (current) use of immunosuppressive biologic | CPT/HCPCS: 99212 ==

== ENCOUNTER 2024-08-16 13:59 | Outpatient (REF) | payer OTHER, SELFPAY ==
--- NOTE | ~2024-08-16 | MM_ITS ---
EXAMINATION: DXA BONE DENSITY AXIAL HISTORY: M81.0 - Age-related osteoporosis without current pathological fracture TECHNIQUE: [employer] (P) Limited Dual energy absorptiometry (DEXA) of the lumbar spine, total left hip, and femoral neck was performed. COMPARISON: There are no prior studies for comparison. FINDINGS: The bone mineral density of the lumbar spine is 1.265 g/cm2, corresponding to a T-score of 0.8, and a Z-score of 1.6. This is indicative of normal bone mineral density. The bone mineral density of the left total hip is 0.985 g/cm2, corresponding to a T-score of -0.2, and a Z-score of 0.4. This is indicative of normal bone mineral density. The bone mineral density of the left femoral neck is 0.881 g/cm2, corresponding to a T-score of -1.1, and a Z-score of -0.2. This is indicative of osteopenia. MM/XR DEXA axial skeleton IMPRESSION: Based on bone mineral density, and according to World Health Organization (WHO) criteria, the diagnosis is consistent with osteopenia. Statistically, 68% of repeat scans fall within 1 SD (+/- 0.010 g/cm2 for AP spine L1-L4) and 1 SD (+/- 0.012 g/cm2 for femur total) FRAX is a trademark of the [employer] [place] [facility] Met[employer], a World Health Organization (WHO) Collaborating Center. Electronically signed by: Sina Perkins MD 08/16/2024 02:42 PM EDT
--- OUTSIDE RECORDS SUMMARY | 2024-08-16 14:07 | XMS_ITS | Clinical Summary ---
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 Insert SmartText 018 Active empagliflozin (Jardiance) 10 mg tablet Take 1 Tablet by mouth daily. 024 Active gabapentin (NEURONTIN) 300 mg capsule 1 capsule (300 mg total) 2 (two) times a day. Active isosorbide mononitrate (IMDUR) 30 mg 24 hr tablet at bedtime. TAKE 1/2 TABLET BY MOUTH DAILY IN THE MORNING 024 Active losartan (COZAAR) 25 mg tablet Take 1 Tablet by mouth daily. 023 Active metoprolol succinate (TOPROL-XL) 25 mg 24 hr tablet Take 1 Tablet by mouth daily. 12/28/2 023 Active oxyBUTYnin (DITROPAN) 5 mg tablet Take 10 mg by mouth daily. Active rizatriptan (MAXALT) 5 mg tablet Take 1 Tab by mouth 2 times daily as needed for Migraine. May repeat in 2 hours if needed Active venlafaxine 150 mg 24 hr tablet Take 1 Tab by mouth daily. Active cyclobenzaprine (FLEXERIL) 5 mg tablet TAKE 1 TABLET BY MOUTH THREE TIMES DAILY NEEDED Active glucose blood test strip by Other route. USE 1 STRIP THREE TIMES DAILY Active ondansetron (ZOFRAN) 4 mg tablet Active calcium carbonate (TUMS) 500 mg (200 mg elemental calcium) chewable tablet Take by mouth 4 X daily - oral. Active traMADoL (ULTRAM) 50 mg tablet Take by mouth. Take 1 Tab by mouth 2 times daily as needed for Pain. - Oral Active rOPINIRole (REQUIP) 1 mg tablet Take 3 tablets (3 mg total) by mouth at bedtime. TAKE 1 TABLET BY MOUTH HALF HOUR BEFORE BED, AND 1 1/2 TABLET AT BEDTIME Active traZODone (DESYREL) 50 mg tablet Active torsemide (DEMADEX) 20 mg tablet Take 1-3 tablets (20-60 mg total) by mouth 1 (one) time each day. Active pravastatin (PRAVACHOL) 10 mg tablet Active cholecalciferol (VITAMIN D-3) 50 mcg (2,000 unit) capsule Take 1 capsule (2,000 Units total) by mouth 1 (one) time each day. Active Vevye 0.1 % drops Take 1 drop by mouth 2 (two) times a day. Active EnbreL SureClick 50 mg/mL (1 mL) injection pen Inject 1 mL (50 mg total) under the skin 1 (one) time per week. Active Breo Ellipta 100-25 mcg/dose inhaler Inhale 1 puff by mouth 1 (one) time each day. Active polyethylene glycol (PEG) 17 gram/dose oral powder Take 17 g every day by oral route as needed for 30 days. Active multivitamin tablet Take 1 tablet by mouth. Active aspirin 81 mg EC tablet Take 1 tablet (81 mg total) by mouth 1 (one) time each day. 019 Active EPINEPHrine (EPIPEN) 0.3 mg/0.3 mL injection INJECT 0.3 MG INTO THE MUSCLE DIRECTED Active glimepiride (AMARYL) 2 mg tablet TAKE 1 TABLET BY MOUTH DAILY AFTER CORTISONE INJECTION AND CONTINUED UNTIL GLUCOSE IS UNDER 200 RANGE 022 Active naloxone (NARCAN) 4 mg/0.1 mL nasal spray CALL 911. SPR CONTENTS OF ONE SPRAYER (0.1ML) INTO ONE NOSTRIL. REPEAT IN 2-3 MIN IF SYMPTOMS OF OPIOID EMERGENCY PERSIST, ALTERNATE NOSTRILS Active nitroglycerin (NITROSTAT) 0.4 mg SL tablet Active ondansetron ODT (ZOFRAN-ODT) [address] 1 TABLET BY TRANSLINGUAL ROUTE 3 TIMES A DAY NEEDED FOR 10 DAYS 025 Active Gemtesa 75 mg tablet tablet Take 1 tablet (75 mg total) by mouth 1 (one) time each day. Active FreeStyle Lancets 28 gauge lancets USE TO TEST BLOOD GLUCOSE ONCE A DAY 024 Active BD Luer-Reshma Syringe 3 mL 23 x 1 syringe USE TO INJECT BEFORE-12 INJECTION EVERY MONTH DIRECTED 025 Active tiZANidine (ZANAFLEX) 2 mg tablet Take 1 tablet (2 mg total) by mouth 1 (one) time each day if needed. 024 Active flecainide (TAMBOCOR) 150 mg tablet Take 0.5 tablets (75 mg total) by mouth 2 (two) times a day. Active pantoprazole (PROTONIX) 40 mg EC tabletIndications :Gastroesophageal reflux disease without esophagitis,Gastr oesophageal reflux disease, unspecified whether esophagitis present,Salomon's esophagus without dysplasia Take 1 tablet (40 mg total) by mouth 2 (two) times a day. Do not crush, chew, or split. 180 each 3 025 2025 Active loperamide (IMODIUM) 2 mg capsuleIndication s:Diarrhea of presumed infectious origin TAKE 2 CAPSULES BY MOUTH 3 TIMES A DAY NEEDED 180 capsule 1 025 Active loperamide (IMODIUM) 2 mg capsuleIndication s:Diarrhea of presumed infectious origin TAKE 2 CAPSULES BY MOUTH THREE TIMES DAILY NEEDED 180 capsule 3 12/09/2 024 2024 Discontinued Active Problems Problem Noted Date Diagnosed Date Gastroesophageal reflux disease without esophagi tis 12/13/2023 Assessment & Plan (05/07/2024 11:27 AM EDT): Orders: pantoprazole (PROTONIX) 40 mg EC tablet; Take 1 tablet (40 mg total) by mouth 2 (two) times a day. Do not crush, chew, or split. Saloomn's esophagus without dysplasia 12/13/2023 Assessment & Plan (05/07/2024 11:27 AM EDT): Assessment & Plan (03/19/2024 10:53 AM EST): EGD Discussed with patient indications for procedure as well as risks of bleeding, infection, risk of perforation and reaction to anesthesia. Patient is aware of risk of missed lesions. Indications including screening for potential pre-malignant lesions and attempting to remove them. Diabetic Patients: No oral diabetes medications day before procedure General: Patient aware needs a ride home Nor to have liquids for at least three hours before procedure. Patient understands and would like to proceed Orders: ESPHAGOSCOPY Anesthesia - MAC; SP ENDOSCOPY; Future pantoprazole (PROTONIX) 40 mg EC tablet; Take 1 tablet (40 mg total) by mouth 2 (two) times a day. Do not crush, chew, or split. Primary hypertension 12/13/2023 Pure hypercholesterolemia 12/13/2023 Chronic systolic congestive heart failure ([facility] V24, [facility] V28) 12/13/2023 Onychomycosis 11/14/2017 Closed fracture of right femur ([facility] V24, [facility] V28) 10/24/2017 Osteoarthritis of lumbar spine 03/04/2017 Overview (11/08/2023): Occasional epidural steroids Fibromyalgia 09/30/2015 Overview (11/08/2023): On venlafaxine, gabapentin, trazodone Osteoarthritis, knee 10/27/2012 Overview (11/08/2023): R TKR in Nov 2010 Femur fracture 08/24 Pins removed 05/26 Restless leg syndrome 10/27/2012 Overview (11/08/2023): Discovered with sleep study Anemia 02/02/2012 Overview (11/08/2023): Iron deficiency Migraine 08/23/2007 Encounters Date Type Department Care Team Description 07/18/2024 2:30 PM EDT Office Visit Orthopedic [facility] - [facility] [address] [place] [phone] Royal Ball, DPM Primary osteoarthritis of both feet (Primary Dx); Metatarsalgia of both feet; Corns and callosities; Pain in toe of right foot; Acquired hallux valgus of right foot; Posterior tibial tendon dysfunction (PTTD) of right lower extremity; Pain in toe of left foot; Dermatophytosis of nail; Diabetic mononeuropathy simplex ([facility] V24, [facility] V28) from Last 3 Months Immunizations Name Administration Dates Next Due Td Tetanus diptheria (Tdvax) 7yo and older 02/17 Tdap Tetanus diptheria acell ular pertussis (Boostrix; Adacel) 7yo and older 09/06/2007 Surgical History Surgery Date Site/Laterality Comments GASTRIC BYPASS 2002 PROCEDURE: GASTRIC BYPASS FOR OBESIT; COMMENT: Kathy EYE SURGERY PROCEDURE: HISTORICAL EYE SURGERY; COMMENT: Scleral buccal-metal, cataracts; x 7; [facility] [employer] [facility] MAMMOGRAM CARLO 07/15 PROCEDURE: MAMMOGRAM, SCREENING, BOTH BREASTS; COMMENT: neg OTHER SURGICAL HISTORY 05/14 PROCEDURE: OUTSIDE PAP SMEAR; COMMENT: Colin; neg (pp) CHOLECYSTECTOMY 2002 PROCEDURE: HISTORICAL CHOLECYSTECTOMY KNEE SURGERY 2002 PROCEDURE: HISTORICAL KNEE SURGERY; COMMENT: Blaine; Amanda; lat release LUMBAR LAMINECTOMY '83, 85 PROCEDURE: HISTORICAL LUMB LAMINECTOMY COLONOSCOPY 11/09/07 PROCEDURE: SC COLONOSCOPY STOMA DX INCLUDING COLLJ SPEC SPX; COMMENT: Up to cecum, good preparation, normal colon exam. Repeat 11/08/2012 ESOPHAGOGASTRODUODENOSCOPY 11/09/07 PROCEDURE: SC EGD TRANSORAL BIOPSY SINGLE/MULTIPLE; COMMENT: s/p gastric bypass, small gastric pouch with small ulceration, whitish spots over the gastrojejunal anastomosis-bx:chronic gastritis, intestinal metaplasia, surface erosion (consistent with tissue adjancent to ulcer) Medical History Medical History Date Comments Knee pain, bilateral 07/20/2010 DX:Knee nissa n, bilateral Gastric bypass status for obesity 02/28/2008 DX:Gastric bypass status for obesity Migraine 08/23/2007 DX:Migraine Anemia 02/02/2012 DX:Anemia; COMME NT: Iron deficiency Osteoarthritis of lumbar spine 03/04/2017 D X:Osteoarthritis of lumbar spine Family History Medical History Relation Name Comments Breast cancer Aunt maternal Other: stomach cancer Aunt maternal and es ophageal ca; same aunt as # 13 Other: Other Brother 1 Mickulic (autoi mmune) Arthritis Brother 2 Mikulicz synrom e Arthritis Father Colon cancer Father age > 50 Diabetes Father Heart failure Father Other cancer Father Hodgkins Stroke Maternal Grandfather stroke at 95, 97, at 99 Stroke Maternal Grandmother at age 70 Arthritis Mother Breast cancer Mother mets to bone a nd likely brain Hypertension Mother Other: skin cancer Paternal Grandfather ? type unknown; in his late 70s Breast cancer Paternal Grandmother metasatic Other: bone cancer Paternal Grandmother metasatic d ied in her 50s; mets Relation Name Status Comments Aunt maternal Brother 1 Brother 2 Father Maternal Grandfather Maternal Grandmother Mother Paternal Grandfather Paternal Grandmother metasatic Social History Tobacco Use Types Packs/Day Years Used Date Smoking Tobacco: Former Cigarettes Q uit: 02/07/1998 Smokeless Tobacco: Never Tobacco Cessation:Counseling Given: Not Answered Alcohol Use Standard Drinks/Week Comments Yes 0 (1 standard drink = 0.6 oz pur e alcohol) Comments No Sex and Gender Information Value Date Recorded Sex Assigned at Female 03/28/2024 9:38 AM EST Legal Sex Female 8:51 PM EST Gender Identity Female 03/28/2024 9:38 AM EST Sexual Orientation Straight 03/28/2024 9: 38 AM EST Obstetrics History Last Filed Vital Signs Vital Sign Reading Time Taken Comments Blood Pressure 112/60 03/28/2024 11:04 AM EST Pulse 63 03/28/2024 11:04 AM EST Temperature 36.1 C (96.9 F) 03/28/2024 10:19 AM EST Respiratory Rate 16 03/28/2024 11:04 AM EST Oxygen Saturation 100% 03/28/2024 11:04 AM EST Inhaled Oxygen Concentration - - Weight 98.4 kg (217 lb) 05/16/2024 1:13 PM EDT Height 165.1 cm (5' 5 ) 05/16/2024 1:13 PM EDT Body Mass Index 36.11 05/16/2024 1:13 PM EDT Plan of Treatment Upcoming Encounters Date Type Department Care Team (Late st Contact Info) Description 09/13/2024 2:00 PM EDT Office Visit Orthopedic Surgery - [facility] [address] [phone] Royal Ball, ANTONI [address] [address] Health Maintenance Due Date Last Done Comments Diabetes: Annual Foot Exam 1970 Diabetes: Annual Retina Eye Exam 1970 Pneumococcal Vaccine: 50+ Years (1 of 2 - PCV) 05/27/1979 Pneumococcal Vaccine: Pediatrics (0 to 5 Years) and At-Risk Patients (6 to 49 Years) (1 of 2 - PCV) 05/27/1979 Cervical Cancer Screening: Pap Smear 06/11/2013 06/11/2010 Diabetes: Annual GFR (Glomerular Filtration Rate) 04/30/2017 04/30/2016 Zoster Vaccines (2 of 2) 11/01/2019 09/06/2019 RSV Immunization Adult Patients (1 - Risk 60-74 years 1-dose series) 2020 Cholesterol Screening (Lipid Panel) 01/09/2022 06/18/2015 Colorectal Cancer Screening: Colonoscopy 01/09/2022 11/09/2007 Depression Screening 01/09/2022 HIV Screening 01/09/2022 Osteoporosis Screening (Bone Density Screening) 01/09/2022 Social Influencers of Health Screening 01/09/2022 COVID-19 Vaccine ( season) 2023 11/25/2021, 05/29/2021, 01/15/2021, Additional history exists Diabetes: Annual Urine Albumin-Creatinine Ratio (uACR) 12/13/2023 09/20/2013 Diabetes: Blood Sugar Control Test (HGBA1C) 12/13/2023 Hypertension/CHF/CAD Annual BMP Blood Test 12/13/2023 04/30/2016 Breast Cancer Screening 06/22/2024 06/23/2023 Influenza Vaccine (#1) 2024 4, 12/29/2022, 11/25/2021, Additional history exists DTaP,Tdap,and Td Vaccines (4 - Td or Tdap) 01/02/2027 01/02/2017, 09/06/2007, 02/17/2001 Hepatitis C Screening Completed 06/18/2015 HIB Vaccines Aged Out No longer eligi ble based on patient's age to complete this topic HPV Vaccines Aged Out No longer eligi ble based on patient's age to complete this topic Hepatitis A Vaccines Aged Out No long er eligible based on patient's age to complete this topic Hepatitis B Vaccines Aged Out No long er eligible based on patient's age to complete this topic IPV Vaccines Aged Out No longer eligi ble based on patient's age to complete this topic MMR Vaccines Aged Out No longer eligi ble based on patient's age to complete this topic Meningococcal ACWY Vaccine Aged Out N o longer eligible based on patient's age to complete this topic Meningococcal B Vaccine Aged Out No l onger eligible based on patient's age to complete this topic RSV Immunization Patients Under 20 months Aged Out No longer eligible based on patient's age to complete this topic Varicella Vaccines Aged Out No longer eligible based on patient's age to complete this topic Procedures Procedure Name Priority Date/Time Associated Diagnosis Comments ANNUAL BMP BLOOD TEST Routine 04/30/2016 HEPATITIS C SCREENING Routine 06/18/2015 LIPID PANEL Routine 06/18/2015 URINE ALBUMIN CREATININE RATIO Routine 09/20/2013 PAP SMEAR Routine 06/11/2010 COLONOSCOPY Routine 11/09/2007 from Last 3 Months or Most Recently Relevant to Health Maintenance Results * Annual BMP Blood Test (04/30/2016) Annual BMP Blood Test Abstracted Historical Provider HEALTH MAINTENANCE Final Result * Hepatitis C Screening (06/18/2015) Pathologist [facility] Hepatitis C Screening Abstracted [facility] Provider HEALTH MAINTENANCE Final Result * Lipid panel (06/18/2015) [facility] LDL/HDL Ratio 2 <=4 Triglycerides 71 0 - 150 mg/dL Cholesterol 169 0 - 200 mg/dL HDL 84 >=40 mg/dL LDL Cholesterol 71 0 - 100 mg/dL Blood Venous blood specimen / Unknown Result [facility] Provider LAB BLOOD ORDERABLES Corry l Result * Urine Albumin Creatinine Ratio (09/20/2013) [facility] Urine Albumin Creatinine Ratio Abstracted Result [facility] Provider HEALTH MAINTENANCE Final Result * Pap Smear (06/11/2010) Pathologist [facility] Pap smear No interpreta tion,abstr acted Result [facility] Provider HEALTH MAINTENANCE Final Result * Colonoscopy (11/09/2007) [facility] Colonoscopy No interpreta tion,abstr acted Anatomical Region Laterality Modality Other Result [facility] Historical Provider HEALTH MAINTENANCE Final Result from Last 3 Months or Most Recently Relevant to Health Maintenance Insurance [facility] [employer] Member Subscriber Plan / Payer (Ef fective 2022-Present) Name:, Relation to Subscriber:Self Name:Maren Begum Payer ID:[id number] Group ID:[id number] Type:Not on file Address: [place] [address] [address] [address] 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
== END 2024-08-16 14:00 | disposition home or self-care (01) ==
LOC: HO.MAMMO 13:59
PROVIDERS: PCP Physician Assistant Medical; Visit Provider Student in an Organized Health Care Education/Training Program
DX: M81.0 Age-related osteoporosis without current pathological fracture (principal)
CPT/HCPCS: 77080

== ENCOUNTER → 2024-08-16 14:00 | Outpatient (BNV) | payer OTHER, SELFPAY | PROVIDERS: PCP Physician Assistant Medical; Visit Provider Radiology Diagnostic Radiology | DX: E28.39 Other primary ovarian failure (principal) | CPT/HCPCS: 77080 ==

== ENCOUNTER 2024-10-15 13:58 | Outpatient (REF) | payer OTHER, SELFPAY ==
[2024-10-15 17:35] LABS: MANUAL DIFF FLAG NO
[2024-10-15 17:39] LABS: Hematocrit 33.8 % (37.0-47.0); Hemoglobin 11.0 g/dl (12.0-16.0); Imm Gran Abs Auto 0.02 X10*3/uL (0.00-0.03); Imm Gran Pct Auto 0.3 % (0.0-0.4); Lymphocytes Absolute Auto 1.7 X10*3/uL (1.2-4.9); Mean Corpuscular HGB Conc 32.5 g/dl (31.0-35.0); Mean Corpuscular Hemoglobin 29.2 pg (27.0-33.0); Mean Corpuscular Volume 89.7 fL (80.0-98.0); NRBC Abs Auto 0.000 X10*3/uL (0.0-0.012); NRBC Pct Auto 0.0 /100WBC (0.0-0.2); Platelet Count 240 X10*3/uL (160-400); Red Blood Count 3.77 X10*6/uL (4.20-5.50); White Blood Count 7.7 X10*3/uL (4.8-10.8)
[2024-10-15 17:55] LABS: Alanine Aminotransferase 15 U/L (0-31); Albumin Level 3.9 g/dL (3.5-5.0); Alkaline Phosphatase 72 U/L (39-117); Anion Gap 12 (12-20); Aspartate Amino Transferase 23 U/L (5-31); Blood Urea Nitrogen 25 mg/dL (9-16); Calcium 8.9 mg/dL (8.4-10.2); Carbon Dioxide 28 mmol/L (22-29); Chloride 108 mmol/L (96-108); Estimated Glomerular Filt Rate 39; Potassium 4.7 mmol/L (3.3-5.1); Sodium 143 mmol/L (135-145); Total Protein 6.7 g/dL (6.5-8.0)
[2024-10-16 04:21] LABS: HBS Num1 857.27 mIU/mL (0-7.99); HBc Num1 0.07 S/CO (0.00-0.79); HBsAGNum1 0.37 S/CO (0.00-0.99); Hepatitis A Antibody IgM 0.18 Index (0-0.79); Hepatitis B Surface Antigen Negative (Negative); ~HepC Num1 0.08 S/CO (0.00-0.79); ~Hepatitis A Antibody IgM Nonreactive (Nonreactive); ~Hepatitis B Surface Antibody REACTIVE (Nonreactive); ~Hepatitis C Antibody Nonreactive (Nonreactive)
[2024-10-18 09:04] LABS: TS Negative Control Passed; TS Panel A 2; TS Panel B 4; TS Positive Control Passed; TSpotTB Negative (Negative)
== END 2024-10-15 13:59 | disposition home or self-care (01) ==
LOC: HO.HKASLDS 13:58
PROVIDERS: PCP Physician Assistant Medical; Visit Provider Student in an Organized Health Care Education/Training Program
DX: Z51.81 Encounter for therapeutic drug level monitoring (principal); M06.00 Rheumatoid arthritis without rheumatoid factor, unspecified site; M85.859 Other specified disorders of bone density and structure, unspecified thigh; Z79.620 Long term (current) use of immunosuppressive biologic; Z79.52 Long term (current) use of systemic steroids; Z79.899 Other long term (current) drug therapy; Z11.1 Encounter for screening for respiratory tuberculosis; Z11.59 Encounter for screening for other viral diseases
CPT/HCPCS: 36415; 80053; 85025; 85652; 86140; 86481; 86704; 86706; 86709; 86803; 87340; 99212

== ENCOUNTER 2024-10-15 13:58 | Outpatient (AMB) | payer OTHER, SELFPAY ==
--- NOTE | 2024-10-15 14:03 | A.OFFVIS_ITS ---
Vital Signs 10/15/24 14:14 Height 5 ft 5 in Weight 188 lb 11.451 oz BMI 31.4 BP 140/90 H Blood Pressure Location Lt brachial Position Sitting Pulse 71 Pulse Source Pulse Oximeter Pulse Oximetry (%) 97 Oxygen Delivery Method Room Air Intake Visit Reasons: RA Intake Note: Patient presents for RA follow up. Allergies Penicillins Allergy (Severe, Verified 10/15/24 14:11) Anaphylaxis vaccine adjuvant system, AS01B lipo (From Shingrix (PF)) Allergy (Mild, Verified 10/15/24 14:11) Shingles varicella-zoster virus glycoprotein (From Shingrix (PF)) Allergy (Mild, Verified 10/15/24 14:11) Shingles omeprazole (From Prilosec) Adverse Reaction (Severe, Verified 10/15/24 14:11) Rash pregabalin (From Lyrica) Adverse Reaction (Severe, Verified 10/15/24 14:11) fluid gain Medication List - Last Reconciled 10/15/24 by Ana Alvarez MD adalimumab (Humira(CF) Pen) 40 mg (0.4 mL) subcut Q2W aspirin (Adult Aspirin Regimen) 81 mg PO DAILY buprenorphine 15 mcg/hour 1 patch topical QWEEK celecoxib (Celebrex) 200 mg PO BID cholecalciferol (vitamin D3) (Vitamin D3) 125 mcg PO DAILY cyanocobalamin (vitamin B-12) mcg IM cyclobenzaprine 5 mg PO TID PRN cyclosporine 0.1% (Vevye) drps ophthalmic (eye) empagliflozin (Jardiance) 10 mg PO DAILY epinephrine (EpiPen) 0.3 mg IM Q4H PRN flecainide mg PO DAILY gabapentin 300 mg PO BID glimepiride 2 mg PO DAILY PRN isosorbide mononitrate ER 15 mg PO QAM loperamide mg PO losartan 50 mg PO DAILY metoprolol succinate ER 25 mg PO DAILY mirabegron ER (Myrbetriq) 50 mg PO DAILY nitroglycerin 0.4 mg sublingual Q5M PRN ondansetron HCl 4 mg PO Q8H oxybutynin chloride ER 15 mg PO DAILY pantoprazole 40 mg PO BID pravastatin 10 mg PO BEDTIME rizatriptan (Maxalt) take 1 tab at onset of headache; if no relief may repeat 1 tab after at least 2 hrs; max = 3 tabs/24 hr PO ropinirole 3 mg PO BEDTIME tirzepatide (Mounjaro) 5 mg subcut QWEEK tizanidine 2 mg PO BEDTIME torsemide mg PO tramadol 50 mg PO BID PRN trazodone 50 - 100 mg PO BEDTIME venlafaxine ER 150 mg PO DAILY HPI Comments Details: Patient is a 64-year-old female with diabetes, hyperlipidemia, hyperparathyroidism, HFrEF, overactive bladder, hypertension, polyarticular osteoarthritis and seronegative rheumatoid arthritis here today for follow up Interval History: Patient last seen 07/10/24 with me - self discontinued Enbrel due to allergic reaction - In a flare of her disease - started on Humira Today, - On Humira 40mg SC every 2 weeks - Tolerating medication, but noting 3-4 days of nausea after administration - Of note admitted to hospital 08/23 - 08/30 for sepsis 2/2 bacteremia and pyleonephritis, held Humira during that time - Feels that Humira has been 60% effective but still with 2nd and 3rd MCP tenderness and swelling - Also diagnosed with HFrEF Rheumatologic History: Seronegative rheumatoid arthritis -ve RF -ve CCP (initial eval : bilateral hand pain and swelling, worse on the right, symptoms most severe in the 2nd and 3rd MCP, history of right distal tibia fracture with no memory of any trauma.? RT ankle MRI showing multiple tendon tears and tenosynovitis) MTX 04/2023 DC 05/2023 due to nausea & GI upset Enbrel 06/2023 effective - 07/2024. Rash Humira 07/2024 - 10/2024. Diagnosed with HF. TNFs contraindicated Initial history: This is a 62-year-old female who presents for evaluation of bilateral hand pain and swelling. She stated that she used to follow-up with Dr. Gr years ago and was diagnosed with fibromyalgia. She states that for the last 2 and half years she has been having bilateral hand pain and swelling, worse on the right, usually involves the 2nd and 3rd MCP and is now starting to involve the 4th and 5th MCPs. Symptoms not improved with NSAIDs, 2 weeks ago patient was having left hip pain, she took a prednisone prescription that was left over from a prescription for bronchitis last year. The prednisone helped her hip and improved the pain and swelling of her hands. She was also having significant right ankle pain. She was recently evaluated by Pain Management for a spinal cord stimulator right ankle MRI was ordered which showed right distal tibia fracture as well as multiple ligament tears as well as possible tenosynovitis. She was evaluated by a foot and ankle surgeon and no specific treatment was recommended. States that her brother was diagnosed with my Medz ds (IgG4 related ds) and follows up in [place]. She denies any history of DVT/PE Current Rheumatology Medication(s): Humira 40mg SC every 2 weeks [facility] Medical History (Updated 10/15/24 @ 14:51 by Ana Alvarez MD) Osteopenia determined by dual energy x-ray photon absorptiometry (DEXA) scan of hip Hiatal hernia Diffuse spasm of esophagus Obstructive sleep apnea syndrome Osteoporosis Hyperlipidemia Family history of breast cancer Migraine Vitamin D deficiency Restless legs Salomon esophagus Morbid obesity Fibromyalgia Insomnia Cobalamin deficiency Spinal stenosis of lumbar region Lumbar radiculopathy Overactive bladder Chronic kidney disease, stage 3a Pain in left foot Allergy to penicillin ROQUE (dyspnea on exertion) Sensory ataxia Peripheral venous insufficiency Thrombophlebitis of superficial veins of both lower extremities Heart failure with normal ejection fraction Paroxysmal supraventricular tachycardia Coronary atherosclerosis Prinzmetal angina Hypertensive renal disease Anisocoria Chronic pain syndrome Anxiety Major depressive disorder Iron deficiency anemia Surgical History History of total right knee replacement H/O gastric bypass Lumbar post-laminectomy syndrome Family History Mother Hypertension Father Non-Hodgkin lymphoma Hypertension Diabetes Brother Mikulicz syndrome Review of Systems Const Details: Review of Systems Constitutional: Denies fever, chills, weight loss ENT: Denies vision changes, eye pain or eye redness, dental caries, dry mouth GI: Denies nausea, vomiting, diarrhea, abdominal pain, change in BM Pulm: Denies SOB, ROQUE, hemoptysis, wheezing Cards: Denies chest pain, palpitations Skin: Denies Raynaud's, rash, nail changes, photosensitivity, BRUSH FILLER HAND: Denies headaches, weakness, paresthesias, recurrent falls MSK: as per HPI All other systems reviewed and are unremarkable except noted above Physical Exam Exam Exam: Vital signs reviewed Physical Examination CONSTITUITIONAL Patient alert and cooperative. Well appearing and in no apparent painful distress MSK Hands * Right Hand: Able to make a fist. Swelling and TTP of the 2nd and 3rd MCPs. TTP without swelling of the 2nd and 3rd PIPs * Left Hand: Able to make a fist. Swelling and TTP of the 2nd and 3rd MCPs. TTP without swelling of the 2nd and 3rd PIPs Wrists * Right Wrist: Full ROM to flexion and extension. No swelling. TTP * Left Wrist: Full ROM to flexion and extension. No swelling. TTP Elbows * Right Elbow: Full ROM. No swelling or TTP. No TTP of the medial epicondyle. No TTP of the lateral epicondyle * Left Elbow: Full ROM. No swelling or TTP. No TTP of the medial epicondyle. No TTP of the lateral epicondyle Shoulders * Right shoulder: Decreased ROM. No swelling noted. No TTP of the AC joint. No TTP of the subacromial bursa. No TTP of the posterior shoulder * Left shoulder: Decreased ROM. No swelling noted. No TTP of the AC joint. No TTP of the subacromial bursa. No TTP of the posterior shoulder Hip bursa: No tenderness to palpation bilaterally Knees * Right knee: Surgical scar noted. No swelling noted. No TTP of the knee joint line. No TTP of pes anserine bursa * Left knee: No swelling noted. No TTP of the knee joint line. No TTP of pes anserine bursa. Ankles * Right ankle: Good ankle dorsiflexion and plantar flexion. No swelling. No TTP of the ankle joint * Left ankle: Good ankle dorsiflexion and plantar flexion. No swelling. No TTP of the ankle joint Feet * Right foot: Positive squeeze test * Left foot: Negative squeeze test Tender points? * No tenderness to palpation of the bilateral trapezius, supraspinatus, anterior costochondral junctions, bilateral suboccipital muscle insertions SKIN No rashes Vital Signs: Last Vital Signs Pulse 71 10/15/24 14:14 BP 140/90 H 10/15/24 14:14 Pulse Ox 97 10/15/24 14:14 Oxygen Delivery Method Room Air 10/15/24 14:14 BMI result Body Mass Index 31.4 Results Reviewed Results Reviewed: Laboratory Tests 05/01/24 15:25 WBC 8.1 RBC 5.07 Hgb 14.3 Hct 43.8 Plt Count 268 ESR 5 Sodium 143 Potassium 4.3 Chloride 110 H Carbon Dioxide 27 BUN 16 Creatinine 0.91 AST 22 ALT 15 Alkaline Phosphatase 87 C-Reactive Protein 0.28 Rheumatology lab 03/30/23 16:40 Rheumatoid Factor < 13.0 Cycl Citrul Peptide IgG <16 KELLY Screen NEGATIVE Infectious labs 03/30/23 16:40 Hepatitis A IgM Ab Nonreactive Hep Bs Antigen Negative Hep Bs Antibody REACTIVE Hep B Core Total Ab Nonreactive Hepatitis C Ab (EIA) Nonreactive TB Test (T-Spot) Com Negative DEXA 08/2024 FINDINGS: The bone mineral density of the lumbar spine is 1.265 g/cm2, corresponding to a T-score of 0.8, and a Z-score of 1.6. This is indicative of normal bone mineral density. The bone mineral density of the left total hip is 0.985 g/cm2, corresponding to a T-score of -0.2, and a Z-score of 0.4. This is indicative of normal bone mineral density. The bone mineral density of the left femoral neck is 0.881 g/cm2, corresponding to a T-score of -1.1, and a Z-score of -0.2. This is indicative of osteopenia. Assessment & Plan Assessment & Plan (1) Seronegative rheumatoid arthritis: Comment: -ve RF -ve CCP (initial eval : bilateral hand pain and swelling, worse on the right, symptoms most severe in the 2nd and 3rd MCP, history of right distal tibia fracture with no memory of any trauma.? RT ankle MRI showing multiple tendon tears and tenosynovitis) MTX 04/2023 DC 05/2023 due to nausea & GI upset Enbrel 06/2023 effective - 07/2024. Rash Humira 07/2024 - 10/2024. Diagnosed with HF. TNFs contraindicated Actemra 10/2024 Code(s): M06.00 - Rheumatoid arthritis without rheumatoid factor, unspecified site Category: Medical Plan: #Seronegative RA Patient is a 64-year-old female with seronegative rheumatoid arthritis here today for follow up. Has had improvement on Humira but still with tender and swollen joints. Also diagnosed with heart failure which is a contraindication to TNF inhibitors. Will stop Humira and start Actermra. Has no hx of diverticulitis Plan - Stop Humira - Start Actemra 162mg SC every 2 weeks - RTC 4 months - Labs before visit: CBC, CMP, ESR, CRP, lipid panel (2) Osteopenia determined by dual energy x-ray photon absorptiometry (DEXA) scan of hip: Comment: DEXA 08/2024: AP Spine 0.8, Left femur neck -1.1, Left femur total -0.2 Code(s): M85.859 - Other specified disorders of bone density and structure, unspecified thigh Category: Medical (3) Encounter for monitoring tocilizumab therapy: Code(s): Z51.81 - Encounter for therapeutic drug level monitoring; Z79.620 - prison (current) use of immunosuppressive biologic Plan: #Long-term Use of IL 6 Inhibitors: Tocilizumab/Sarilumab Discussed the risks and benefits of IL6 inhibitors with the management of this patient's rheumatic condition. Benefits include decreased pain, improved mortality, improved quality of life Risks include LFT abnormalities, elevated triglycerides, GI perforations Contraindicated in a patient with history of diverticulitis Monitoring: CBC, CMP, triglycerides (4) Screening for osteoporosis: Code(s): Z13.820 - Encounter for screening for osteoporosis Plan: #Screening for osteoporosis Patient with ankle fracture after minimal trauma. 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 (current) use of immunosuppressive biologic Plan: #Long-term Use of TNF Inhibitors: Humira Discussed with the patient the benefits and risks of TNF inhibitors for the management of the rheumatic condition Benefits include reduce pain, maintenance of remission and reduction of flares as well as ?progression of the disease Risks include injection sites/infusion reactions, serious infections (such as bacterial infections, opportunistic infections), malignancy, delaminating syndromes, autoimmune phenomena, CHF exacerbations, palmar plantar psoriasis and cytopenias Recommended rotating injection sites, and holding medication during and for up to 1 week after resolution of a febrile illness or open skin wound Plan I spent 33 minutes reviewing the record and labs, taking a history, examining the patient, discussing the treatment plan, ordering diagnostic work up and documenting in the medical record Medications: New tocilizumab (Actemra ACTPen) 162 mg (0.9 mL) subcut Q2W 1.8 mL 5RF M06.00 - Rheumatoid arthritis without rheumatoid factor, unspecified site Discontinued adalimumab (Humira(CF) Pen) Discontinued Reason: Doctor's Order 40 mg (0.4 mL) subcut Q2W 2 ea 5RF M06.00 - Rheumatoid arthritis without rheumatoid factor, unspecified site Coding Level of Care Code Est Pt Level 4 (56399) Complex EM visit Add On G2211 Diagnoses Seronegative rheumatoid arthritis M06.00 Osteopenia determined by dual energy x-ray photon absorptiometry (DEXA) scan of hip M85.859 Encounter for monitoring tocilizumab therapy Z51.81; Z79.620 Screening for osteoporosis Z13.820 Encounter for monitoring of adalimumab therapy Z51.81; Z79.620
[2024-10-15 14:14] VITALS: BP 140/90; PULSE 71; O2SAT 97; BMI 31.4
--- OUTSIDE RECORDS SUMMARY | 2024-10-15 16:21 | XMS_ITS | Encounter Summary ---
Author Organization [facility] Address [address] [place] [address] Phone Care Team Providers Care Cross Country/Track And Field Coach Name Role Phone Vinicio Edmond PA-C Primary Care Provider [phone]- [phone] Encounter Details Date Type Department Care Team (Late Contact Info) Description 10/10/2024 Documentation Only [facility] [address] [place] [address] Greta Dash [place] [address] [place] [address] Social History Tobacco Use Types Packs/Day Years Used Date Smoking Tobacco: Never Assessed Comments Unknown Sex and Gender Information Value Date Recorded Sex Assigned at Not on file Legal Sex Female 1:18 PM EDT Gender Identity Not on file Sexual Orientation Not on file documented as of this encounter Plan of Treatment Upcoming Encounters Date Type Department Care Team (Late st Contact Info) Description 12/17/2024 3:00 PM EST Office Visit [facility] [address] [place] [address] Jesse Crabtree MD [address] [place] [address] documented as of this encounter Visit Diagnoses Not on filedocumented in this encounter Care Teams Cross Country/Track And Field Coach Relationship Specialty Start Date End Date Vinicio Edmond PA-C [address] [facility] [place], [place] PCP - General Physician Employment Coach 10/04/24 documented as of this encounter
--- OUTSIDE RECORDS SUMMARY | 2024-10-15 16:21 | XMS_ITS | Encounter Summary ---
Author Organization [facility] Address [address] [place] [address] Phone Care Team Providers Care Sales Development Representative Name Role Phone Vinicio Edmond PA-C Primary Care Provider [phone]- [phone] Encounter Details Date Type Department Care Team (Late Contact Info) Description 10/04/2024 Documentation Only [facility] [address] [place] [address] Margaret Ribera [place] [address] [place] [address] Social History Tobacco Use Types [...] Visit [facility] [address] [place] [address] Jesse Crabtree MD [address] [place] [address] documented as of this encounter Visit Diagnoses Not on filedocumented in this encounter Care Teams Sales Development Representative Relationship Specialty Start Date End Date Vinicio Edmond PA-C [address] [facility] [place], [place] PCP - General Physician Traditional Chinese Herbalist 8/28/25 documented as of this encounter
--- OUTSIDE RECORDS SUMMARY | 2024-10-15 16:21 | XMS_ITS | Clinical Summary ---
Author Organization [facility] Address [address] [place] [address] Phone Care Team Providers Care Fur Repairer Name Role Phone EdmondVinicio Brigette SUTTON Primary Care Provider [phone]- [phone] Encounters Date Type Department Care Team Description 10/11/2024 Documentation Only [facility] [address] [place] [address] Margaret Ribera MA 10/10/2024 Documentation Only [facility] [address] [place] [address] Greta Dash MA 10/04/2024 Documentation Only [facility] [address] [place] [address] Margaret Ribera MA from Last 3 Months Social History Tobacco Use Types Packs/Day Years Used Date Smoking Tobacco: Never Assessed Comments Unknown Sex and Gender Information Value Date Recorded Sex Assigned at Not on file Legal Sex Female 1:18 PM EDT Gender Identity Not on file Sexual Orientation Not on file Plan of Treatment Upcoming Encounters Date Type Department Care Team (Late st Contact Info) Description 12/17/2024 3:00 PM EST Office Visit [facility] [address] [place] [address] Jesse Crabtree MD [address] [place] [address] [place] [id number] Health Maintenance Due Date Last Done Comments Breast Cancer Screening 1960 Colorectal Cancer Screening: Annual FOBT 2009 Colorectal Cancer Screening: Colonoscopy 2009 Colorectal Cancer Screening: Sigmoidoscopy 2009 Pneumococcal Vaccine: 50+ Ye ars (1 of 1 - PCV) 2010 Diabetes: Hemoglobin A1C 10/04/2024 Diabetes: Ophthalmology Exam 10/04/2024 Diabetes: Pedal Pulse Checked 10/04/2024 Diabetes: Sensory Foot Exam 10/04/2024 Diabetes: Visual Foot Exam 10/04/2024 Influenza Vaccine (#1) 2024 Hepatitis B Vaccine Aged Out No longe r eligible based on patient's age to complete this topic Insurance [facility] One Care Dual SNP ([id number]) Care Teams Fur Repairer Relationship Specialty Start Date End Date Vinicio Edmond PA-C [address] [facility] [address] [place], [place] PCP - General Physician Junior Programmer 10/04/24
--- OUTSIDE RECORDS SUMMARY | 2024-10-15 16:21 | XMS_ITS | Encounter Summary ---
Author Organization [facility] Address [address] [place] [address] Phone Care Team Providers Care Steel Fixer Name Role Phone Vinicio Edmond PA-C Primary Care Provider +1- [phone] Encounter Details Date Type Department Care Team (Late Contact Info) Description 10/11/2024 Documentation Only [facility] [address] [place] [address] Margaret Ribera [place] [address] [place] [address] Social History Tobacco Use Types [...] Visit [facility] [address] [place] [address] Jesse Crabtree MD [address] [place] [address] documented as of this encounter Visit Diagnoses Not on filedocumented in this encounter Care Teams Steel Fixer Relationship Specialty Start Date End Date Vinicio Edmond PA-C [address] [facility] [place], [place] PCP - General Physician Relief Man 8/28/25 documented as of this encounter
--- OUTSIDE RECORDS SUMMARY | 2024-10-15 16:21 | XMS_ITS | Clinical Summary ---
Author Organization [facility] [address] [facility] Address [address] [place] [address] Phone Care Team Providers Care [employer] Dem[employer] Name Role Phone Vinicio Edmond Primary Care Provider + [phone] Allergies Active Allergy Reactions Criticality Noted Date [...] A DAY NEEDED 180 capsule 1 025 2024 Discontinued Active Problems Problem Noted Date Diagnosed Date Gastroesophageal reflux disease without esophagi tis 12/13/2023 Assessment & Plan (05/07/2024 11:27 AM EDT): Orders: pantoprazole (PROTONIX) 40 mg EC tablet; Take 1 tablet (40 mg total) by mouth 2 (two) times a day. Do not crush, chew, or split. Salomon's esophagus without dysplasia 12/13/2023 Assessment & Plan [...] hypercholesterolemia 12/13/2023 Chronic systolic congestive heart failure ([facility] V24, [facility] V28) 12/13/2023 Onychomycosis 11/14/2017 Closed fracture of right femur ([facility] V24, [facility] /[facility] V28) 10/24/2017 Osteoarthritis of lumbar spine 03/04/2017 Overview (11/08/2023): Occasional epidural steroids Fibromyalgia 09/30/2015 Overview (11/08/2023): On venlafaxine, gabapentin, trazodone Osteoarthritis, knee 10/27/2012 Overview (11/08/2023): R TKR in Nov 2010 Femur fracture 08/24 Pins removed 05/26 Restless leg syndrome 10/27/2012 Overview (11/08/2023): Discovered with sleep study Anemia 02/02/2012 Overview (11/08/2023): Iron deficiency Migraine 08/23/2007 Encounters Date Type Department Care Team Description 09/13/2024 2:00 PM EDT Office Visit Orthopedic Surgery [facility] [address] [phone] Royal Ball DPM Primary osteoarthritis of both feet (Primary Dx); Metatarsalgia of both feet; Corns and callosities; Acquired hallux valgus of right foot; Dermatophytosis of nail; Pain in toe of left foot; Posterior tibial tendon dysfunction (PTTD) of right lower extremity; Diabetic mononeuropathy simplex ([facility] V24, [facility] V28); Difficulty walking; Pain in toe of right foot; Ingrowing nail 07/18/2024 2:30 PM EDT Office Visit Orthopedic Surgery [facility] [address] [phone] Royal Ball DPM Primary osteoarthritis of both feet (Primary Dx); Metatarsalgia of both feet; Corns and callosities; Pain in toe of right foot; Acquired hallux valgus of right foot; Posterior tibial tendon dysfunction (PTTD) of right lower extremity; Pain in toe of left foot; Dermatophytosis of nail; Diabetic mononeuropathy simplex (CMS/HCC V24, CMS/HCC V28) from Last 3 Months Immunizations Name [...] 05/14 PROCEDURE: OUTSIDE PAP SMEAR; COMMENT: Colin; radha (pp) CHOLECYSTECTOMY 2002 PROCEDURE: HISTORICAL CHOLECYSTECTOMY KNEE SURGERY 2002 PROCEDURE: HISTORICAL KNEE SURGERY; COMMENT: Chasity Patel; lat release LUMBAR LAMINECTOMY , PROCEDURE: HISTORICAL LUMB LAMINECTOMY COLONOSCOPY 11/09/07 PROCEDURE: [place] COLONOSCOPY STOMA DX INCLUDING COLLJ SPEC SPX; COMMENT: Up to cecum, good preparation, normal colon exam. Repeat 11/08/2012 ESOPHAGOGASTRODUODENOSCOPY 11/09/07 PROCEDURE: [place] EGD TRANSORAL BIOPSY SINGLE/MULTIPLE; COMMENT: s/p gastric [...] Team (Late st Contact Info) Description 12/17/2024 1:45 PM EST Office Visit Orthopedic Surgery - [place] [id number] [phone] Royal Ball, DPM [address] [phone] Health Maintenance Due Date Last Done Comments Diabetes: Annual Foot Exam 1970 Diabetes: Annual Retina Eye Exam 1970 Pneumococcal Vaccine: 50+ Years (1 of 2 - PCV) 05/27/1979 Cervical Cancer Screening: Pap Smear 06/11/2013 06/11/2010 Diabetes: Annual GFR (Glomerular Filtration Rate) 04/30/2017 04/30/2016 Zoster Vaccines (2 of 2) 11/01/2019 09/06/2019 RSV Immunization Adult Patients (1 - Risk 60-74 years 1-dose series) 2020 Cholesterol Screening (Lipid Panel) 01/09/2022 06/18/2015 Colorectal Cancer Screening: Colonoscopy 01/09/2022 11/09/2007 HIV Screening 01/09/2022 Osteoporosis Screening (Bone Density Screening) 01/09/2022 Social Influencers of Health Screening 01/09/2022 Diabetes: Annual Urine Albumin-Creatinine Ratio (uACR) 12/13/2023 09/20/2013 Diabetes: Blood Sugar Control Test (HGBA1C) 12/13/2023 Hypertension/CHF/CAD Annual BMP Blood Test 12/13/2023 04/30/2016 Depression Screening 02/08/2024 Breast Cancer Screening 06/22/2024 06/23/2023 COVID-19 Vaccine ( - season) 2024 11/25/2021, 05/29/2021, 01/15/2021, Additional history exists Influenza Vaccine (#1) 2024 , 12/29/2022, 11/25/2021, Additional history exists DTaP,Tdap,and Td [...] Comments ANNUAL BMP BLOOD TEST Routine 04/30/2016 HM HEPATITIS C SCREENING Routine 06/18/2015 LIPID PANEL Routine 06/18/2015 URINE ALBUMIN CREATININE RATIO Routine 09/20/2013 PAP SMEAR Routine 06/11/2010 COLONOSCOPY Routine 11/09/2007 from Last 3 Months or Most Recently Relevant to Health Maintenance Results * Annual BMP Blood Test (04/30/2016) Pathologist [facility] Annual BMP Blood Test Abstracted [facility] Provider HEALTH MAINTENANCE Final Result * Hepatitis C Screening (06/18/2015) Pathologist [facility] Hepatitis C Screening Abstracted [facility] HEALTH MAINTENANCE Final Result * Lipid panel (06/18/2015) Pathologist [facility] LDL/HDL Ratio 2 <=4 Triglycerides 71 0 - 150 mg/dL Cholesterol 169 0 - 200 mg/dL HDL 84 >=40 mg/dL LDL Cholesterol 71 0 - 100 mg/dL Blood Venous blood specimen / Unknown Result [facility]ly [facility] LAB BLOOD ORDERABLES Corry l Result * Urine Albumin Creatinine Ratio (09/20/2013) Pathologist [facility] Urine Albumin Creatinine Ratio Abstracted [facility] HEALTH MAINTENANCE Final Result * Pap Smear (06/11/2010) Pathologist [facility] Pap smear No interpreta tion,abstr acted [facility] HEALTH MAINTENANCE Final Result * Colonoscopy (11/09/2007) Pathologist [facility] Colonoscopy No interpreta tion,abstr acted Anatomical Region Laterality Modality Other [facility] Provider HEALTH MAINTENANCE Final Result from Last 3 Months or Most Recently Relevant to Health Maintenance Insurance [employer] Member Subscriber Plan / Payer (Ef fective 2022-Present) Name:MAREN BEGUM Relation to Subscriber:Self Name:Maren Begum Payer ID:[id number] Group ID:[id number] Type:Not on file Address: [place] [address] [address] [phone] Care Teams [employer] Dem[employer] Relationship Specialty Start Date End Date Vinicio Edmond PA [address] [phone] PCP - General Internal Medicine 10/22/19
== END 2024-10-15 14:45 | disposition home or self-care (01) ==
LOC: HO.RHES 13:58
PROVIDERS: PCP Physician Assistant Medical; Visit Provider Student in an Organized Health Care Education/Training Program
DX: M06.09 Rheumatoid arthritis without rheumatoid factor, multiple sites (principal); M85.859 Other specified disorders of bone density and structure, unspecified thigh; Z51.81 Encounter for therapeutic drug level monitoring; Z79.620 Long term (current) use of immunosuppressive biologic; Z13.820 Encounter for screening for osteoporosis
CPT/HCPCS: 99214; G2211